=== PATIENT | male | born 1965 | race American Indian/Alaskan Native ===

== ENCOUNTER 2018-12-22 12:16 | Inpatient (IN) | payer MEDICARE ==
[2018-12-22] MEDS ORDERED: ACTIVASE ONE (12:29)
--- NOTE | 2018-12-22 12:41 | Emergency Department Report ---
ED Neuro Deficit HPI - General Chief Complaint: Neuro Symptoms/Deficit Stated Complaint: POSSIBLE STROKE Time Seen by Provider: 12/22/18 12:32 Source: patient, family, EMS (verbal report received from EMS.ems notes not available at time of chart dictation), RN notes reviewed Mode of arrival: Ambulatory Limitations: Physical Limitation, Other (the patient is a poor historian. The patient's is a poor historian.) - History of Present Illness Initial Comments: This is a 53-year-old gentleman. The patient is not known to this provider previously. He does not know who his primary care doctor is. His does not know who his primary care doctor is. He reportedly has a history of hypertension, 2 strokes, residual left-sided weakness, left-sided facial droop, and residual dysarthria. He may or may not have a formal diagnosis of seizures. He is not sure. His is not sure. History obtained from the patient and his . His indicates the patient was in his usual state of health up until approximately 10:30 AM. They were eating breakfast this morning. She reports that she went upstairs, called his name, and he did not answer back as usual. She reports that she then walked down the stairs, and found him slumped over at a table, not responsive, and sweating. She is not sure how long this episode lasted for. She does not think that there was any trauma. She contacted 911. Patient had normal fingerstick in the field. In the field, as per EMS, the patient was a phasic, and a code stroke is called overhead. A noncontrast CT scan of the brain was negative for acute disease. After returning from CT scan, the patient was noted to be moving his arms and legs without difficulty, with the exception of left-sided weakness, which his indicated was at his baseline. His a facial improved. The patient indicated no pain. The patient is not able to describe exacerbating or relieving factors, qualitative nature of his symptoms, or radiation of his symptoms. However, he indicated no headache, no neck pain, no chest pain, no abdominal pain, no urinary symptoms. His believes that he takes for blood pressure medications, that he may take systemic anticoagulation, but she is not sure. Neither the patient or his are able to procure a complete list of his medications at this time. -: Sudden Location: speech, left face, left arm Presenting Symptoms: Present: Weak/Paralyzed One Side, Unable to Speak Clearly, Altered Mental Status History of same: Yes Place: home Severity: severe Quality: other Improves With: other Worsens With: other - Related Data Home Medications: Home Medications Medication Instructions Recorded Confirmed Last Taken Aspirin [Adult Aspirin] 81 mg PO DAILY 12/22/18 12/22/18 12/22/18 AtorvaSTATin [Lipitor] 40 mg PO DAILY 12/22/18 12/22/18 12/22/18 Carvedilol [Coreg] 25 mg PO BID 12/22/18 12/22/18 12/22/18 Losartan [Cozaar] 50 mg PO QDAY 12/22/18 12/22/18 12/22/18 amLODIPine [Norvasc] 10 mg PO DAILY 12/22/18 12/22/18 12/22/18 hydrALAZINE [Apresoline TAB] 30 mg PO TID 12/22/18 12/22/18 12/22/18 Allergies/Adverse Reactions: Allergies Allergy/AdvReac Type Severity Reaction Status Date / Time No Known Allergies Allergy Unverified 12/22/18 12:19 ED Review of Systems ROS: Stated complaint: POSSIBLE STROKE Other details as noted in HPI Comment: Unobtainable due to pts medical conditions Constitutional: weakness Eyes: denies: eye discharge ENT: denies: epistaxis Respiratory: denies: cough Cardiovascular: denies: chest pain Gastrointestinal: denies: abdominal pain Genitourinary: denies: dysuria Neurological: weakness ED Past Medical Hx - Past Medical History Hx Hypertension: Yes Hx CVA: Yes (left weakness) Hx Seizures: Yes - Surgical History Past Surgical History?: No - Medications Home Medications: Home Medications Medication Instructions Recorded Confirmed Last Taken Type Aspirin [Adult Aspirin] 81 mg PO DAILY 12/22/18 12/22/18 12/22/18 History AtorvaSTATin [Lipitor] 40 mg PO DAILY 12/22/18 12/22/18 12/22/18 History Carvedilol [Coreg] 25 mg PO BID 12/22/18 12/22/18 12/22/18 History Losartan [Cozaar] 50 mg PO QDAY 12/22/18 12/22/18 12/22/18 History amLODIPine [Norvasc] 10 mg PO DAILY 12/22/18 12/22/18 12/22/18 History hydrALAZINE [Apresoline TAB] 30 mg PO TID 12/22/18 12/22/18 12/22/18 History ED Neuro Physical Exam - General Limitations: Physical Limitation, Other (patient is a poor historian.) General appearance: alert, in no apparent distress Suspected Stroke: No - Head Head exam: Present: atraumatic, normocephalic - Eye Eye exam: Present: normal appearance, EOMI. Absent: nystagmus - ENT ENT exam: Present: normal exam, normal orophraynx, mucous membranes moist, normal external ear exam - Neck Neck exam: Present: normal inspection, full ROM. Absent: tenderness, meningismus - Respiratory Respiratory exam: Present: normal lung sounds bilaterally. Absent: respiratory distress - Cardiovascular Cardiovascular Exam: Present: regular rate, normal rhythm, normal heart sounds. Absent: bradycardia, tachycardia, irregular rhythm, systolic murmur, diastolic murmur, rubs, gallop - GI/Abdominal GI/Abdominal exam: Present: soft. Absent: distended, tenderness, guarding, rebound, rigid, pulsatile mass - Rectal Rectal exam: Present: deferred - Extremities Exam Extremities exam: Present: normal inspection, other (2+ pulses noted in the bilateral upper, lower extremities. Compartments soft. No long bony tenderness. The pelvis is stable.). Absent: tenderness, joint swelling, calf tenderness - Back Exam Back exam: Present: normal inspection, full ROM. Absent: tenderness, CVA tenderness (R), CVA tenderness (L), paraspinal tenderness, vertebral tenderness - Neurological Exam Neurological exam: Present: alert, other (there is a left-sided facial droop. The extraocular movements are intact bilaterally. Hearing is grossly intact. Tongue is midline. Visual acuity is grossly intact to finger counting. Shoulder shrug is intact bilaterally. There is 4 out of 5 strength left arm, left leg. There is 5 out of 5 strength right arm, right leg. Patient endorses equal sensation to light touch bilateral upper, lower extremities.) - NIHSS Assessment Interval: Baseline 1a. Level of Consciousness: alert/keenly responsive 1b. LOC Questions: answers both correctly 1c. LOC Commands: performs tasks correctly 2. Best Gaze: normal 3. Visual: no visual loss 4. Facial Palsy: minor paralysis 5b. Motor Arm Right: no drift 5a. Motor Arm Left: drift 6a. Motor Leg Left: drift 6b. Motor Leg Right: no drift 7. Limb Ataxia: absent 8. Sensory: normal 9. Best Language: no aphasia 10. Dysarthria: mild/moderate dysarthria 11. Extinction/Inattention: no abnormality Total Score: 4 Stroke Severity: Minor Stroke - Psychiatric Psychiatric exam: Present: normal affect, normal mood, flat affect - Skin Skin exam: Present: warm, dry, intact, normal color. Absent: rash ED Course Vital Signs 12/22/18 12/22/18 12:37 12:48 Temperature 98.2 F Pulse Rate 71 Respiratory 15 15 Rate Blood Pressure 123/62 [Left] O2 Sat by Pulse 96 99 Oximetry - Lab Data Result diagrams: 12/22/18 12:50 12/22/18 12:50 Lab Results 12/22/18 12/22/18 12/22/18 Range/Units 12:50 12:50 12:50 WBC 9.2 (4.5-11.0) K/mm3 RBC 5.00 (3.65-5.03) M/mm3 Hgb 12.2 (11.8-15.2) gm/dl Hct 38.1 (35.5-45.6) % MCV 76 L (84-94) fl MCH 24 L (28-32) pg MCHC 32 (32-34) % RDW 14.9 (13.2-15.2) % Plt Count 269 (140-440) K/mm3 Lymph % (Auto) 17.0 (13.4-35.0) % [place] % (Auto) 5.7 (0.0-7.3) % Eos % (Auto) 0.6 (0.0-4.3) % Baso % (Auto) 0.6 (0.0-1.8) % Lymph # 1.6 (1.2-5.4) K/mm3 [place] # 0.5 (0.0-0.8) K/mm3 Eos # 0.1 (0.0-0.4) K/mm3 Baso # 0.1 (0.0-0.1) K/mm3 Seg Neutrophils % 76.1 H (40.0-70.0) % Seg Neutrophils # 7.0 (1.8-7.7) K/mm3 PT 14.6 (12.2-14.9) Sec. INR 1.17 H (0.87-1.13) APTT 29.7 (24.2-36.6) Sec. Thrombin Time (15.1-19.6) Sec. Sodium 138 (137-145) mmol/L Potassium 4.0 (3.6-5.0) mmol/L Chloride 100.8 (98-107) mmol/L Carbon Dioxide 24 (22-30) mmol/L Anion Gap 17 mmol/L BUN 23 H (9-20) mg/dL Creatinine 1.2 (0.8-1.5) mg/dL Estimated GFR > 60 ml/min BUN/Creatinine Ratio 19 % Glucose 103 H (75-100) mg/dL Calcium 9.5 (8.4-10.2) mg/dL Troponin T < 0.010 (0.00-0.029) ng/mL 12/22/18 Range/Units 12:50 WBC (4.5-11.0) K/mm3 RBC (3.65-5.03) M/mm3 Hgb (11.8-15.2) gm/dl Hct (35.5-45.6) % MCV (84-94) fl MCH (28-32) pg MCHC (32-34) % RDW (13.2-15.2) % Plt Count (140-440) K/mm3 Lymph % (Auto) (13.4-35.0) % [place] % (Auto) (0.0-7.3) % Eos % (Auto) (0.0-4.3) % Baso % (Auto) (0.0-1.8) % Lymph # (1.2-5.4) K/mm3 [place] # (0.0-0.8) K/mm3 Eos # (0.0-0.4) K/mm3 Baso # (0.0-0.1) K/mm3 Seg Neutrophils % (40.0-70.0) % Seg Neutrophils # (1.8-7.7) K/mm3 PT (12.2-14.9) Sec. INR (0.87-1.13) APTT (24.2-36.6) Sec. Thrombin Time 16.3 (15.1-19.6) Sec. Sodium (137-145) mmol/L Potassium (3.6-5.0) mmol/L Chloride (98-107) mmol/L Carbon Dioxide (22-30) mmol/L Anion Gap mmol/L BUN (9-20) mg/dL Creatinine (0.8-1.5) mg/dL Estimated GFR ml/min BUN/Creatinine Ratio % Glucose (75-100) mg/dL Calcium (8.4-10.2) mg/dL Troponin T (0.00-0.029) ng/mL Labs 12/22/18 12/22/18 12/22/18 12:50 12:50 12:50 WBC 9.2 RBC 5.00 Hgb 12.2 Hct 38.1 MCV 76 L MCH 24 L MCHC 32 RDW 14.9 Plt Count 269 Lymph % (Auto) 17.0 [place] % (Auto) 5.7 Eos % (Auto) 0.6 Baso % (Auto) 0.6 Lymph # 1.6 [place] # 0.5 Eos # 0.1 Baso # 0.1 Seg Neutrophils % 76.1 H Seg Neutrophils # 7.0 PT 14.6 INR 1.17 H APTT 29.7 Thrombin Time Sodium 138 Potassium 4.0 Chloride 100.8 Carbon Dioxide 24 Anion Gap 17 BUN 23 H Creatinine 1.2 Estimated GFR > 60 BUN/Creatinine Ratio 19 Glucose 103 H Calcium 9.5 Troponin T < 0.010 12/22/18 12:50 WBC RBC Hgb Hct MCV MCH MCHC RDW Plt Count Lymph % (Auto) [place] % (Auto) Eos % (Auto) Baso % (Auto) Lymph # [place] # Eos # Baso # Seg Neutrophils % Seg Neutrophils # PT INR APTT Thrombin Time 16.3 Sodium Potassium Chloride Carbon Dioxide Anion Gap BUN Creatinine Estimated GFR BUN/Creatinine Ratio Glucose Calcium Troponin T Vital Signs 12/22/18 12/22/18 12:37 12:48 Temperature 98.2 F Pulse Rate 71 Respiratory 15 15 Rate Blood Pressure 123/62 [Left] O2 Sat by Pulse 96 99 Oximetry - EKG Data -: EKG Interpreted by [facility] EKG shows normal: sinus rhythm Rate: normal When compared to previous EKG there are: previous EKG unavailable 12/22/18 13:31 There is no prior EKG for comparison. This is a sinus rhythm, 63 bpm, left axis deviation, left anterior fascicular block, prolonged LA interval, poor R progression, T-wave inversions in the lateral leads, abnormal EKG, no endorsement of chest pain, this EKG is not consistent with ST elevation myocardial infarction. - Radiology Data Radiology results: report reviewed, image reviewed interpreted by me: X-ray chest appears to be unremarkable Noncontrast CT scan of the brain is negative for acute disease. - Medical Decision Making Differential diagnosis, including but not limited to: Seizure, transient ischemic attack, pneumonia, urinary tract infection, Kevin's paralysis Assessment and plan: 53-year-old gentleman, with episode of unresponsiveness, now back to his mental status baseline, now back to his neurologic baseline, this is corroborated by the patient's . The patient is not a TPA candidate as the family endorses that the patient is back to his neurologic baseline, and there is a high suspicion for a seizure. His exam does not appear to be consistent or suggestive of a large vessel occlusion, and an emergent CT angiogram is not recommended by consulting stroke neurology, Dr. Choi. He is agreeable to initiation of aspirin therapy, keppra therapy, and hospitalization for further evaluation and workup. I discussed this with patient and who are agreeable. Nursing team and an cillary team are attempting to obtain patient's complete list of medications, his did suggest that he may be on systemic anticoagulation, but was not able to provide a definitive response, and therefore, given this ambiguity, this is another contraindication to thrombolysis. Dr Smith to admit - Core Measures Measure Exclusions: not indicated - Thrombolytic Inclusion/Exclusion Thrombolytic Exclusion Criteria: Onset of Symptoms Unknown Thrombolytic Contraindications: Rapidily Improving s/s Critical care attestation.: If time is entered above; I have spent that time in minutes in the direct care of this critically ill patient, excluding procedure time. ED Disposition Clinical Impression: TIA (transient ischemic attack) Disposition: 09 OP ADMIT IP TO THIS HOSP Is pt being admited?: Yes Does the pt Need Aspirin: Yes Condition: Stable Referrals: ERICK HESTER MD [Primary Care Provider] - 3-5 Days
--- NOTE | 2018-12-22 12:42 | Cat Scan Report ---
CT HEAD WITHOUT CONTRAST: HISTORY: Stroke. TECHNIQUE: Sequential 2.5mm CT images. COMPARISON: none. FINDINGS: Cerebral Parenchyma: Moderate nonspecific chronic white matter changes are identified. Chronic focal infarcts are identified in both basal ganglia. No large chronic infarct. The remaining brain parenchyma is unremarkable. Cerebellum: Within normal limits. Brainstem: Within normal limits. Ventricles: Normal. Sella: Normal. Extra-axial spaces: Normal. Basal Cisterns: Normal. Intracranial Hemorrhage: None. Midline Shift: None. Calvarium: Normal. Sinuses: Normal. Mastoid Air Cells: Normal. Visualized Orbits: Normal. IMPRESSION: No acute intracranial process. Nonspecific chronic white matter changes. Chronic focal infarcts in both basal ganglia. These findings were discussed with Dr. Mcnally in the emergency department at 1236 hrs.
[2018-12-22 12:57] LABS: Basophils # (Auto) 0.1 K/mm3 (0.0-0.1); Basophils % (Auto) 0.6 % (0.0-1.8); Eosinophils # (Auto) 0.1 K/mm3 (0.0-0.4); Eosinophils % (Auto) 0.6 % (0.0-4.3); Hematocrit 38.1 % (35.5-45.6); Hemoglobin 12.2 gm/dl (11.8-15.2); Lymphocytes # (Auto) 1.6 K/mm3 (1.2-5.4); Mean Corpuscular HGB Conc 32 % (32-34); Mean Corpuscular Volume 76 fl (84-94); Monocytes # (Auto) 0.5 K/mm3 (0.0-0.8); Monocytes % (Auto) 5.7 % (0.0-7.3); Platelet Count 269 K/mm3 (140-440); Red Cell Distribution Width 14.9 % (13.2-15.2)
[2018-12-22 13:08] LABS: INR 1.17 (0.87-1.13)
[2018-12-22 13:09] LABS: Partial Thromboplastin Time 29.7 Sec. (24.2-36.6)
--- NOTE | 2018-12-22 13:17 | Emergency Department Report ---
ED Neuro Deficit HPI - General Chief Complaint: Neuro Symptoms/Deficit Stated Complaint: POSSIBLE STROKE Time Seen by Provider: 12/22/18 12:32 Source: patient Mode of arrival: Ambulatory Limitations: No Limitations, Other - History of Present Illness Initial Comments: [facility] Impression: tia v seizure. Patient was found on the floor with worsened left sided weakness and not responding. Previous seizure. Symptom onset was not witnessed. Currently back at his baseline. Not a tpa candidate due to: back to baseline, unclear of meds- apparently takes an anticoagulant Does not meet LVO screening criteria (no aphasia, neglect, gaze deviation, dense hemiparesis, visual field deficits on exam); therefore, advanced imaging not recommended. Comments: [facility] contacted: [id number] [facility] at bedside: 1213 NIHSS assessment time: 1230 Recommendations: Activate Stroke protocol admission/order set Stroke/telemetry floor Neuro checks Bedside swallow eval Dvt prophylaxis IV fluids, normal saline Keppra iv 1g iv now, continue maintenance of 500mg bid ASA if no contraindications or continue home anticoagulant once they are verified Head of bed below 30 degrees Euglycemia and avoid hyperthermia (prn acetaminophen) inpatient neurology consultation Inpatient stroke evaluation as per Neurology/ Internal Medicine Discussed with ED MD CC worse left sided weakness History of Present Illness Patient is a 53 year old man who was last seen normal at around 1030 am. At around 1100, the called for him to come up stairs and he didnt answer. She found him on the floor with worsened left sided weakness and not speakin g/confused. This episode was unwitnessed. The patient does have left sided weakness and dysarthria from a previous stroke. Apparently had a seizure about 3 months ago, but was not placed on an AED. He is on an anticoagulant, but it is not known Diagnostic: Ct head without contrast: bilateral bg lacunes, right frontal hypodensity/encephalomalacia Medical Decision Making: - Extensive number of diagnosis or management options are considered above. - Extensive amount of complex data reviewed. - High risk of complication and/or morbidity or mortality are associated with differential diagnostic considerations above. - There may be Uncertain outcome and increased probability of prolonged functional impairment or high probability of severe prolonged functional impairment associated with some of these differential diagnosis. Medical Data Reviewed: 1.Data reviewed include clinical labs, radiology, Medical Tests; 2.Tests results discussed w/performing or interpreting physician; 3.Obtaining/reviewing old medical records; 4.Obtaining case history from another source; 5.Independent review of image, tracing or specimen. Patient was informed the Neurology Consult would happen via telehealth (remote video) and consented to receiving care in this manner. - Related Data Allergies/Adverse Reactions: Allergies Allergy/AdvReac Type Severity Reaction Status Date / Time No Known Allergies Allergy Unverified 12/22/18 12:19 ED Review of Systems ROS: Stated complaint: POSSIBLE STROKE Other details as noted in HPI ED Past Medical Hx - Past Medical History Hx Hypertension: Yes Hx CVA: Yes (left weakness) Hx Seizures: Yes - Surgical History Past Surgical History?: No - Social History Smoking Status: Never Smoker Substance Use Type: None ED Neuro Physical Exam - General Limitations: No Limitations, Other Suspected Stroke: No - NIHSS Assessment Interval: Baseline 1a. Level of Consciousness: alert/keenly responsive 1b. LOC Questions: answers both correctly 1c. LOC Commands: performs tasks correctly 2. Best Gaze: normal 3. Visual: no visual loss 4. Facial Palsy: minor paralysis 5b. Motor Arm Right: no drift 5a. Motor Arm Left: drift 6a. Motor Leg Left: drift 6b. Motor Leg Right: no drift 7. Limb Ataxia: absent 8. Sensory: normal 9. Best Language: no aphasia 10. Dysarthria: mild/moderate dysarthria 11. Extinction/Inattention: no abnormality Total Score: 4 Stroke Severity: Minor Stroke ED Course Vital Signs 12/22/18 12/22/18 12:37 12:48 Temperature 98.2 F Pulse Rate 71 Respiratory 15 15 Rate Blood Pressure 123/62 [Left] O2 Sat by Pulse 96 99 Oximetry - Lab Data Result diagrams: 12/22/18 12:50 Lab Results 12/22/18 12/22/18 12/22/18 Range/Units 12:50 12:50 12:50 WBC 9.2 (4.5-11.0) K/mm3 RBC 5.00 (3.65-5.03) M/mm3 Hgb 12.2 (11.8-15.2) gm/dl Hct 38.1 (35.5-45.6) % MCV 76 L (84-94) fl MCH 24 L (28-32) pg MCHC 32 (32-34) % RDW 14.9 (13.2-15.2) % Plt Count 269 (140-440) K/mm3 Lymph % (Auto) 17.0 (13.4-35.0) % [place] % (Auto) 5.7 (0.0-7.3) % Eos % (Auto) 0.6 (0.0-4.3) % Baso % (Auto) 0.6 (0.0-1.8) % Lymph # 1.6 (1.2-5.4) K/mm3 Iron # 0.5 (0.0-0.8) K/mm3 Eos # 0.1 (0.0-0.4) K/mm3 Baso # 0.1 (0.0-0.1) K/mm3 Seg Neutrophils % 76.1 H (40.0-70.0) % Seg Neutrophils # 7.0 (1.8-7.7) K/mm3 PT 14.6 (12.2-14.9) Sec. INR 1.17 H (0.87-1.13) APTT 29.7 (24.2-36.6) Sec. Thrombin Time 16.3 (15.1-19.6) Sec. Critical care attestation.: If time is entered above; I have spent that time in minutes in the direct care of this critically ill patient, excluding procedure time. ED Disposition Clinical Impression: Seizure Disposition: DC-09 OP ADMIT IP TO THIS HOSP Is pt being admited?: Yes Condition: Stable Referrals: ERICK HESTER MD [Primary Care Provider] - 3-5 Days
[2018-12-22] MEDS ORDERED: KEPPRA 1,000 MG/NS 0.75% 100ML 1,000 MG/100 ML BAG IV ONE (13:21)
[2018-12-22] MEDS ORDERED: ASPIRIN PO ONE (13:21)
[2018-12-22 13:23] LABS: BUN/Creatinine Ratio 19; Blood Urea Nitrogen 23 mg/dL (9-20); Calcium 9.5 mg/dL (8.4-10.2); Hemolysis Index 4
--- NOTE | 2018-12-22 13:52 | XRay Report ---
AP CHEST: HISTORY: CVA, TIA, seizure AP view of the chest demonstrates a normal mediastinal and cardiac contour with clear lungs and normal bony and soft tissue structures. IMPRESSION: Unremarkable AP chest.
[2018-12-22 18:41] LABS: Bilirubin,Urine NEG (Negative); Blood,Urine NEG (Negative); Color,Urine Yellow (Yellow); Mucus,Urine FEW /HPF; Protein,Urine <15 mg/dL mg/dL (Negative)
--- NOTE | 2018-12-22 20:50 | History and Physical Report ---
History of Present Illness Date of examination: 12/22/18 Date of admission: 12/22/18 13:44 Medications and Allergies Allergies Allergy/AdvReac Type Severity Reaction Status Date / Time No Known Allergies Allergy Unverified 12/22/18 12:19 Home Medications Medication Instructions Recorded Confirmed Last Taken Type Aspirin [Adult Aspirin] 81 mg PO DAILY 12/22/18 12/22/18 12/22/18 History AtorvaSTATin [Lipitor] 40 mg PO DAILY 12/22/18 12/22/18 12/22/18 History Carvedilol [Coreg] 25 mg PO BID 12/22/18 12/22/18 12/22/18 History Losartan [Cozaar] 50 mg PO QDAY 12/22/18 12/22/18 12/22/18 History amLODIPine [Norvasc] 10 mg PO DAILY 12/22/18 12/22/18 12/22/18 History hydrALAZINE [Apresoline TAB] 30 mg PO TID 12/22/18 12/22/18 12/22/18 History Exam - Constitutional Vitals: Temp Pulse Resp BP Pulse Ox 98.2 F 67 15 106/43 100 12/22/18 12:37 12/22/18 17:00 12/22/18 17:00 12/22/18 17:00 12/22/18 17:00 Results - Labs CBC & Chem 7: 12/22/18 12:50 12/22/18 12:50 Labs: Laboratory Last Values WBC 9.2 K/mm3 (4.5-11.0) 12/22/18 12:50 RBC 5.00 M/mm3 (3.65-5.03) 12/22/18 12:50 Hgb 12.2 gm/dl (11.8-15.2) 12/22/18 12:50 Hct 38.1 % (35.5-45.6) 12/22/18 12:50 MCV 76 fl (84-94) L 12/22/18 12:50 MCH 24 pg (28-32) L 12/22/18 12:50 MCHC 32 % (32-34) 12/22/18 12:50 RDW 14.9 % (13.2-15.2) 12/22/18 12:50 Plt Count 269 K/mm3 (140-440) 12/22/18 12:50 Lymph % (Auto) 17.0 % (13.4-35.0) 12/22/18 12:50 [place] % (Auto) 5.7 % (0.0-7.3) 12/22/18 12:50 Eos % (Auto) 0.6 % (0.0-4.3) 12/22/18 12:50 Baso % (Auto) 0.6 % (0.0-1.8) 12/22/18 12:50 Lymph # 1.6 K/mm3 (1.2-5.4) 12/22/18 12:50 [place] # 0.5 K/mm3 (0.0-0.8) 12/22/18 12:50 Eos # 0.1 K/mm3 (0.0-0.4) 12/22/18 12:50 Baso # 0.1 K/mm3 (0.0-0.1) 12/22/18 12:50 Seg Neutrophils % 76.1 % (40.0-70.0) H 12/22/18 12:50 Seg Neutrophils # 7.0 K/mm3 (1.8-7.7) 12/22/18 12:50 PT 14.6 Sec. (12.2-14.9) 12/22/18 12:50 INR 1.17 (0.87-1.13) H 12/22/18 12:50 APTT 29.7 Sec. (24.2-36.6) 12/22/18 12:50 16.3 Sec. (15.1-19.6) 12/22/18 12:50 Sodium 138 mmol/L (137-145) 12/22/18 12:50 Potassium 4.0 mmol/L (3.6-5.0) 12/22/18 12:50 Chloride 100.8 mmol/L (98-107) 12/22/18 12:50 Carbon Dioxide 24 mmol/L (22-30) 12/22/18 12:50 17 mmol/L 12/22/18 12:50 BUN 23 mg/dL (9-20) H 12/22/18 12:50 1.2 mg/dL (0.8-1.5) 12/22/18 12:50 Estimated GFR > 60 ml/min 12/22/18 12:50 19 % 12/22/18 12:50 Glucose 103 mg/dL (75-100) H 12/22/18 12:50 Calcium 9.5 mg/dL (8.4-10.2) 12/22/18 12:50 < 0.010 ng/mL (0.00-0.029) 12/22/18 12:50 Yellow (Yellow) 12/22/18 18:26 Clear (Clear) 12/22/18 18:26 6.0 (5.0-7.0) 12/22/18 18:26 Ur Specific Ada 1.015 (1.003-1.030) 12/22/18 18:26 <15 mg/dl mg/dL (Negative) 12/22/18 18:26 Neg mg/dL (Negative) 12/22/18 18:26 Neg mg/dL (Negative) 12/22/18 18:26 Neg (Negative) 12/22/18 18:26 Neg (Negative) 12/22/18 18:26 Neg (Negative) 12/22/18 18:26 2.0 mg/dL (<2.0) 12/22/18 18:26 Ur Leukocyte Esterase Neg (Negative) 12/22/18 18:26 2.0 /HPF (0.0-6.0) 12/22/18 18:26 1.0 /HPF (0.0-6.0) 12/22/18 18:26 U Epithel Cells (Auto) 2.0 /HPF (0-13.0) 12/22/18 18:26 Few /HPF 12/22/18 18:26
[2018-12-22] MEDS ORDERED: SODIUM CHLORIDE FLUSH SYRINGE 10 ML IV PRN (20:52)
[2018-12-22] MEDS ORDERED: ZOFRAN IV PRN (20:52)
[2018-12-22] MEDS ORDERED: TYLENOL PO PRN (20:52)
[2018-12-22] MEDS ORDERED: MORPHINE IV PRN (20:53)
[2018-12-22] MEDS ORDERED: SODIUM CHLORIDE FLUSH SYRINGE 10 ML INJ PRN (20:54)
[2018-12-22] MEDS ORDERED: NACL 0.9% 1000 ML 1,000 ML IV SCH (21:00)
[2018-12-22] MEDS: NORVASC PO SCH (22:00)
[2018-12-22] MEDS: COZAAR PO SCH (22:00)
[2018-12-22] MEDS: COREG PO SCH (22:50)
[2018-12-22] MEDS: SODIUM CHLORIDE FLUSH SYRINGE 10 ML IV SCH (22:50)
--- NOTE | 2018-12-23 07:38 | Event Note ---
Date: 12/22/18 TIA Seizures See H/p in reports
--- NOTE | 2018-12-23 07:41 | Progress Note ---
Assessment and Plan - Patient Problems (1) TIA (transient ischemic attack) Current Visit: Yes Status: Acute Plan to address problem: Resolved (2) Seizure disorder Current Visit: Yes Status: Acute Plan to address problem: On IV Keppra--Transition to PO Keppra "Per Neurology 1. 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 Left hemiparesis 3. Dysarthria Plan: 1. No medications identifiable that might have caused dysarthria though could be part of a Kevin's paresis. 2. EEG waking and drowsy was normal. Continue levetiracetam 1500 mg by mouth twice a day as outpatient. Should follow up with an outpatient neurologist. 3. Watch for improvement if Kevin's paresis, especially since MRI negative for any acute stroke and echo negative on bubble study. 4. Should have 30 day event monitoring for occult PAF as outpatient." (3) CVA (cerebrovascular accident) Current Visit: Yes Status: Chronic Qualifiers: CVA mechanism: unspecified Qualified Code(s): I63.9 - Cerebral infarction, unspecified Plan to address problem: Old with L side residual weakness (4) HTN (hypertension) Current Visit: Yes Status: Acute Qualifiers: Hypertension type: essential hypertension Qualified Code(s): I10 - Essential (primary) hypertension Plan to address problem: Cont antihypertensives (5) HLD (hyperlipidemia) Current Visit: Yes Status: Chronic Qualifiers: Hyperlipidemia type: mixed hyperlipidemia Qualified Code(s): E78.2 - Mixed hyperlipidemia Plan to address problem: Cont statins (6) DVT prophylaxis Current Visit: Yes Status: Acute Plan to address problem: on lovenox and GI prophylaxis Subjective Date of service: 12/23/18 Principal diagnosis: TIA /Seizure disorder/Kevin'as paralysis Interval history: 53-year-old gentleman with history of hypertension, 2 strokes, residual left- sided weakness, left-sided facial droop, and residual dysarthria comes in for seizures. His indicates the patient was in his usual state of health up until approximately 10:30 AM. They were eating breakfast this morning. She reports that she went upstairs, called his name, and he did not answer back as usual. She reports that she then walked down the stairs, and found him slumped over at a table, not responsive, and sweating. She is not sure how long this episode lasted for. She does not think that there was any trauma. She contacted 911. Patient had normal fingerstick in the field. In the field, as per EMS, the patient was aphasic, and a code stroke is called overhead. A noncontrast CT scan of the brain was negative for acute disease. After returning from CT scan, the patient was noted to be moving his arms and legs without difficulty, with the exception of left-sided weakness, which his indicated was at his baseline. His facial wekness improved. The patient indicated no pain. The patient is not able to describe exacerbating or relieving factors, qualitative nature of his symptoms, or radiation of his symptoms. However, he indicated no headache, no neck pain, no chest pain, no abdominal pain, no urinary symptoms.Possible seizure.Tonic clonic in nature. Objective - Constitutional Vitals: Vital Signs - 12hr 12/22/18 12/22/18 12/22/18 19:41 19:50 20:01 Temperature Pulse Rate Pulse Rate [ From Monitor] Respiratory 16 19 Rate Blood Pressure 158/59 166/64 110/37 O2 Sat by Pulse 89 100 100 Oximetry 12/22/18 12/22/18 12/22/18 20:11 20:53 22:50 Temperature Pulse Rate 86 76 Pulse Rate [ 77 From Monitor] Respiratory 18 Rate Blood Pressure 166/64 166/64 O2 Sat by Pulse 100 Oximetry 12/22/18 12/23/18 12/23/18 23:51 01:07 04:28 Temperature 97.7 F 98.3 F Pulse Rate 67 67 60 Pulse Rate [ From Monitor] Respiratory 22 22 Rate Blood Pressure 133/79 121/69 O2 Sat by Pulse 99 100 Oximetry General appearance: Present: no acute distress, well-nourished - EENT Eyes: PERRL, EOM intact ENT: hearing intact, clear oral mucosa Ears: bilateral: normal - Neck Neck: supple, normal ROM - Respiratory Respiratory effort: normal Respiratory: bilateral: CTA - Breasts Breasts: deferred, normal - Cardiovascular Heart rate: 78 Rhythm: regular Heart Sounds: Present: S1 & S2. Absent: gallop, rub Extremities: pulses intact, No edema, normal color, Full ROM - Gastrointestinal General gastrointestinal: Present: soft, non-tender, non-distended, normal bowel sounds - Genitourinary Male genitourinary: normal - Integumentary Integumentary: clear, warm, dry - Musculoskeletal Musculoskeletal: left sided weakness - Neurologic Neurologic: focal deficits (l side weakness 4/5 power in LUE and LLE), moves all extremities - Psychiatric Psychiatric: memory intact, appropriate mood/affect, intact judgment & insight - Allied health notes Allied health notes reviewed: nursing, case management - Labs CBC & Chem 7: 12/23/18 19:23 12/23/18 19:23 Labs: Abnormal lab results 12/22/18 12/22/18 12/22/18 Range/Units 12:50 12:50 12:50 MCV 76 L (84-94) fl MCH 24 L (28-32) pg Seg Neutrophils % 76.1 H (40.0-70.0) % INR 1.17 H (0.87-1.13) BUN 23 H (9-20) mg/dL Glucose 103 H (75-100) mg/dL Short CBC 12/22/18 Range/Units 12:50 WBC 9.2 (4.5-11.0) K/mm3 Hgb 12.2 (11.8-15.2) gm/dl Hct 38.1 (35.5-45.6) % Plt Count 269 (140-440) K/mm3 BMP 12/22/18 12:50 Sodium 138 Potassium 4.0 Chloride 100.8 Carbon Dioxide 24 BUN 23 H Creatinine 1.2 Glucose 103 H Calcium 9.5 Cardiac Enzymes 12/22/18 Range/Units 12:50 Troponin T < 0.010 (0.00-0.029) ng/mL Urine 12/22/18 Range/Units 18:26 Urine Color Yellow (Yellow) Urine pH 6.0 (5.0-7.0) Ur Specific [place] 1.015 (1.003-1.030) Urine Protein <15 mg/dl (Negative) mg/dL Urine Glucose (UA) Neg (Negative) mg/dL
[2018-12-23] MEDS: APRESOLINE PO SCH ×3 (09:00→21:20)
[2018-12-23] MEDS: SODIUM CHLORIDE FLUSH SYRINGE 10 ML IV SCH ×2 (09:00→21:21)
[2018-12-23] MEDS: NORVASC PO SCH (09:00)
[2018-12-23] MEDS: COREG PO SCH ×2 (09:00→21:20)
[2018-12-23] MEDS: COZAAR PO SCH (09:00)
[2018-12-23] MEDS: HALFPRIN EC PO SCH (09:00)
--- NOTE | 2018-12-23 10:07 | History and Physical Report ---
CHIEF COMPLAINT: Seizures and left-sided weakness. HISTORY OF PRESENT ILLNESS: A 53-year-old male while eating breakfast, the patient was found slumped over. Also, the patient became aphasic. The patient was also having a movement in his left upper and left lower extremities consistent with seizure. Over the next one hour, symptoms have improved. The patient continued to have left-sided weakness. PAST MEDICAL HISTORY: Significant for CVA with left-sided weakness, hypertension, and seizures. CURRENT MEDICATIONS: Amlodipine, hydralazine, hyperlipidemia. PAST SURGICAL HISTORY: None. FAMILY HISTORY: Hypertension. SOCIAL HISTORY: Does not smoke. No alcohol, no recreational drugs. REVIEW OF SYSTEMS: Significant for left-sided weakness and seizures and syncopal episode x 1. PHYSICAL EXAMINATION: GENERAL: Middle-aged male, cooperative during examination. VITAL SIGNS: Blood pressure is 133/79, temperature 97.7, pulse is 76, respirations 16. HEENT: Unremarkable. Pupils equal and reactive. NECK: Supple, no lymphadenopathy, no thyromegaly. LUNGS: Clear to auscultation and percussion. Good air entry. CARDIOVASCULAR: S1, S2 heard. No gallop, no murmur, no rub. Apical impulse in left fifth intercostal space in midclavicular line. ABDOMEN: Soft and benign. No hepatosplenomegaly. No guarding, no rigidity. Hernial orifices are normal. EXTREMITIES: Good pedal pulses. Left-sided weakness present. CENTRAL NERVOUS SYSTEM: Left-sided weakness present. A 3/5 power in both left upper and left lower extremity. Left facial palsy present. Sensory system is normal. Other cranial nerves are normal. SKIN: Normal. LABORATORY DATA: Significant for normal CBC. MCV and MCH are slightly low. Electrolytes are normal. BUN and creatinine is 23 and 1.2. Urine is normal. Head CT shows no acute intracranial process. Nonspecific chronic white matter changes, chronic focal infarcts in both basal ganglia. Chest x-ray, no acute changes. ASSESSMENT AND PLAN: 1. Transient ischemic attack workup. The patient to get MRI, MRA, carotid duplex scan, and echocardiogram. 2. Seizures. The patient initiated on IV Keppra. 3. Old cerebrovascular accident, stable. 4. Hypertension. Continue antihypertensives. 5. Hyperlipidemia. Continue atorvastatin 40 mg daily. 6. Deep venous thrombosis prophylaxis, Lovenox 40 mg subcutaneous daily. Transient ischemic attack workup in summary. Neurology consult requested. JOB# [id number] BRAD/PHILIPP JARAMILLO
--- NOTE | 2018-12-23 11:19 | Vascular Lab Report ---
PROCEDURE: VL CAROTID DUPLEX BILAT TECHNIQUE: Duplex Doppler ultrasound of the common, internal and external carotid arteries and the v ertebral arteries was performed bilaterally. Myers scale imaging, velocity spectral waveform analysis, and color flow Doppler were employed. HISTORY: stroke COMPARISONS: None . Note: Measurement of carotid stenosis is based on flow velocity values that correlate with the [place] Symptomatic Carotid Endarterectomy Trial (NASCET) based stenosis criteria using the internal carotid artery diameter as the denominator for stenosis calculation. FINDINGS: RIGHT carotid artery: Velocities: ICA PSV: 79 cm/sec ICA End diastolic: 37 cm/sec CCA PSV: 110 cm/sec IC/CC ratio: 0.7 2 Plaque/color flow: Mild heterogeneous plaque without significant spectral broadening or abnormal col or flow . RIGHT vertebral artery: Antegrade systolic and diastolic flow LEFT carotid artery: Velocities: ICA PSV: 85 cm/sec ICA End diastolic: 34 cm/sec CCA PSV: 155 cm/sec IC/CC ratio: 0.5 5 Plaque/color flow: Mild heterogeneous plaque without significant spectral broadening or abnormal col or flow . LEFT vertebral artery: Antegrade systolic and diastolic flow IMPRESSION: 1. RIGHT carotid: No hemodynamically significant (less than 50 percent) internal carotid artery augusto nosis. 2. LEFT carotid: No hemodynamically significant (less than 50 percent) internal carotid artery sten osis. 3. Vertebral arteries: Bilaterally antegrade. This document is electronically signed by Felicity Bustamante., December 23 2018 11:17:05 AM ET
--- NOTE | 2018-12-23 12:22 | Magnetic Resonance Report ---
MRI OF THE BRAIN WITHOUT CONTRAST: HISTORY: Stroke PROCEDURE: Multiplanar, multisequence MR imaging of the brain without IV contrast was performed. FINDINGS: Compared to the CT dated 12/22/18. There is no evidence for diffusion restriction, hemorrhage, mass or extra-axial fluid collection. Moderate nonspecific T2 signal abnormalities are identified in the white matter. This is probably related to chronic microvascular ischemic disease. Chronic bilateral basal ganglia infarcts are identified. Hemosiderin deposition is identified, particularly on the right side, indicating a chronic hemorrhagic stroke or hemorrhagic transformation. Tiny chronic cortical infarct in the medial left frontal lobe is also identified. The axial T2 gradient images demonstrate multiple tiny foci of decreased signal scattered throughout the cerebellum, brainstem and posterior cerebral hemispheres. This could be related to amyloid angiopathy. The midline structures are central. The basal cisterns are patent. Normal ventricular size. The orbital cavities and sella turcica demonstrate no abnormality. The visualized paranasal sinuses and mastoid air cells are well aerated. IMPRESSION: No acute intracranial process is identified. Advanced chronic white matter changes for this persons age. Chronic hemorrhagic infarcts in the bilateral basal ganglia and medial left frontal lobe as described. Gradient imaging suggesting numerous chronic microhemorrhages. Consider amyloid angiopathy.
--- NOTE | 2018-12-23 12:24 | Magnetic Resonance Report ---
MRA HEAD WITHOUT CONTRAST HISTORY: Stroke. [id number] imaging with MIP reformations of the [place] of [place] is submitted. The arteries appear widely patent and free of hemodynamically significant stenosis, aneurysm or dissection. IMPRESSION: Unremarkable MRA head.
[2018-12-23] MEDS: KEPPRA PO SCH ×2 (14:17→21:21)
[2018-12-23 20:06] LABS: Basophils # (Auto) 0.1 K/mm3 (0.0-0.1); Basophils % (Auto) 0.8 % (0.0-1.8); Eosinophils # (Auto) 0.1 K/mm3 (0.0-0.4); Hematocrit 34.2 % (35.5-45.6); Hemoglobin 11.4 gm/dl (11.8-15.2); Mean Corpuscular HGB Conc 33 % (32-34); Mean Corpuscular Volume 75 fl (84-94); Monocytes # (Auto) 0.8 K/mm3 (0.0-0.8); Monocytes % (Auto) 8.4 % (0.0-7.3); Platelet Count 241 K/mm3 (140-440); Red Blood Count 4.53 M/mm3 (3.65-5.03); Red Cell Distribution Width 14.7 % (13.2-15.2)
[2018-12-23 20:35] LABS: Alanine Aminotransferase 9 units/L (7-56); Albumin 3.9 g/dL (3.9-5); BUN/Creatinine Ratio 14; Blood Urea Nitrogen 20 mg/dL (9-20); Calcium 9.3 mg/dL (8.4-10.2); Chol/HDL Ratio 2.93 %; HDL Cholesterol 48 mg/dL (40-59); Hemolysis Index 6; LDL Cholesterol,Direct 87 mg/dL (50-130)
--- NOTE | 2018-12-23 21:16 | Consultation ---
History of Present Illness Consult date: 12/23/18 Requesting physician: HUAN SERRA Reason for Consult: weak left side, possible seizure Chief complaint: weak left side, possible seizure History of present illness: This 53-year-old right handed -[place] male had eaten breakfast and when his called him from upstairs he didn't respond and she found him slumped over, sweating and drooling but without facial droop. EMS came and checked his blood sugar but she doesn't know the result and checks his blood pressure but she doesn't know the result. She does not know if he was incontinent because he was wearing a depends but did not have any tongue biting. He had a episode 3 months ago sitting outside when he passed out and was throwing up and did wet himself along with having some drooling. He was taken to the [facility] where he was kept for 3 days, a seizure medication was given, EEG was done which she was told was normal and no diagnosis was given that she he was not sent home on an anticonvulsant. MRI was reportedly negative. He had no warning feeling with either of these episodes. He's had some residual dysarthria from a prior stroke and some residual weakness of the left side but was weaker on the left after this episode though now normal in terms of strength but still with some dysarthria his says. CT scan he showed basal ganglia lacune just bilaterally extending into the left external capsule and radial to the frontal horns and occipital horns. MRI shows evidence of amyloid angiopathy with a larger hemorrhagic right basal ganglia old stroke and smaller similar territory old stroke on the left as well as left medial frontal hemorrhagic smaller area of old change from an infarct and some FLAIR positive signal periventricularly and in the right ventral sarah. 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 Stroke in March 2018 at [facility] due to hypertension because he was not taking his medications. No prior history of seizures as a child. Surgeries: None Social history negative for tobacco or alcohol or illicit drugs. 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 Family history: Sister and 3 brothers with strokes and all of them his thinks have hypertension. No epilepsy or diabetes. Sister had a brain aneurysm. Review of systems: No headaches or dizziness, snoring can be loud but no pauses noted, never tested for sleep apnea. Naps for 45 minutes 3 times a day and dozes off 20-30 minutes several times as well (never needed this much sleep prior to strokes), not driving. Sleeps 8 hours a night and then is rested. Memory okay but may show bad judgment in telling his how to drive. Gen. appearance: Well-developed but overweight (per VMI) mid 50s - [place] male in no acute distress, seen with his at the bedside. HEENT: Atraumatic normocephalic no bruits, superficial temporal artery pulses 2+. Oropharynx pink and moist. Neck: Supple no bruits. Heart no murmur or extra sounds. Extremities: 2+ dorsalis pedis pulses, no clubbing cyanosis or edema. Neurologic exam: Mental status: Awake alert oriented to July though knows it is summer, gives year as 2012 but knows the day of the week, gets 03 objects at 3 minutes, gives president after first name prompt, gives Biden as room service bellhop but cannot give correct one after first name and first letter last name as prompts. Serial sevens with at least one error. Cannot spell WORLD or CATCH correctly and trails off when trying to spell his last name backwards after getting the first 4 letters. Cranial nerves: Mei are full, no papilledema, spontaneous venous pulsations are present, PERRLA, EOMs are full without nystagmus or diplopia, facial sensation is intact, enlarged left palpebral fissure and mild left lower facial weakness, [place] is midline, gags are positive and palate rises symmetrically in the midline to phonation, shoulder shrug is 5 right and 4+ left, tongue protrudes in the midline. Cerebellar exam: Finger to nose is intact bilaterally, [id number] is intact on the right but slightly jerky on the left. Sensory exam: Intact to primary modalities and to double simultaneous stim ulation. Motor exam upper extremities: Mild left levitation, pet handler is 3+ left, decreased amplitude of rapid alternating movements on the left. Motor exam of lower extremities: Mild to moderate left leg lag, slower left rapid alternating movements. Iliopsoas, quadriceps, anterior tibials and gastrocnemius are 5 bilaterally. Reflexes: Jaw jerk is slightly positive, palmomental is positive bilaterally and snout is slightly positive. Triceps are 1 on the right and 1+ on the left, biceps and brachioradialis are trace bilaterally. Bee's is negative bilaterally. Knee jerks are 2+ bilaterally and ankle jerks are 1+ on the right and 2+ on the left. Toes are bilaterally downgoing to Babinski testing. Medications and Allergies Allergies Allergy/AdvReac Type Severity Reaction Status Date / Time No Known Allergies Allergy Unverified 12/22/18 12:19 Home Medications Medication Instructions Recorded Confirmed Last Taken Type Aspirin [Adult Aspirin] 81 mg PO DAILY 12/22/18 12/22/18 12/22/18 History AtorvaSTATin [Lipitor] 40 mg PO DAILY 12/22/18 12/22/18 12/22/18 History Carvedilol [Coreg] 25 mg PO BID 12/22/18 12/22/18 12/22/18 History Losartan [Cozaar] 50 mg PO QDAY 12/22/18 12/22/18 12/22/18 History amLODIPine [Norvasc] 10 mg PO DAILY 12/22/18 12/22/18 12/22/18 History hydrALAZINE [Apresoline TAB] 30 mg PO TID 12/22/18 12/22/18 12/22/18 History Active Meds: Active Medications Acetaminophen (Tylenol) 650 mg PO Q4H PRN PRN Reason: Pain MILD(1-3)/Fever >100.5/SUE Amlodipine Besylate (Norvasc) 10 mg PO DAILY [facility] Last Admin: 12/23/18 09:00 Dose: 10 mg Documented by: Aspirin (Halfprin Ec) 81 mg PO DAILY [facility] Last Admin: 12/23/18 09:00 Dose: 81 mg Documented by: Atorvastatin Calcium (Lipitor) 40 mg PO DAILY [facility] Last Admin: 12/23/18 09:00 Dose: 40 mg Documented by: Carvedilol (Coreg) 25 mg PO BID [facility] Last Admin: 12/23/18 09:00 Dose: 25 mg Documented by: Enoxaparin Sodium (Lovenox) 40 mg SUB-Q QDAY@2200 [facility] Hydralazine HCl (Apresoline) 30 mg PO TID [facility] Last Admin: 12/23/18 14:17 Dose: 30 mg Documented by: Levetiracetam (Keppra) 1,500 mg PO BID [facility] Last Admin: 12/23/18 14:17 Dose: 1,500 mg Documented by: Losartan Potassium (Cozaar) 50 mg PO QDAY [facility] Last Admin: 12/23/18 09:00 Dose: 50 mg Documented by: Morphine Sulfate (Morphine) 2 mg IV Q4H PRN PRN Reason: Pain, Moderate (4-6) Ondansetron HCl (Zofran) 4 mg IV Q8H PRN PRN Reason: Nausea And Vomiting Pyridoxine HCl (Vitamin B-6) 200 mg PO QDAY [facility] Sodium Chloride (Sodium Chloride Flush Syringe 10 Ml) 10 ml IV BID [facility] Last Admin: 12/23/18 09:00 Dose: 10 ml Documented by: Sodium Chloride (Sodium Chloride Flush Syringe 10 Ml) 10 ml IV PRN PRN PRN Reason: LINE FLUSH Physical Examination - Vital Signs Vital Signs: Vital Signs Temp Pulse Resp BP Pulse Ox 98.2 F 71 15 123/62 96 12/22/18 12:37 12/22/18 12:37 12/22/18 12:37 12/22/18 12:37 12/22/18 12:37 Results - Laboratory Findings CBC and BMP: 12/23/18 19:23 12/23/18 19:23 Abnormal Lab Findings: Abnormal Labs 12/22/18 12/22/18 12/22/18 12:50 12:50 12:50 Hgb Hct MCV 76 L MCH 24 L [place] % (Auto) Seg Neutrophils % 76.1 H INR 1.17 H BUN 23 H Glucose 103 H 12/23/18 19:23 Hgb 11.4 L Hct 34.2 L MCV 75 L MCH 25 L [place] % (Auto) 8.4 H Seg Neutrophils % INR BUN Glucose Assessment and Plan Impression: 1. Possible seizure with Ekvin's paresis 2. Left hemiparesis 3. Dysarthria Plan: 1. No medications identifiable that might have caused dysarthria though could be part of a Kevin's paresis. 2. EEG waking and drowsy was normal. Continue levetiracetam 1500 mg by mouth twice a day as outpatient. Should follow up with an outpatient neurologist. 3. Watch for improvement if Kevin's paresis, especially since MRI negative for any acute stroke and echo negative on bubble study. 4. Should have 30 day event monitoring for occult PAF as outpatient. 50 minutes spent including review of 100s of MRI images. Thank you for an interesting consultation on this unfortunate mid 50s male. Eriberto evans sign off, call for any questions.
[2018-12-23] MEDS: VITAMIN B-6 PO SCH (21:19)
--- NOTE | 2018-12-23 21:42 | Electroencephalogram Report ---
Electroencephalogram EEG Date of exam: 12/23/18 History: History of seizure 3 months ago but not treated except briefly at [facility]. Possible seizure leading to this admission with left-sided weakness but negative brain MRI for anything acute. Given levetiracetam IV bolus and now po. Impression: This digital EEG was done with 10/20 international montage as a 17 channel recording one of which was EKG. There is 9-10 Hz alpha activity in the posterior leads which attenuates with eye opening, and some anterior beta activity. There is considerable motion at times in the recording producing artifact. No sleep architecture was captured. No epileptiform activity was seen. Description: The waking background shows an appropriate organization with well-defined anterior posterior voltage and frequency gradients. Posteriorly, there is a well-developed alpha rhythm of [ ] Hz which is symmetrical and bilaterally reactive. Anteriorly, there is a pattern of lower voltage and slightly irregular theta and beta range frequencies. During drowsiness, there is attenuation of the background rhythms. The sleep background shows normal organization with well-formed sleep spindles and vertex waves which are synchronous and symmetrical. Throughout, the recording there are no epileptiform abnormalities, focal or lateralizing features, or significant interhemispheric findings. Interpretation: Normal waking and drowsy electroencephalogram for age. This EEG does not exclude epilepsy of partial onset. Up to 4 EEGs over several months may be needed to capture interictal epileptiform activity.
[2018-12-23] MEDS ORDERED: LOVENOX SUB-Q SCH (22:00)
[2018-12-24] MEDS: APRESOLINE PO SCH ×3 (08:59→20:12)
[2018-12-24] MEDS: VITAMIN B-6 PO SCH (10:06)
[2018-12-24] MEDS: COZAAR PO SCH (10:06)
[2018-12-24] MEDS: NORVASC PO SCH (10:07)
[2018-12-24] MEDS: COREG PO SCH (10:07)
[2018-12-24] MEDS: HALFPRIN EC PO SCH (10:08)
[2018-12-24] MEDS: KEPPRA PO SCH (10:08)
[2018-12-24] MEDS: SODIUM CHLORIDE FLUSH SYRINGE 10 ML IV SCH (10:09)
--- NOTE | 2018-12-24 19:39 | Discharge Summary ---
Providers - Providers Date of Admission: 12/22/18 13:44 Date of discharge: 12/24/18 Attending physician: HUAN SERRA 12/22/18 13:16 Consult to Physician [CONS] Urgent Comment: Consulting Provider: BRANDY SHERMAN Physician Instructions: Reason For Exam: tia vs cva 12/22/18 20:53 Consult to Dietitian/Nutrition [CONS] Routine Physician Instructions: Reason For Exam: Reason for Consult: Diet education Consult to Physician [CONS] Routine Comment: Consulting Provider: KRISTY DEL CID Physician Instructions: Reason For Exam: TIA 12/22/18 20:55 Occupational Therapy Evaluate and Treat [CONS] Routine Comment: Reason For Exam: Neuro deficits Physical Therapy Evaluation and Treat [CONS] Routine Comment: Reason For Exam: Neuro deficits [facility] Condition: Stable Hospital course: (1) TIA (transient ischemic attack) Current Visit: Yes Status: Acute Plan to address problem: Resolved (2) Seizure disorder Current Visit: Yes Status: Acute Plan to address problem: On IV Keppra--Transition to PO Keppra "Per Neurology 1. 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 Left hemiparesis 3. Dysarthria Plan: 1. No medications identifiable that might have caused dysarthria though could be part of a Kevin's paresis. 2. EEG waking and drowsy was normal. Continue levetiracetam 1500 mg by mouth twice a day as outpatient. Should follow up with an outpatient neurologist. 3. Watch for improvement if Kevin's paresis, especially since MRI negative for any acute stroke and echo negative on bubble study. 4. Should have 30 day event monitoring for occult PAF as outpatient." (3) CVA (cerebrovascular accident) Current Visit: Yes Status: Chronic Qualifiers: CVA mechanism: unspecified Qualified Code(s): I63.9 - Cerebral infarction, unspecified Plan to address problem: Old with L side residual weakness (4) HTN (hypertension) Current Visit: Yes Status: Acute Qualifiers: Hypertension type: essential hypertension Qualified Code(s): I10 - Essential (primary) hypertension Plan to address problem: Cont antihypertensives (5) HLD (hyperlipidemia) Current Visit: Yes Status: Chronic Qualifiers: Hyperlipidemia type: mixed hyperlipidemia Qualified Code(s): E78.2 - Mixed hyperlipidemia Plan to address problem: Cont statins Disposition: DC-01 TO HOME OR SELFCARE - Discharge Diagnoses (1) TIA (transient ischemic attack) Status: Acute (2) Seizure disorder Status: Acute (3) CVA (cerebrovascular accident) Status: Chronic Qualifiers: CVA mechanism: unspecified Qualified Code(s): I63.9 - Cerebral infarction, unspecified (4) HTN (hypertension) Status: Acute Qualifiers: Hypertension type: essential hypertension Qualified Code(s): I10 - Essential (primary) hypertension (5) HLD (hyperlipidemia) Status: Chronic Qualifiers: Hyperlipidemia type: mixed hyperlipidemia Qualified Code(s): E78.2 - Mixed hyperlipidemia (6) DVT prophylaxis Status: Acute Core Measure Documentation - Palliative Care Palliative Care/ Comfort Measures: Not Applicable - Core Measures Any of the following diagnoses?: none Exam - Constitutional Vitals: Temp Pulse Resp BP Pulse Ox 97.0 F L 68 20 147/80 97 12/24/18 17:44 12/24/18 17:44 12/24/18 17:44 12/24/18 17:44 12/24/18 17:44 General appearance: Present: no acute distress, well-nourished - EENT Eyes: Present: PERRL ENT: hearing intact, clear oral mucosa - Neck Neck: Present: supple, normal ROM - Respiratory Respiratory effort: normal Respiratory: bilateral: CTA - Cardiovascular Heart rate: 78 Rhythm: regular Heart Sounds: Present: S1 & S2. Absent: rub, click - Extremities Extremities: no ischemia, pulses intact, pulses symmetrical, No edema Peripheral Pulses: within normal limits - Abdominal General gastrointestinal: Present: soft, non-tender, non-distended, normal bowel sounds Male genitourinary: Present: normal - Integumentary Integumentary: Present: clear, warm, dry - Musculoskeletal Musculoskeletal: left sided weakness - Psychiatric Psychiatric: appropriate mood/affect, intact judgment & insight - Neurologic Neurologic: CNII-XII intact, focal deficits, moves all extremities - Allied Health Allied health notes reviewed: nursing, case management Plan Activity: no restrictions Diet: low fat, low cholesterol, low salt Follow up with: JIM STEPHEN MD [Staff Physician] - 7 Days HUAN SERRA MD [Staff Physician] - 7 Days
[2018-12-24 20:12] VITALS: BP 138/78
== END 2018-12-24 21:05 | disposition home or self-care (01) | DRG 62 ==
LOC: ED 12:16 → 4A 13:44 → 3A 12-24 11:27
PROVIDERS: ADMIT Internal Medicine; ATTEND Internal Medicine
DX: G45.9 Transient cerebral ischemic attack, unspecified (principal); I69.354 Hemiplegia and hemiparesis following cerebral infarction affecting left non-dominant side; G40.909 Epilepsy, unspecified, not intractable, without status epilepticus; I10 Essential (primary) hypertension; E78.2 Mixed hyperlipidemia; G83.84 Todd's paralysis (postepileptic); R47.1 Dysarthria and anarthria; Z82.49 Family history of ischemic heart disease and other diseases of the circulatory system
CPT/HCPCS: 36415; 70450; 70544; 70551; 71045; 80048; 80053; 80061; 81001; 83036; 84484; 85025; 85610; 85670; 85730; 93005; 93010; 93306; 93880; 95819; G0378; A9270-GY; J1650; J1953; J2997; J7030

== ENCOUNTER 2020-08-05 12:04 | Emergency (ER) | payer MEDICARE ==
--- NOTE | 2020-08-05 13:05 | Event Note ---
ED Screening Note Date of service: 08/05/20 ED Screening Note: Patient is brought in by caregiver for concern of seizure activity. It was reported the patient was having shaking and was unresponsive. Patient was recently seen here in November 2018 for concern for CVA. This initial assessment/diagnostic orders/clinical plan/treatment(s) is/are subject to change based on patients health status, clinical progression and re- assessment by fellow clinical providers in the ED. Further treatment and workup at subsequent clinical providers discretion. Patient/guardian urged not to elope from the ED as their condition may be serious if not clinically assessed and managed. Initial orders include:
[2020-08-05] MEDS ORDERED: levETIRAcetam 1000 MG/NS 0.75% 1,000 MG/100 ML BAG IV ONE ×3 (14:11→14:21)
[2020-08-05] MEDS ORDERED: levETIRAcetam 500 MG in DEXTROSE 5% IN WATER 100 ML IV ONE (14:11)
[2020-08-05] MEDS ORDERED: SODIUM CHLORIDE 0.9% 1000 ML 2,000 ML IV ONE (14:12)
--- NOTE | 2020-08-05 14:12 | Emergency Department Report ---
ED General Adult HPI - General Chief complaint: Seizure Stated complaint: POSSIBLE SEIZURE PUI?: No Time Seen by Provider: 08/05/20 13:56 Source: patient, family, RN notes reviewed, old records reviewed Mode of arrival: Wheelchair Limitations: Physical Limitation, Other - History of Present Illness Initial comments: The patient was evaluated in the emergency department for symptoms described in the history of present illness. He/she was evaluated in the context of the global COVID-19 pandemic, which necessitated consideration that the patient might be at risk for infection with the virus that causes COVID-19. Institution al protocols and algorithms that pertain to the evaluation of patients at risk for COVID-19 are in a state of rapid change based on information released by regulatory bodies including the CDC and federal and state organizations. These policies and algorithms were followed during the patient's care in the emergency department. Please note that these policies, procedures and recommendations changed on a rapid basis. The patient is a 54-year-old gentleman. I have evaluated this patient in the p ast. He has a history of hypertension, seizure, stroke with dysarthria, and microvascular ischemic changes. Patient was admitted to this hospital for seizure versus Kevin's paralysis versus TIA l in 2019. He had an MRI which demonstrated no acute ischemic findings. He had an EEG which did not demonstrate any epileptiform activity.. He is brought to the hospital today with his son. As per his son, the patient has an intolerance to chocolate and Sprite. The patient's son reports that the patient was with his home nurse, and he his usual state of health, when he consumed Sprite for unclear reasons. The patient's son states that the patient "does whatever he wants." After consuming the afor ementioned soda, the patient began to foam at the mouth, and may have had a convulsion. The patient and son do not know how long this lasted for. The patient did not have any antecedent or resultant trauma as per son. The patient is now currently awake. The patient's son indicates that the patie nt complained of left-sided abdominal pain and vomited once or twice. To the best of the son's recollection, no fever, no loss of taste or smell. Patient takes a number of medications, but patient and son do not know what medications he takes. The patient's son reports that the patient lives with his (the patient's) . The patient is now awake, and does not appear to be in any acute distress. -: Sudden Location: abdomen Radiation: other (Patient does not describe radiation) Quality: other (Patient does not describe the qualitative nature of the symptoms.) Consistency: now resolved Improves with: other (No exacerbating or relieving factors that son and/or family are aware of) - Related Data Home Medications Medication Instructions Recorded Confirmed Last Taken Pravastatin [Pravachol] 40 mg PO QHS 08/05/20 08/05/20 Unknown amLODIPine 2.5 mg PO DAILY 08/05/20 08/05/20 Unknown Previous Rx's Medication Instructions Recorded Last Taken Type Acetaminophen [Non-Aspirin Extra 500 mg PO Q6HR PRN #30 tablet 08/05/20 Unknown Rx Strength] Famotidine [Pepcid] 20 mg PO BID PRN #60 tablet 08/05/20 Unknown Rx Ondansetron [Zofran Odt] 4 mg PO Q8HR PRN #20 tab.rapdis 08/05/20 Unknown Rx levETIRAcetam [Keppra TAB] 1,500 mg PO BID #120 tablet 08/05/20 Unknown Rx Allergies Allergy/AdvReac Type Severity Reaction Status Date / Time No Known Allergies Allergy Unverified 12/22/18 12:19 ED Review of Systems ROS: Stated complaint: POSSIBLE SEIZURE Other details as noted in HPI Constitutional: denies: fever Respiratory: cough Cardiovascular: denies: chest pain Gastrointestinal: abdominal pain, nausea Genitourinary: denies: dysuria Neurological: weakness (Chronic weakness) ED Past Medical Hx - Past Medical History Previous Medical History?: Yes Hx Hypertension: Yes Hx CVA: Yes (left weakness) Hx Congestive Heart Failure: No Hx Diabetes: No Hx Seizures: Yes Hx Asthma: No Hx COPD: No - Social History Smoking Status: Never Smoker - Medications Home Medications: Home Medications Medication Instructions Recorded Confirmed Last Taken Type Acetaminophen [Non-Aspirin Extra 500 mg PO Q6HR PRN #30 tablet 08/05/20 Unknown Rx Strength] Famotidine [Pepcid] 20 mg PO BID PRN #60 tablet 08/05/20 Unknown Rx Ondansetron [Zofran Odt] 4 mg PO Q8HR PRN #20 tab.rapdis 08/05/20 Unknown Rx Pravastatin [Pravachol] 40 mg PO QHS 08/05/20 08/05/20 Unknown History amLODIPine 2.5 mg PO DAILY 08/05/20 08/05/20 Unknown History levETIRAcetam [Keppra TAB] 1,500 mg PO BID #120 tablet 08/05/20 Unknown Rx ED Physical Exam - General Limitations: Physical Limitation General appearance: alert, in no apparent distress - Head Head exam: Present: atraumatic, normocephalic - Eye Eye exam: Present: normal appearance, EOMI - ENT ENT exam: Present: mucous membranes moist, normal external ear exam (Patient has poor dentition) - Neck Neck exam: Present: normal inspection, full ROM. Absent: tenderness, meningismus - Respiratory Respiratory exam: Present: decreased breath sounds. Absent: respiratory distr ess, wheezes, rales, rhonchi, stridor - Cardiovascular Cardiovascular Exam: Present: normal rhythm, bradycardia, normal heart sounds. Absent: tachycardia, irregular rhythm, systolic murmur, diastolic murmur, rubs, gallop - GI/Abdominal GI/Abdominal exam: Present: soft, tenderness, other (There is a supraumbilical tenderness to deep palpation). Absent: distended, guarding, rebound, rigid, pulsatile mass - Rectal Rectal exam: Present: deferred - Extremities Exam Extremities exam: Present: normal inspection, full ROM, other (2+ pulses noted in the bilateral upper and lower extremities. There is no palpable cord. negative Homans sign. Muscular compartments are soft. The pelvis is stable.) - Back Exam Back exam: Present: normal inspection, full ROM. Absent: tenderness, CVA tenderness (R), CVA tenderness (L), paraspinal tenderness, vertebral tenderness - Neurological Exam Neurological exam: Present: other (The patient is awake. The patient is moving 4 extremities. Sensation is intact to light touch. The patient has chronic dysarthria. Patient son states that patient is at his neurologic and mental status baseline) - Psychiatric Psychiatric exam: Present: normal affect, normal mood - Skin Skin exam: Present: warm, dry, intact, normal color. Absent: rash ED Course Vital Signs 08/05/20 08/05/20 08/05/20 12:24 14:41 16:39 Temperature 97.8 F 98.9 F Pulse Rate 55 L 90 89 Respiratory 18 18 18 Rate Blood Pressure 85/46 130/70 Blood Pressure 155/82 [Left] O2 Sat by Pulse 96 94 97 Oximetry 08/05/20 08/05/20 17:29 18:24 Temperature Pulse Rate 89 101 H Respiratory 18 16 Rate Blood Pressure Blood Pressure 152/89 171/88 [Left] O2 Sat by Pulse 99 99 Oximetry - Reevaluation(s) Reevaluation #1: 08/05/20 14:25 Differential diagnosis, including but not limited to: Seizure, pseudoseizure, pneumonia, urinary tract infection, food intolerance, dehydration, obstruction, colitis, diverticulitis Assessment and plan: 54-year-old gentleman with history of convulsive event, then complaining of abdominal discomfort and nausea, now awake, protecting his airway, does not appear to be in any acute distress. We will start IV fluids, load patient with 2 g of Keppra, I have requested that son reconcile medicines for patient to make better recommendations. CT scan of the brain, CT scan of the abdomen pelvis, x-ray the chest, urinalysis, and EKG will be obtained. Of note, the patient is awake, and follows commands in the ER, and was able to take a cellular phone from his son, unlock it electronically, and search her contact information for his nurse and . This suggests that he has fairly high cortical functioning. He does not appear to be acutely confused. Reassess after initial data points. Reevaluation #2: 08/05/20 14:57 Additional history obtained from family and . Patient does not take any seizure medication at this time. Only medications are Norvasc, and atorvas tatin. Apparently, AED medication was discontinued by his primary care doctor, Dr. Wu Blood pressure improved. Patient awake, following commands, also corroborates that he is at baseline. Awaiting laboratory studies and diagnostic imaging at this time. Reevaluation #3: 08/05/20 15:28 Patient remains awake, alert, no acute distress, blood pressure acceptable. Laboratory studies are reviewed and are appreciated. Repeat glucose unremarkable. Urinalysis pending. Chest x-ray negative for acute findings. CT scan of the brain, urinalysis, CT scan of the abdomen pelvis pending. Care will be transferred to the oncoming ER physician, Dr. Mikael Agrawal, to follow-up on urinalysis, and CT scan results. If no acute findings noted, and patient has no further hypoglycemia, and does not have another convulsion, we would consider it appropriate for the patient to follow-up with an outpatient primary care doctor or neurologist. Patient does not take any diabetic medications as per his family. Repeat Accu-Chek was 74, dextrose will be ordered, patient will be fed after CT scan of the abdomen pelvis, assuming no acute surgical pathology. 08/05/20 15:47 - EJ/Peripheral Line Neck L Time Out Performed: Yes Indications: nurses unable to establis Skin Cleansed in Sterile Fashion: Yes Size: 20 Dressing Placed: Tegaderm Patient Tolerated Procedure: well ED Medical Decision Making - Lab Data Result diagrams: 08/05/20 14:33 08/05/20 14:33 Vital Signs 08/05/20 08/05/20 12:24 14:41 Temperature 97.8 F 98.9 F Pulse Rate 55 L 90 Respiratory 18 18 Rate Blood Pressure 85/46 130/70 O2 Sat by Pulse 96 94 Oximetry Lab Results 08/05/20 08/05/20 08/05/20 Range/Units 12:27 14:33 14:33 Hgb (11.8-15.2) gm/dl Hct (35.5-45.6) % Plt Count (140-440) K/mm3 PT 14.2 (12.2-14.9) Sec. INR 1.11 (0.87-1.13) Sodium 140 (137-145) mmol/L Potassium 4.1 (3.6-5.0) mmol/L Chloride 105.9 (98-107) mmol/L Carbon Dioxide 26 (22-30) mmol/L Anion Gap 12 mmol/L BUN 13 (9-20) mg/dL Creatinine 1.1 (0.8-1.3) mg/dL Estimated GFR > 60 ml/min BUN/Creatinine Ratio 12 % Glucose 95 (75-100) mg/dL POC Glucose 54 L (70-105) mg/dL Calcium 8.9 (8.4-10.2) mg/dL Magnesium (1.7-2.3) mg/dL Total Bilirubin 0.80 (0.1-1.2) mg/dL AST 27 (5-40) units/L ALT 27 (7-56) units/L Alkaline Phosphatase 107 (35-129) units/L Total Creatine Kinase (55-170) units/L Total Protein 7.6 (6.3-8.2) g/dL Albumin 4.1 (3.9-5) g/dL Albumin/Globulin Ratio 1.2 % Salicylates (2.8-20.0) mg/dL Acetaminophen (10.0-30.0) ug/mL Plasma/Serum Alcohol (0-0.07) % 08/05/20 08/05/20 08/05/20 Range/Units 14:33 14:33 14:33 Hgb (11.8-15.2) gm/dl Hct (35.5-45.6) % Plt Count (140-440) K/mm3 PT (12.2-14.9) Sec. INR (0.87-1.13) Sodium (137-145) mmol/L Potassium (3.6-5.0) mmol/L Chloride (98-107) mmol/L Carbon Dioxide (22-30) mmol/L Anion Gap mmol/L BUN (9-20) mg/dL Creatinine (0.8-1.3) mg/dL Estimated GFR ml/min BUN/Creatinine Ratio % Glucose (75-100) mg/dL POC Glucose (70-105) mg/dL Calcium (8.4-10.2) mg/dL Magnesium 2.00 (1.7-2.3) mg/dL Total Bilirubin (0.1-1.2) mg/dL AST (5-40) units/L ALT (7-56) units/L Alkaline Phosphatase (35-129) units/L Total Creatine Kinase 39 L (55-170) units/L Total Protein (6.3-8.2) g/dL Albumin (3.9-5) g/dL Albumin/Globulin Ratio % Salicylates < 0.3 L (2.8-20.0) mg/dL Acetaminophen 5.0 L (10.0-30.0) ug/mL Plasma/Serum Alcohol (0-0.07) % 08/05/20 08/05/20 Range/Units 14:33 14:33 Hgb 11.7 L (11.8-15.2) gm/dl Hct 36.7 (35.5-45.6) % Plt Count 215 (140-440) K/mm3 PT (12.2-14.9) Sec. INR (0.87-1.13) Sodium (137-145) mmol/L Potassium (3.6-5.0) mmol/L Chloride (98-107) mmol/L Carbon Dioxide (22-30) mmol/L Anion Gap mmol/L BUN (9-20) mg/dL Creatinine (0.8-1.3) mg/dL Estimated GFR ml/min BUN/Creatinine Ratio % Glucose (75-100) mg/dL POC Glucose (70-105) mg/dL Calcium (8.4-10.2) mg/dL Magnesium (1.7-2.3) mg/dL Total Bilirubin (0.1-1.2) mg/dL AST (5-40) units/L ALT (7-56) units/L Alkaline Phosphatase (35-129) units/L Total Creatine Kinase (55-170) units/L Total Protein (6.3-8.2) g/dL Albumin (3.9-5) g/dL Albumin/Globulin Ratio % Salicylates (2.8-20.0) mg/dL Acetaminophen (10.0-30.0) ug/mL Plasma/Serum Alcohol < 0.01 (0-0.07) % - EKG Data -: EKG Interpreted by [facility] EKG shows normal: sinus rhythm Rate: normal - EKG Data Interpretation: unchanged when compared t (Unchanged from November 2018) 08/05/20 15:27 Sinus rhythm, 82 bpm. Left axis deviation, left anterior fascicular block. Borderline left ventricular hypertrophy, poor R wave progression, lateral T wave abnormality. Abnormal EKG. Not a STEMI. - Radiology Data Radiology results: pending, report reviewed, image reviewed CHEST 1 VIEW 08/05/2020 2:35 PM INDICATION / CLINICAL INFORMATION: seizure unresonsive. COMPARISON: None available. FINDINGS: SUPPORT DEVICES: None. HEART / MEDIASTINUM: No significant abnormality. LUNGS / PLEURA: No significant pulmonary or pleural abnormality. No pneumothorax. ADDITIONAL FINDINGS: No significant additional findings. IMPRESSION: No acute cardiopulmonary abnormality. Signer Name: Demetrio Robison MD Signed: 08/05/2020 1:44 PM Workstation Name: [id number] Noncontrast [address] scan of the brain, CT scan of the abdomen pelvis negative for acute findings, prominent stool burden noted on CT scan of the abdomen pelvis. Critical care attestation.: If time is entered above; I have spent that time in minutes in the direct care of this critically ill patient, excluding procedure time. ED Disposition Clinical Impression: History of convulsions, Abdominal pain, History of hypoglycemia Disposition: DC-01 TO HOME OR SELFCARE Is pt being admited?: No Does the pt Need Aspirin: No Condition: Good Instructions: Hypoglycemia, Abdominal Pain, Adult, [id number], Seizure, Adult Additional Instructions: Do not drive or operate motor vehicles for the next 6 months, until cleared to do so by a primary care doctor or neurologist. Recommend follow-up with a primary care doctor or neurologist within the next week. Do not consume chocolate or soda/Sprite. Take the pain medications as needed, nausea medications as needed. Minimize/avoid consumption of Motrin, ibuprofen, Naprosyn, Aleve, heavy and spicy foods. Please return to the emergency room right away with new pain, worsened pain, migration of pain, projectile vomiting, change in mental status, confusion, inab ility to tolerate liquid feeds, new, worsened or different symptoms not present on the initial emergency room evaluation. Prescriptions: levETIRAcetam [Keppra TAB] 1,500 mg PO BID #120 tablet Acetaminophen [Non-Aspirin Extra Strength] 500 mg PO Q6HR PRN #30 tablet PRN Reason: Pain , Severe (7-10) Famotidine [Pepcid] 20 mg PO BID PRN #60 tablet PRN Reason: Pain , Severe (7-10) Ondansetron [Zofran Odt] 4 mg PO Q8HR PRN #20 tab.rapdis PRN Reason: Nausea Referrals: NICOLAS KRISHNA MD [Referring] - 3-5 Days MELIDA MYERS MD [Staff Physician] - 3-5 Days BRIAN HULL MD [Staff Physician] - 3-5 Days SEBASTIEN HI MD [Referring] - 3-5 Days
--- NOTE | 2020-08-05 14:49 | XRay Report ---
CHEST 1 VIEW 08/05/2020 2:35 PM INDICATION / CLINICAL INFORMATION: seizure unresonsive. COMPARISON: None available. FINDINGS: SUPPORT DEVICES: None. HEART / MEDIASTINUM: No significant abnormality. LUNGS / PLEURA: No significant pulmonary or pleural abnormality. No pneumothorax. ADDITIONAL FINDINGS: No significant additional findings. IMPRESSION: No acute cardiopulmonary abnormality. Signer Name: Demetrio Robison MD Signed: 08/05/2020 2:44 PM Workstation Name: [id number]
[2020-08-05 14:55] LABS: Hematocrit 36.7 % (35.5-45.6); Hemoglobin 11.7 gm/dl (11.8-15.2)
[2020-08-05 15:07] LABS: INR 1.11 (0.87-1.13)
[2020-08-05 15:18] LABS: Alanine Aminotransferase 27 units/L (7-56); Albumin 4.1 g/dL (3.9-5); BUN/Creatinine Ratio 12; Blood Urea Nitrogen 13 mg/dL (9-20); Calcium 8.9 mg/dL (8.4-10.2); Hemolysis Index 7
[2020-08-05] MEDS ORDERED: ACETAMINOPHEN 325 MG/10.15 ML ORAL LIQD UNIT DOSE PO ONE (15:26)
[2020-08-05] MEDS ORDERED: DEXTROSE 50% IN WATER (25GM) 50 ML VIAL IV PRN (15:26)
[2020-08-05] MEDS ORDERED: FAMOTIDINE 20 MG/2 ML INJ IV ONE (15:26)
[2020-08-05] MEDS ORDERED: DEXTROSE 50% IN WATER (25GM) 50 ML SYRINGE IV PRN (16:26)
--- NOTE | 2020-08-05 16:33 | Cat Scan Report ---
CT head/brain wo con INDICATION: Questionable seizure with upper arm weakness. TECHNIQUE: Routine CT head without contrast. All CT scans at this location are performed using CT dos e reduction for ALARA by means of automated exposure control. COMPARISON: Brain MRI on 12/23/2018 and PET/CT on 12/22/2018 FINDINGS: BRAIN / INTRACRANIAL CONTENTS: No acute hemorrhage, mass effect, midline shift, or hydrocephalus. No appreciable acute large territorial or lacunar infarct. There is stable severe confluent chronic smal l vessel ischemic change in the cerebral white matter as well as multifocal chronic lacunar infarcts in the celestin radiata. ORBITS: No significant abnormality of visualized orbits. SINUSES / MASTOIDS: No significant abnormality of visualized sinuses and mastoid air cells. ADDITIONAL FINDINGS: None. IMPRESSION: 1. No acute findings. 2. Stable severe chronic small vessel ischemic change in the cerebral white matter. Signer Name: Neil Vasquez MD Signed: 08/05/2020 4:28 PM Workstation Name: [id number]
[2020-08-05 16:45] LABS: Bacteria,Urine 4+ /HPF (Negative); Bilirubin,Urine NEG (Negative); Blood,Urine NEG (Negative); Color,Urine Yellow (Yellow); Mucus,Urine FEW /HPF; Protein,Urine <15 mg/dL mg/dL (Negative)
--- NOTE | 2020-08-05 16:49 | Cat Scan Report ---
CT ABDOMEN AND PELVIS WITHOUT CONTRAST INDICATION / CLINICAL INFORMATION: acute abd pain n/v. TECHNIQUE: Axial CT images were obtained through the abdomen and pelvis without IV contrast. All CT scans at [facility] location are performed using CT dose reduction for ALARA by means of automated exposure control. COMPARISON: None available. FINDINGS: LOWER CHEST: No significant abnormality. LIVER: No significant abnormality. GALLBLADDER: No significant abnormality. PANCREAS: No significant abnormality. SPLEEN: No significant abnormality. ADRENALS: No significant abnormality. KIDNEYS / URETERS: No significant abnormality. URINARY BLADDER: No significant abnormality. REPRODUCTIVE ORGANS: No significant abnormality. STOMACH / SMALL BOWEL: No significant abnormality. COLON: Large rectal stool burden. APPENDIX: No significant abnormality. PERITONEUM: No free fluid. No free air. No fluid collection. LYMPH NODES: No significant adenopathy. AORTA / ARTERIES: Mild atherosclerotic calcification without acute abnormality. IVC / VEINS: No significant abnormality. SKELETAL SYSTEM: No significant abnormality. ADDITIONAL FINDINGS: None. IMPRESSION: 1. No acute abdominopelvic abnormality. 2. Large rectal stool burden. Signer Name: Demetrio Robison MD Signed: 08/05/2020 4:45 PM Workstation Name: [id number]
[2020-08-05 18:29] VITALS: BP 171/88
== END 2020-08-05 18:50 | disposition home or self-care (01) ==
LOC: ED 12:04
DX: E16.2 Hypoglycemia, unspecified (principal); R56.9 Unspecified convulsions; R10.9 Unspecified abdominal pain; I10 Essential (primary) hypertension; Z86.73 Personal history of transient ischemic attack (TIA), and cerebral infarction without residual deficits; Z79.899 Other long term (current) drug therapy
CPT/HCPCS: 36415; 36556; 70450; 71045; 74176; 80053; 81001; 82550; 82962; 83735; 85014; 85018; 85049; 85610; 93005; 96365; 96375; 99285; J1953; J7030; 80320; G0480

== ENCOUNTER 2021-02-25 16:24 | Inpatient (IN) | payer MEDICARE ==
--- NOTE | 2021-02-25 16:33 | Emergency Department Report ---
ED Neuro Deficit HPI - General Stated Complaint: POSS STROKE Time Seen by Provider: 02/25/21 16:25 Source: patient, family, EMS, old records reviewed Mode of arrival: Stretcher Limitations: Altered Mental Status - History of Present Illness Initial Comments: Chief complaint: "He was not responding." HPI: This is a 55-year-old male with history of CVA with residual left-sided h emiparesis, dysarthria, seizure disorder, hypertension, hyperlipidemia who presents with unresponsive episode. I spoke with per phone at phone #[phone]. noticed after waking up from a nap he was trembling. He had episode of vomiting. He felt warm to touch. He was unable to get out of bed on his own. For a moment, patient was not responsive. He was not as verbal. He has slurred speech at baseline. He was confused more so than at baseline. He stated that the year was 2019. He did not know the name of the president. At baseline patient is able to ambulate with a walking aid. Patient previously was on anticoagulation. said that the coagulation was discontinued. According to electronic medical review, patient was admitted to this hospital for TIA November 2018. I reviewed EKG obtained per EMS. Sinus tachycardia rate 100 bpm left axis deviation prolonged QTC nonspecific T wave pattern no ST elevation Upon reevaluation after 2 hours observation emergency department, patient states that "I feel good now. My stomach was hurting." -: Sudden (Patient awakened from nap at 1 PM) Location: altered Place: home Severity: mild Improves With: none Worsens With: none On Anticoagulants: No Context: sudden onset Associated Symptoms: other ( reported warm to touch, tremors, vomiting) - Related Data Home Medications: Home Medications Medication Instructions Recorded Confirmed Last Taken Pravastatin [Pravachol] 40 mg PO QHS 08/05/20 02/25/21 Unknown amLODIPine 2.5 mg PO DAILY 08/05/20 02/25/21 Unknown Previous Rx's Medication Instructions Recorded Last Taken Type Acetaminophen [Non-Aspirin Extra 500 mg PO Q6HR PRN #30 tablet 08/05/20 Unknown Rx Strength] Famotidine [Pepcid] 20 mg PO BID PRN #60 tablet 08/05/20 Unknown Rx Ondansetron [Zofran Odt] 4 mg PO Q8HR PRN #20 tab.rapdis 08/05/20 Unknown Rx levETIRAcetam [Keppra TAB] 1,500 mg PO BID #120 tablet 08/05/20 Unknown Rx Allergies/Adverse Reactions: Allergies Allergy/AdvReac Type Severity Reaction Status Date / Time No Known Allergies Allergy Unverified 12/22/18 12:19 ED Review of Systems ROS: Stated complaint: POSS STROKE Other details as noted in HPI Comment: Unobtainable due to pts medical conditions (Confusion unable to obtain) ED Past Medical Hx - Past Medical History Previous Medical History?: Yes Hx Hypertension: Yes Hx CVA: Yes (left weakness) Hx Congestive Heart Failure: No Hx Diabetes: No Hx Seizures: Yes Hx Asthma: No Hx COPD: No - Surgical History Past Surgical History?: No - Family History Family history: hypertension - Social History Smoking Status: Never Smoker Substance Use Type: None - Medications Home Medications: Home Medications Medication Instructions Recorded Confirmed Last Taken Type Acetaminophen [Non-Aspirin Extra 500 mg PO Q6HR PRN #30 tablet 08/05/20 02/25/21 Unknown Rx Strength] Famotidine [Pepcid] 20 mg PO BID PRN #60 tablet 08/05/20 02/25/21 Unknown Rx Ondansetron [Zofran Odt] 4 mg PO Q8HR PRN #20 tab.rapdis 08/05/20 02/25/21 Unknown Rx Pravastatin [Pravachol] 40 mg PO QHS 08/05/20 02/25/21 Unknown History amLODIPine 2.5 mg PO DAILY 08/05/20 02/25/21 Unknown History levETIRAcetam [Keppra TAB] 1,500 mg PO BID #120 tablet 08/05/20 02/25/21 Unknown Rx ED Neuro Physical Exam - General Limitations: Language Barrier, Altered Mental Status General appearance: alert, in no apparent distress Suspected Stroke: Yes - Head Head exam: Present: atraumatic, normocephalic - Eye Eye exam: Present: normal appearance - ENT ENT exam: Present: mucous membranes moist - Neck Neck exam: Present: normal inspection, full ROM - Respiratory Respiratory exam: Present: normal lung sounds bilaterally. Absent: respiratory distress, wheezes, rales, rhonchi - Cardiovascular Cardiovascular Exam: Present: regular rate, normal rhythm, normal heart sounds. Absent: systolic murmur, diastolic murmur, rubs, gallop - GI/Abdominal GI/Abdominal exam: Present: soft. Absent: distended, tenderness, guarding, rebound - Extremities Exam Extremities exam: Present: normal inspection - Back Exam Back exam: Present: normal inspection - Neurological Exam Neurological exam: Present: alert, altered, other (Oriented to name only) - NIHSS Assessment Interval: Baseline 1a. Level of Consciousness: alert/keenly responsive 1b. LOC Questions: answers 1 question correctly 1c. LOC Commands: performs tasks correctly 2. Best Gaze: normal 3. Visual: no visual loss 4. Facial Palsy: normal symmetrical movement 5b. Motor Arm Right: no drift 5a. Motor Arm Left: drift 6a. Motor Leg Left: drift 6b. Motor Leg Right: no drift 7. Limb Ataxia: present 1 limb 8. Sensory: normal 9. Best Language: mild/moderate aphasia 10. Dysarthria: mild/moderate dysarthria 11. Extinction/Inattention: no abnormality Total Score: 6 Stroke Severity: Moderate Stroke - Psychiatric Psychiatric exam: Present: depressed, flat affect - Skin Skin exam: Present: warm, dry, intact, normal color. Absent: rash ED Course Vital Signs 02/25/21 02/25/21 02/25/21 18:01 19:01 19:15 Pulse Rate 99 H 99 H Respiratory 18 20 19 Rate Blood Pressure 137/77 123/70 O2 Sat by Pulse 99 96 95 Oximetry 02/25/21 02/25/21 02/25/21 19:30 19:45 20:01 Pulse Rate 94 H 98 H 94 H Respiratory 20 17 18 Rate Blood Pressure 123/70 137/73 140/66 O2 Sat by Pulse 96 97 96 Oximetry 02/25/21 02/25/21 20:15 20:22 Pulse Rate 94 H Respiratory 18 Rate Blood Pressure 120/52 O2 Sat by Pulse 98 100 Oximetry - Consultations Consultation #1: 02/25/21 16:58 I spoke directly with radiologist. He gave verbal report of advance microvascular white matter changes as well as remote basal ganglia infarcts, no evidence of acute hemorrhage or recent infarct - Lab Data Result diagrams: 02/25/21 17:22 02/25/21 17:22 Lab Results 02/25/21 02/25/21 02/25/21 Range/Units 17:22 17:22 17:22 WBC 11.9 H (4.5-11.0) K/mm3 RBC 5.05 H (3.65-5.03) M/mm3 Hgb 12.3 (11.8-15.2) gm/dl Hct 38.7 (35.5-45.6) % MCV 77 L (84-94) fl MCH 24 L (28-32) pg MCHC 32 (32-34) % RDW 15.8 H (13.2-15.2) % Plt Count 206 (140-440) K/mm3 Add Manual Diff Complete Total Counted 100 Seg Neutrophils % Agronomy Technician Seg Neuts % (Manual) 87.0 H (40.0-70.0) % Lymphocytes % (Manual) 9.0 L (13.4-35.0) % Monocytes % (Manual) 4.0 (0.0-7.3) % Nucleated RBC % Not Reportable Seg Neutrophils # Man 10.4 H (1.8-7.7) K/mm3 Band Neutrophils # 0.0 K/mm3 Lymphocytes # (Manual) 1.1 L (1.2-5.4) K/mm3 Abs React Lymphs (Man) 0.0 K/mm3 Monocytes # (Manual) 0.5 (0.0-0.8) K/mm3 Eosinophils # (Manual) 0.0 (0.0-0.4) K/mm3 Basophils # (Manual) 0.0 (0.0-0.1) K/mm3 Metamyelocytes # 0.0 K/mm3 Myelocytes # 0.0 K/mm3 Promyelocytes # 0.0 K/mm3 Blast Cells # 0.0 K/mm3 WBC Morphology Not Reportable Hypersegmented Neuts Not Reportable Hyposegmented Neuts Not Reportable Hypogranular Neuts Not Reportable Smudge Cells Not Reportable Toxic Granulation Not Reportable Toxic Vacuolation Not Reportable Dohle Bodies Not Reportable Pelger-Huet Anomaly Not Reportable Mony Rods Not Reportable Platelet Estimate Not Reportable Clumped Platelets Not Reportable Plt Clumps, EDTA Not Reportable Large Platelets Not Reportable Giant Platelets Not Reportable Platelet Satelliting Not Reportable Plt Morphology Comment Not Reportable RBC Morphology Not Reportable Dimorphic RBCs Not Reportable Polychromasia Not Reportable Hypochromasia 1+ Poikilocytosis Not Reportable Anisocytosis Few Microcytosis Not Reportable Macrocytosis Not Reportable Spherocytes Not Reportable Pappenheimer Bodies Not Reportable Sickle Cells Not Reportable Target Cells Not Reportable Tear Drop Cells Not Reportable Ovalocytes Not Reportable Helmet Cells Not Reportable [place] Bodies Not Reportable Harman Rings Not Reportable Marii Cells Not Reportable Bite Cells Not Reportable Crenated Cell Not Reportable Elliptocytes Not Reportable Acanthocytes (Spur) Not Reportable Rouleaux Not Reportable Hemoglobin C Crystals Not Reportable Schistocytes Not Reportable Malaria parasites Not Reportable Chu Bodies Not Reportable Hem Pathologist Commnt No PT 15.5 H (12.2-14.9) Sec. INR 1.17 H (0.87-1.13) APTT 33.2 (24.2-36.6) Sec. Thrombin Time 17.3 (15.1-19.6) Sec. Sodium 136 L (137-145) mmol/L Potassium 3.7 (3.6-5.0) mmol/L Chloride 101.6 (98-107) mmol/L Carbon Dioxide 22 (22-30) mmol/L Anion Gap 16 mmol/L BUN 16 (9-20) mg/dL Creatinine 0.9 (0.8-1.3) mg/dL Estimated GFR > 60 ml/min BUN/Creatinine Ratio 18 % Glucose 70 L (75-100) mg/dL Calcium 9.1 (8.4-10.2) mg/dL Total Bilirubin 1.10 (0.1-1.2) mg/dL AST 24 (5-40) units/L ALT 24 (7-56) units/L Alkaline Phosphatase 107 (35-129) units/L Troponin T < 0.010 (0.00-0.029) ng/mL Total Protein 7.3 (6.3-8.2) g/dL Albumin 3.8 L (3.9-5) g/dL Albumin/Globulin Ratio 1.1 % Plasma/Serum Alcohol (0-0.07) % 02/25/21 Range/Units 17:22 WBC (4.5-11.0) K/mm3 RBC (3.65-5.03) M/mm3 Hgb (11.8-15.2) gm/dl Hct (35.5-45.6) % MCV (84-94) fl MCH (28-32) pg MCHC (32-34) % RDW (13.2-15.2) % Plt Count (140-440) K/mm3 Add Manual Diff Total Counted Seg Neutrophils % Seg Neuts % (Manual) (40.0-70.0) % Lymphocytes % (Manual) (13.4-35.0) % Monocytes % (Manual) (0.0-7.3) % Nucleated RBC % Seg Neutrophils # Man (1.8-7.7) K/mm3 Band Neutrophils # K/mm3 Lymphocytes # (Manual) (1.2-5.4) K/mm3 Abs React Lymphs (Man) K/mm3 Monocytes # (Manual) (0.0-0.8) K/mm3 Eosinophils # (Manual) (0.0-0.4) K/mm3 Basophils # (Manual) (0.0-0.1) K/mm3 Metamyelocytes # K/mm3 Myelocytes # K/mm3 Promyelocytes # K/mm3 Blast Cells # K/mm3 WBC Morphology Hypersegmented Neuts Hyposegmented Neuts Hypogranular Neuts Smudge Cells Toxic Granulation Toxic Vacuolation Dohle Bodies Pelger-Huet Anomaly Mony Rods Platelet Estimate Clumped Platelets Plt Clumps, EDTA Large Platelets Giant Platelets Platelet Satelliting Plt Morphology Comment RBC Morphology Dimorphic RBCs Polychromasia Hypochromasia Poikilocytosis Anisocytosis Microcytosis Macrocytosis Spherocytes Pappenheimer Bodies Sickle Cells Target Cells Tear Drop Cells Ovalocytes Helmet Cells [place] Bodies Harman Rings [place] Cells Bite Cells Crenated Cell Elliptocytes Acanthocytes (Spur) Rouleaux Hemoglobin C Crystals Schistocytes Malaria parasites Chu Bodies Hem Pathologist Commnt PT (12.2-14.9) Sec. INR (0.87-1.13) APTT (24.2-36.6) Sec. Thrombin Time (15.1-19.6) Sec. Sodium (137-145) mmol/L Potassium (3.6-5.0) mmol/L Chloride (98-107) mmol/L Carbon Dioxide (22-30) mmol/L Anion Gap mmol/L BUN (9-20) mg/dL Creatinine (0.8-1.3) mg/dL Estimated GFR ml/min BUN/Creatinine Ratio % Glucose (75-100) mg/dL Calcium (8.4-10.2) mg/dL Total Bilirubin (0.1-1.2) mg/dL AST (5-40) units/L ALT (7-56) units/L Alkaline Phosphatase (35-129) units/L Troponin T (0.00-0.029) ng/mL Total Protein (6.3-8.2) g/dL Albumin (3.9-5) g/dL Albumin/Globulin Ratio % Plasma/Serum Alcohol < 0.01 (0-0.07) % - EKG Data -: EKG Interpreted by Me EKG shows normal: sinus rhythm, axis, intervals Rate: normal 02/25/21 20:11 ekg obtained 2006 ekg interpreted by me rate 95 bpm nl axis nl qtc prolonged pr +LVH no ST elevation nonischemic t wave patternsx - Radiology Data Radiology results: report reviewed Patient Name: ADOLFO VINCENT Gender: Male Date of : 1965 Referring Provider: CYNTHIA NEFF Organization: [facility] Accession Number: [id number] Requested Date: February 25, 2021 18:32 Report Status: Final Requested Procedure: 1 Procedure Description: CT abdomen pelvis wo con Modality: CT Findings Reporting MD: Jason Handy Dictation Time: February 25, 2021 19:10 Social Work Msw: Not available Skein Bleacher Date: CT ABDOMEN AND PELVIS WITHOUT CONTRAST INDICATION: Pt complains of abdominal pain and vomiting.. TECHNIQUE: Axial CT images were obtained through the abdomen and pelvis without IV contr ast. All CT scans at this location are performed using CT dose reduction for ALARA by means of automated exposure control. COMPARISON: CT abdomen pelvis 08/05/2020 FINDINGS: LOWER CHEST: No significant abnormality. LIVER: No significant abnormality. GALLBLADDER: No significant abnormality. BILE DUCTS: No significant abnormality. PANCREAS: No significant abnormality. SPLEEN: No significant abnormality. ADRENALS: No significant abnormality. RIGHT KIDNEY and URETER: Contrast right renal collecting system from recent head and neck CTA LEFT KIDNEY and URETER: Contrast left renal collecting system. Small 1.7 cm simple left upper pole renal cyst again noted. STOMACH and SMALL BOWEL: No significant abnormality. COLON: Mild sigmoid diverticulosis. Moderate constipation. APPENDIX: Normal. PERITONEUM: No free fluid. No free air. No fluid collection. LYMPH NODES: No significant adenopathy. AORTA and ARTERIES: No significant abnormality. IVC and VEINS: No significant abnormality. URINARY BLADDER: Contrast noted within urinary bladder which is unremarkable. REPRODUCTIVE ORGANS: No significant abnormality. ADDITIONAL FINDINGS: None. SKELETAL SYSTEM: No significant abnormality. IMPRESSION: 1. No significant abnormality Patient Name: ADOLFO VINCENT Gender: Male Date of : 1965 Referring Provider: CYNTHIA NEFF Organization: [facility] Accession Number: [id number] Requested Date: February 25, 2021 16:26 Report Status: Final Requested Procedure: 1 Procedure Description: XR chest 1V ap Modality: XR Findings Reporting MD: Marvin Collins Dictation Time: February 25, 2021 16:33 Social Work Msw: Not available Skein Bleacher Date: CHEST 1 VIEW 02/25/2021 5:17 PM INDICATION / CLINICAL INFORMATION: stroke symptoms. Speech disturbance. Code stroke. COMPARISON: 08/05/20 FINDINGS: SUPPORT DEVICES: None. HEART / MEDIASTINUM: No significant abnormality. LUNGS / PLEURA: No significant pulmonary or pleural abnormality. No pneumothorax. ADDITIONAL FINDINGS: No significant additional findings. IMPRESSION: 1. No acute findings. No change. Patient Name: ADOLFO VINCENT Gender: Male Date of : 1965 Referring Provider: CYNTHIA NEFF Organization: [facility] Accession Number: [id number] Requested Date: February 25, 2021 17:02 Report Status: Final Requested Procedure: 1 Procedure Description: CT angio head Modality: CT Findings Reporting MD: Rigo Marshall Dictation Time: February 25, 2021 16:36 Social Work Msw: Not available Skein Bleacher Date: CTA head with intravenous contrast CLINICAL HISTORY: Post-CODE STROKE PROTOCOL, Hx of prior stroke(s) TECHNIQUE: 0.625 mm thick contiguous axial scans were obtained from the skull base to the skull vertex during rapid bolus administration of intravenous contrast material. Multiplanar reconstructions were produced in the coronal and sagittal planes. In addition 3 plane MIP instructions were produced and reviewed for this report. The axial source images and reconstructed images were reviewed for this report. CONTRAST DOSE REPORT: Omnipaque 350: 100 ml administered intravenously. All CT scans at this location are performed using CT dose reduction for ALARA by means of automated exposure control. FINDINGS: Internal carotid arteries: Calcified atherosclerotic plaque is seen along the course the cavernous segments of both internal carotid arteries without associated hemodynamically significant stenosis. Middle cerebral arteries:Normal and symmetrical M1 segments of the middle cerebral arteries are demonstrated. No abnormalities are seen on evaluation of the insular or opercular branches. Anterior cerebral arteries:Bilaterally symmetrical A1 segments are demonstrated. No abnormalities are seen along the course of the A2 segments or their visualized pericallosal branches. An intact anterior communicating artery is visualized. Vertebral arteries:Bilaterally symmetrical vertebral arteries are demonstrated. Both vertebral arteries contribute to the basilar artery origin. Basilar artery:Basilar artery has an unremarkable appearance. Posterior cerebral arteries:Bilaterally symmetrical posterior cerebral arteries are identified. Bilateral posterior communicating arteries are identified. Dural sinuses: Dural venous sinuses are well demonstrated on this exam. There is no evidence of dural sinus thrombosis. IMPRESSION: 1. No indication of large vessel occlusion or significant intercranial stenosis Patient Name: ADOLFO VINCENT Gender: Male Date of : 1965 Referring Provider: CYNTHIA NEFF Organization: [facility] Accession Number: [id number] Requested Date: February 25, 2021 17:02 Report Status: Final Requested Procedure: 1 Procedure Description: CT angio neck Modality: CT Findings Reporting MD: Rigo Marshall Dictation Time: February 25, 2021 16:32 Social Work Msw: Not available Skein Bleacher Date: CTA neck without and with intravenous contrast material CLINICAL HISTORY: Cerebrovascular accident. Difficulty speaking. TECHNIQUE: Following acquisition of a timing bolus 0.625 mm thick contiguous axial scans w ere obtained from aortic arch to the skull base during rapid bolus intravenous contrast infusion. In addition to evaluation of axial source images multiplanar reconstructions were produced and reviewed for this report. 3 plane MIP reconstructions were produced and reviewed. Contrast dose report: Omnipaque 350: 100 ml, administered intravenously All CT examinations performed at this facility utilize modulated dose reduction, iterative reconstruction or weight-based dosing, as appropriate, to obtain a radiation dose which is as low as can reasonably be achieved. FINDINGS: Thoracic aorta:No abnormalities are identified along the course of the thoracic aorta..The origins of the great vessels have an unremarkable appearance. Brachiocephalic artery, left common carotid artery origin and left subclavian artery all have an unremarkable appearance. Right carotid artery: Calcified atherosclerotic plaque is observed at the right carotid bulb extending up into the proximal R ICA. There is no associated stenosis. Left carotid artery: No abnormalities are noted along the course of the left common carotid artery, at the left carotid bifurcation or along the course of the cervical segments of the LICA. Posterior circulation:The vertebral arteries have an unremarkable appearance. Both vertebral arteries contribute to the basilar artery origin. The basilar artery has an unremarkable appearance. The degree of stenosis, if any, is determined utilizing NASCET like criteria. In this case there is no indication of hemodynamically significant stenosis at the carotid bifurcations or elsewhere. Evaluation of the nonvascular soft tissue structures reveal no abnormality. There is no indication of cervical lymphadenopathy. No abnormalities are seen along the course of the airway. Visualized portions of the parotid glands and the submandibular salivary glands have a normal appearance. Thyroid gland has a normal appearance. Evaluation of the lung apices reveals no evidence of lung nodule or infiltrate. Evaluation of the cervical spine is remarkable for mild cervical spondylosis without evidence of central canal stenosis. Severe bilateral foraminal stenosis is present at the C5-6 level. [facility] [address] [place] [address] P [phone] F [phone] [facility] - Report exported on SatFeb 25, 2021 19:27:54 -[id number] - Page 2 of 2 IMPRESSION: 1. No indication of hemodynamically significant stenosis at the carotid bifurcations or elsewhere. Patient Name: ADOLFO VINCENT Gender: Male Date of : 1965 Referring Provider: CYNTHIA NEFF Organization: [facility] Accession Number: [id number] Requested Date: February 25, 2021 16:39 Report Status: Final Requested Procedure: 1 Procedure Description: CT head/brain wo con Modality: CT Findings Reporting MD: Rigo Marshall Dictation Time: February 25, 2021 15:58 Social Work Msw: Not available Skein Bleacher Date: CT HEAD WITHOUT CONTRAST INDICATION / CLINICAL INFORMATION: Cerebrovascular accident. Speech disturbance. Code stroke. TECHNIQUE: All CT scans at this location are performed using CT dose reduction for ALARA by means of automated exposure control. COMPARISON: Head CT dated 08/05/2020 and MRI brain 620 11/17/2018 FINDINGS: HEMORRHAGE: No evidence of recent intracranial hemorrhage or extra-axial fluid collection. EXTRA-AXIAL SPACES: Cortical sulci and sylvian fissures are enlarged reflecting a degree of parenchymal volume loss which is greater than expected for the patient's age of 55 years. Basilar cisterns have an unremarkable appearance. VENTRICULAR SYSTEM: The third and lateral ventricles are enlarged reflecting presence of age related parenchymal volume loss. CEREBRAL PARENCHYMA: Extensive periventricular, subcortical and deep white matter lucency is observed. This is probably secondary to advanced microvascular ischemic change. There is no indication of recent infarction. There is evidence of remote small deep infarctions capsular distribution. MIDLINE SHIFT OR HERNIATION: There is no mass effect. CEREBELLUM / BRAINSTEM: Brainstem has an unremarkable appearance. Age related cerebellar atrophy is noted. MIDLINE STRUCTURES:Pituitary gland has an unremarkable appearance. No abnormalities are seen in the pineal region. INTRACRANIAL VESSELS:Calcified atherosclerotic plaque is present along the course of the cavernous segments of both internal carotid arteries. Similar findings are seen at the distal vertebral arteries. ORBITS: visualized portions of the orbits have an unremarkable appearance. SOFT TISSUES of HEAD: No significant abnormality. CALVARIUM: Evaluation of bone windows reveals no abnormalities. PARANASAL SINUSES / MASTOID AIR CELLS: Paranasal sinuses are free from inflammatory mucosal disease. Mastoid air cells are normally pneumatized. ADDITIONAL FINDINGS: None. IMPRESSION: 1. Advanced microvascular ischemic change. 2. Evidence of remote bilateral gangliocapsular infarctions. 3. No acute abnormalities are identified. No significant interval change. - Medical Decision Making 1. TIA: Patient had mild confusion and speech hesitation on my initial exam. After 2 hours observation patient is at his baseline. He states that "I feel good now. My stomach was hurting." 2. Abdominal pain: 2. Abdominal Pain: patient is poor historian. reported vomiting. CT A/P obtained. No acute inflammatort/obstructive process. Patient admitted to hospitalist service - Thrombolytic Inclusion/Exclusion Thrombolytic Contraindications: Rapidily Improving s/s Critical Care Time: Yes Critical care time in (mins) excluding proc time.: 40 Critical care attestation.: If time is entered above; I have spent that time in minutes in the direct care of this critically ill patient, excluding procedure time. 40 minutes of critical care time excluding procedures were used in the care of the patient. I came immediately to the bedside upon patient's arrival. I obtained history from EMS at the bedside. I discussed treatment plan with the nursing team members. I reviewed electronic record. I kept the family member informed. Patient required multiple interventions and reassessments. Upon patient's arrival I spoke immediately with EMS at the entrance to the emergency department. I spoke with charge nurse. I requested code stroke activation. I spoke with to obtain history. I spoke with neurologist and radiologist to coordinate care. ED Disposition Clinical Impression: TIA (transient ischemic attack) Disposition: ADMITTED INPATIENT Is pt being admited?: Yes Does the pt Need Aspirin: No Condition: Stable
--- NOTE | 2021-02-25 17:03 | Cat Scan Report ---
CT HEAD WITHOUT CONTRAST INDICATION / CLINICAL INFORMATION: Cerebrovascular accident. Speech disturbance. Code stroke. TECHNIQUE: All CT scans at this location are performed using CT dose reduction for ALARA by means of automated e xposure control. COMPARISON: Head CT dated 08/05/2020 and MRI brain 620 11/17/2018 FINDINGS: HEMORRHAGE: No evidence of recent intracranial hemorrhage or extra-axial fluid collection. EXTRA-AXIAL SPACES: Cortical sulci and sylvian fissures are enlarged reflecting a degree of parenchym al volume loss which is greater than expected for the patient's age of 55 years. Basilar cisterns hav e an unremarkable appearance. VENTRICULAR SYSTEM: The third and lateral ventricles are enlarged reflecting presence of age related parenchymal volume loss. CEREBRAL PARENCHYMA: Extensive periventricular, subcortical and deep white matter lucency is observed . This is probably secondary to advanced microvascular ischemic change. There is no indication of rec ent infarction. There is evidence of remote small deep infarctions capsular distribution. MIDLINE SAMANTHA FT OR HERNIATION: There is no mass effect. CEREBELLUM / BRAINSTEM: Brainstem has an unremarkable appearance. Age related cerebellar atrophy is n oted. MIDLINE STRUCTURES:Pituitary gland has an unremarkable appearance. No abnormalities are seen in the p ineal region. INTRACRANIAL VESSELS:Calcified atherosclerotic plaque is present along the course of the cavernous se gments of both internal carotid arteries. Similar findings are seen at the distal vertebral arteries. ORBITS: visualized portions of the orbits have an unremarkable appearance. SOFT TISSUES of HEAD: No significant abnormality. CALVARIUM: Evaluation of bone windows reveals no abnormalities. PARANASAL SINUSES / MASTOID AIR CELLS: Paranasal sinuses are free from inflammatory mucosal disease. Mastoid air cells are normally pneumatized. ADDITIONAL FINDINGS: None. IMPRESSION: 1. Advanced microvascular ischemic change. 2. Evidence of remote bilateral gangliocapsular infarctions. 3. No acute abnormalities are identified. No significant interval change. CODE STROKE: Time of Communication (PACK OUT OPERATOR/CDT): 1555 Central standard time Licensed Practitioner Receiving Report: Dr. Morton of the [facility] emergency department. Signer Name: Rigo Marshall MD Signed: 02/25/2021 4:58 PM Workstation Name: [id number]
--- NOTE | 2021-02-25 17:37 | Cat Scan Report ---
CTA neck without and with intravenous contrast material CLINICAL HISTORY: Cerebrovascular accident. Difficulty speaking. TECHNIQUE: Following acquisition of a timing bolus 0.625 mm thick contiguous axial scans were obtained from aort ic arch to the skull base during rapid bolus intravenous contrast infusion. In addition to evaluation of axial source images multiplanar reconstructions were produced and reviewed for this report. 3 irina ne MIP reconstructions were produced and reviewed. Contrast dose report: Omnipaque 350: 100 ml, administered intravenously All CT examinations performed at this facility utilize modulated dose reduction, iterative reconstruc tion or weight-based dosing, as appropriate, to obtain a radiation dose which is as low as can reason ably be achieved. FINDINGS: Thoracic aorta:No abnormalities are identified along the course of the thoracic aorta..The origins of the great vessels have an unremarkable appearance. Brachiocephalic artery, left common carotid arter y origin and left subclavian artery all have an unremarkable appearance. Right carotid artery: Calcified atherosclerotic plaque is observed at the right carotid bulb extendin g up into the proximal R ICA. There is no associated stenosis. Left carotid artery: No abnormalities are noted along the course of the left common carotid artery, a t the left carotid bifurcation or along the course of the cervical segments of the LICA. Posterior circulation:The vertebral arteries have an unremarkable appearance. Both vertebral arteries contribute to the basilar artery origin. The basilar artery has an unremarkable appearance. The degree of stenosis, if any, is determined utilizing NASCET like criteria. In this case there is no indication of hemodynamically significant stenosis at the carotid bifurcations or elsewhere. Evaluation of the nonvascular soft tissue structures reveal no abnormality. There is no indication of cervical lymphadenopathy. No abnormalities are seen along the course of the airway. Visualized porti ons of the parotid glands and the submandibular salivary glands have a normal appearance. Thyroid gla nd has a normal appearance. Evaluation of the lung apices reveals no evidence of lung nodule or infil trate. Evaluation of the cervical spine is remarkable for mild cervical spondylosis without evidence of cent ral canal stenosis. Severe bilateral foraminal stenosis is present at the C5-6 level. IMPRESSION: 1. No indication of hemodynamically significant stenosis at the carotid bifurcations or elsewhere. Signer Name: Rigo Marshall MD Signed: 02/25/2021 5:32 PM Workstation Name: [id number]
--- NOTE | 2021-02-25 17:37 | XRay Report ---
CHEST 1 VIEW 02/25/2021 5:17 PM INDICATION / CLINICAL INFORMATION: stroke symptoms. Speech disturbance. Code stroke. COMPARISON: 08/05/20 FINDINGS: SUPPORT DEVICES: None. HEART / MEDIASTINUM: No significant abnormality. LUNGS / PLEURA: No significant pulmonary or pleural abnormality. No pneumothorax. ADDITIONAL FINDINGS: No significant additional findings. IMPRESSION: 1. No acute findings. No change. Signer Name: Marvin Collins MD Signed: 02/25/2021 5:33 PM Workstation Name: [id number]
--- NOTE | 2021-02-25 17:40 | Cat Scan Report ---
CTA head with intravenous contrast CLINICAL HISTORY: Post-CODE STROKE PROTOCOL, Hx of prior stroke(s) TECHNIQUE: 0.625 mm thick contiguous axial scans were obtained from the skull base to the skull vertex during r apid bolus administration of intravenous contrast material. Multiplanar reconstructions were produced in the coronal and sagittal planes. In addition 3 plane MIP instructions were produced and reviewed for this report. The axial source images and reconstructed images were reviewed for this report. CONTRAST DOSE REPORT: Omnipaque 350: 100 ml administered intravenously. All CT scans at this location are performed using CT dose reduction for ALARA by means of automated e xposure control. FINDINGS: Internal carotid arteries: Calcified atherosclerotic plaque is seen along the course the cavernous se gments of both internal carotid arteries without associated hemodynamically significant stenosis. Middle cerebral arteries:Normal and symmetrical M1 segments of the middle cerebral arteries are demon strated. No abnormalities are seen on evaluation of the insular or opercular branches. Anterior cerebral arteries:Bilaterally symmetrical A1 segments are demonstrated. No abnormalities are seen along the course of the A2 segments or their visualized pericallosal branches. An intact anteri or communicating artery is visualized. Vertebral arteries:Bilaterally symmetrical vertebral arteries are demonstrated. Both vertebral arteri es contribute to the basilar artery origin. Basilar artery:Basilar artery has an unremarkable appearance. Posterior cerebral arteries:Bilaterally symmetrical posterior cerebral arteries are identified. Bila teral posterior communicating arteries are identified. Dural sinuses: Dural venous sinuses are well demonstrated on this exam. There is no evidence of dural sinus thrombosis. IMPRESSION: 1. No indication of large vessel occlusion or significant intercranial stenosis. Signer Name: Rigo Marshall MD Signed: 02/25/2021 5:36 PM Workstation Name: [id number]
[2021-02-25 18:07] LABS: Hematocrit 38.7 % (35.5-45.6); Hemoglobin 12.3 gm/dl (11.8-15.2); Mean Corpuscular HGB Conc 32 % (32-34); Mean Corpuscular Volume 77 fl (84-94); Platelet Count 206 K/mm3 (140-440); Red Blood Count 5.05 M/mm3 (3.65-5.03); Red Cell Distribution Width 15.8 % (13.2-15.2)
[2021-02-25 18:21] LABS: INR 1.17 (0.87-1.13)
[2021-02-25 18:22] LABS: Partial Thromboplastin Time 33.2 Sec. (24.2-36.6); Thrombin Time 17.3 Sec. (15.1-19.6)
[2021-02-25 18:26] LABS: Alanine Aminotransferase 24 units/L (7-56); Albumin 3.8 g/dL (3.9-5); BUN/Creatinine Ratio 18; Blood Urea Nitrogen 16 mg/dL (9-20); Calcium 9.1 mg/dL (8.4-10.2); Hemolysis Index 31
--- NOTE | 2021-02-25 18:31 | Consultation ---
History of Present Illness Consult date: 02/25/21 Medications and Allergies Allergies Allergy/AdvReac Type Severity Reaction Status Date / Time No Known Allergies Allergy Unverified 12/22/18 12:19 Home Medications Medication Instructions Recorded Confirmed Last Taken Type Acetaminophen [Non-Aspirin Extra 500 mg PO Q6HR PRN #30 tablet 08/05/20 02/25/21 Unknown Rx Strength] Famotidine [Pepcid] 20 mg PO BID PRN #60 tablet 08/05/20 02/25/21 Unknown Rx Ondansetron [Zofran Odt] 4 mg PO Q8HR PRN #20 tab.rapdis 08/05/20 02/25/21 Unknown Rx Pravastatin [Pravachol] 40 mg PO QHS 08/05/20 02/25/21 Unknown History amLODIPine 2.5 mg PO DAILY 08/05/20 02/25/21 Unknown History levETIRAcetam [Keppra TAB] 1,500 mg PO BID #120 tablet 08/05/20 02/25/21 Unknown Rx Physical Examination - Vital Signs Vital Signs: Vital Signs Resp Pulse Ox 18 99 02/25/21 18:01 02/25/21 18:01 Results - Laboratory Findings CBC and BMP: 02/25/21 17:22 02/25/21 17:22 Abnormal Lab Findings: Abnormal Labs 02/25/21 02/25/21 17:22 17:22 WBC 11.9 H RBC 5.05 H MCV 77 L MCH 24 L RDW 15.8 H PT 15.5 H INR 1.17 H Assessment and Plan [facility] Consult Note # Demographics Consult Type: Acute Stroke Level 1 (0-4.5 hrs) Patient Location: Emergency Room First Name: Gigi Last Name: Bebe Date of : 1965 Age: 55 Gender: Male Facility: [facility] Time of Initial Page (Eastern Time): 02/25/2021, 16:26 Time of Return Call (Eastern Time): 02/25/2021, 16:35 # HPI History: 55 yo man with history of two previous strokes in the past, treated with TPA. Today with slurred speech and left sided weakness starting at 12:00. According to the patient he is back to his basline. Last Known Normal: I have collected independent history specific to time last normal or last known well. We have collaborated with the provider and at this time, we have the most current timeline with the information that is available. 1200 # Scores Time of exam and NIHSS (Eastern Time): 02/25/2021, 17:04 Level of Consciousness 1a: [0] = Alert; keenly responsive LOC Questions 1b: [0] = Answers both questions correctly LOC Commands 1c: [0] = Performs both tasks correctly Best Gaze 2: [0] = Normal Visual 3: [0] = No visual loss Facial Palsy 4: [1] = Minor paralysis Motor Arm Left 5a: [1] = Drift Motor Arm Right 5b: [0] = No drift Motor Leg Left 6a: [1] = Drift Motor Leg Right 6b: [0] = No drift Limb Ataxia 7: [0] = Absent Sensory 8: [0] = Normal Best Language 9: [0] = No aphasia Dysarthria 10: [2] = Severe dysarthria Extinction and Inattention 11: [0] = No abnormality NIHSS Total: 5 # Exam Vitals: vital signs reviewed # [id number] Past Medical History: stroke Medications: aspirin Lipitor, Amlodipine # Data Head CT: no bleed preliminarily reviewed by me, please refer to radiology read for official reading CTA Head: no large vessel occlusion per radiologist read # Assessment Impression: Slurred speech and left-sided weakness. Differential includes stroke/TIA vs recrudescence of previous stroke symptoms. # Plan Thrombolytic/Intervention: NOT IV Thrombolysis or IA Intervention candidate Thrombolytic Exclusion: > 4.5 hours Intraarterial Exclusion: no large vessel occlusion (LVO) Imaging: (urgency: STAT): MRI Brain without contrast Imaging: (urgency: routine): MRI Brain without contrast Therapy/Evaluation: NPO until swallow evaluation PT/OT evaluation speech/swallow consultation DVT Prophylaxis: SCD chemical DVT prophylaxis Other: permissive hypertension Additional Recommendations: Metabolic and infectious workup MRI brain to further rule out stroke Disposition: admit # [employer] Telemedicine: Interactive 2 way audio and visual telecommunication technology was utilized during this visit
[2021-02-25 18:53] LABS: Total Cells Counted 100
[2021-02-25 18:54] LABS: Anisocytosis Few; Hypochromasia 1+
[2021-02-25] MEDS ORDERED: oxyCODONE /ACETAMINOPHEN 5-325MG TAB PO PRN (19:58)
[2021-02-25] MEDS ORDERED: ALUM-MAG HYDROXIDE-SIMETHICONE 200-200-20MG/5ML ORAL LIQD 30 ML PO PRN (19:58)
[2021-02-25] MEDS ORDERED: METOCLOPRAMIDE 10 MG/2 ML INJ IV PRN (19:58)
[2021-02-25] MEDS ORDERED: ACETAMINOPHEN 325 MG TAB PO PRN (19:58)
[2021-02-25] MEDS ORDERED: ONDANSETRON 4 MG/2 ML INJ IV PRN (19:58)
[2021-02-25] MEDS ORDERED: SENNOSIDES 8.6 MG TAB PO PRN (19:58)
[2021-02-25] MEDS ORDERED: MAGNESIUM HYDROXIDE (MOM) ORAL LIQD UDC PO PRN (19:58)
[2021-02-25] MEDS ORDERED: IBUPROFEN 600 MG TAB PO PRN (19:58)
--- NOTE | 2021-02-25 20:15 | Cat Scan Report ---
CT ABDOMEN AND PELVIS WITHOUT CONTRAST INDICATION: Pt complains of abdominal pain and vomiting.. TECHNIQUE: Axial CT images were obtained through the abdomen and pelvis without IV contrast. All CT scans at [facility] location are performed using CT dose reduction for ALARA by means of automated exposure control. COMPARISON: CT abdomen pelvis 08/05/2020 FINDINGS: LOWER CHEST: No significant abnormality. LIVER: No significant abnormality. GALLBLADDER: No significant abnormality. BILE DUCTS: No significant abnormality. PANCREAS: No significant abnormality. SPLEEN: No significant abnormality. ADRENALS: No significant abnormality. RIGHT KIDNEY and URETER: Contrast right renal collecting system from recent head and neck CTA LEFT KIDNEY and URETER: Contrast left renal collecting system. Small 1.7 cm simple left upper pole re nal cyst again noted. STOMACH and SMALL BOWEL: No significant abnormality. COLON: Mild sigmoid diverticulosis. Moderate constipation. APPENDIX: Normal. PERITONEUM: No free fluid. No free air. No fluid collection. LYMPH NODES: No significant adenopathy. AORTA and ARTERIES: No significant abnormality. IVC and VEINS: No significant abnormality. URINARY BLADDER: Contrast noted within urinary bladder which is unremarkable. REPRODUCTIVE ORGANS: No significant abnormality. ADDITIONAL FINDINGS: None. SKELETAL SYSTEM: No significant abnormality. IMPRESSION: 1. No significant abnormality. Signer Name: Jason Handy MD Signed: 02/25/2021 8:10 PM Workstation Name: [id number]
--- NOTE | 2021-02-25 20:31 | History and Physical Report ---
History of Present Illness Date of examination: 02/25/21 Date of admission: 02/25/21 Chief complaint: TIA Abdominal Pain History of present illness: This is a 55-year-old male seen at bedside. Patient reported abdominal pain and a history of CVA with left-sided weakness. Patient also have history of high blood pressure seizure disorder, history of CVA with residual left-sided hemiparesis, dysarthria, seizure disorder, hypertension, hyperlipidemia. Patient ED record patient presents to the ED with unresponsive episode. Per ED record-Patient's noticed patient waking up from a nap and was trembling with episode of vomiting. Patient felt warm to touch and was unable to get out of bed on his own. For a moment, patient was not responsive. He was not as verbal. He has slurred speech at baseline. I reviewed patient medical record, vital signs and medication administration. Radiology report showed CT of the head showed old infarct but no acute process. CTA of the head and neck no acute finding. Checks x-ray donenegative for acute finding. CT abdomen/pelvisresults pending. Past History Past Medical History: hypertension, hyperlipidemia, stroke Past Surgical History: No surgical history Social history: lives with family Family history: no significant family history Medications and Allergies Allergies Allergy/AdvReac Type Severity Reaction Status Date / Time No Known Allergies Allergy Unverified 12/22/18 12:19 Home Medications Medication Instructions Recorded Confirmed Last Taken Type Acetaminophen [Non-Aspirin Extra 500 mg PO Q6HR PRN #30 tablet 08/05/20 02/25/21 Unknown Rx Strength] Famotidine [Pepcid] 20 mg PO BID PRN #60 tablet 08/05/20 02/25/21 Unknown Rx Ondansetron [Zofran Odt] 4 mg PO Q8HR PRN #20 tab.rapdis 08/05/20 02/25/21 Unknown Rx Pravastatin [Pravachol] 40 mg PO QHS 08/05/20 02/25/21 Unknown History amLODIPine 2.5 mg PO DAILY 08/05/20 02/25/21 Unknown History levETIRAcetam [Keppra TAB] 1,500 mg PO BID #120 tablet 08/05/20 02/25/21 Unknown Rx Active Meds: Active Medications Acetaminophen (Acetaminophen 325 Mg Tab) 650 mg PO Q4H PRN PRN Reason: Pain MILD(1-3)/Fever >100.5/SUE Al Hydrox/Mg Hydrox/Simethicone (Alum-Mag Hydroxide-Simethicone [id number]/5ml Oral Liqd 30 Ml) 30 ml PO Q4H PRN PRN Reason: Indigestion Amlodipine Besylate (Amlodipine 5 Mg Tab) 2.5 mg PO DAILY [facility] Enoxaparin Sodium (Enoxaparin 40 Mg/0.4 Ml Inj) 40 mg SUB-Q QDAY [facility] Famotidine (Famotidine 20 Mg/2 Ml Inj) 20 mg IV BID [facility] Ibuprofen (Ibuprofen 600 Mg Tab) 600 mg PO Q6H PRN PRN Reason: Pain, Mild (1-3) Magnesium Hydroxide (Magnesium Hydroxide (Mom) Oral Liqd Udc) 30 ml PO Q4H PRN PRN Reason: Constipation Metoclopramide HCl (Metoclopramide 10 Mg/2 Ml Inj) 10 mg IV Q6H PRN PRN Reason: Nausea And Vomiting Miscellaneous Medication (Levetiracetam [Keppra Tab]) 1,500 mg PO BID [facility] Ondansetron HCl (Ondansetron 4 Mg/2 Ml Inj) 4 mg IV Q8H PRN PRN Reason: Nausea And Vomiting Oxycodone/Acetaminophen (Oxycodone /Acetaminophen 5-325mg Tab) 1 tab PO Q6H PRN PRN Reason: Pain, Moderate (4-6) Pravastatin Sodium (Pravastatin 40 Mg Tab) 40 mg PO QHS [facility] Senna (Sennosides 8.6 Mg Tab) 8.6 mg PO Q12HR PRN PRN Reason: Constipation Sodium Chloride (Sodium Chloride 0.9% 10 Ml Flush Syringe) 10 ml IV PRN PRN PRN Reason: LINE FLUSH Review of Systems Constitutional: weakness Ears, nose, mouth and throat: no epistaxis, no bleeding gums Cardiovascular: high blood pressure Gastrointestinal: abdominal pain Rectal: no hemorrhoids Musculoskeletal: muscle weakness Integumentary: no rash, no pruritis Neurological: no head injury Psychiatric: no disorientation, no hallucinations Endocrine: high blood sugars Hematologic/Lymphatic: no easy bruising, no easy bleeding Allergic/Immunologic: no urticaria, no allergic rhinitis Exam - Constitutional Vitals: Temp Pulse Resp BP Pulse Ox 18 99 02/25/21 18:01 02/25/21 18:01 General appearance: Present: mild distress, well-nourished - EENT Eyes: Present: PERRL ENT: hearing intact, clear oral mucosa - Neck Neck: Present: supple, normal ROM - Respiratory Respiratory effort: normal Respiratory: bilateral: CTA - Cardiovascular Heart rate: 94 Heart Sounds: Present: S1 & S2. Absent: rub, click - Extremities Extremities: pulses symmetrical, No edema Peripheral Pulses: within normal limits - Abdominal General gastrointestinal: Present: soft, non-tender, non-distended, normal bowel sounds Male genitourinary: Present: normal - Integumentary Integumentary: Present: clear, warm, dry - Musculoskeletal Musculoskeletal: gait normal, strength equal bilaterally - Psychiatric Psychiatric: appropriate mood/affect, intact judgment & insight - Neurologic Neurologic: CNII-XII intact, moves all extremities - Allied Health Allied health notes reviewed: nursing HEART Score - HEART Score Troponin: Troponin T < 0.010 ng/mL (0.00-0.029) 02/25/21 17:22 Results - Labs CBC & Chem 7: 02/25/21 17:22 02/25/21 17:22 Labs: Abnormal lab results 02/25/21 02/25/21 02/25/21 Range/Units 17:22 17:22 17:22 WBC 11.9 H (4.5-11.0) K/mm3 RBC 5.05 H (3.65-5.03) M/mm3 MCV 77 L (84-94) fl MCH 24 L (28-32) pg RDW 15.8 H (13.2-15.2) % Seg Neuts % (Manual) 87.0 H (40.0-70.0) % Lymphocytes % (Manual) 9.0 L (13.4-35.0) % Seg Neutrophils # Man 10.4 H (1.8-7.7) K/mm3 Lymphocytes # (Manual) 1.1 L (1.2-5.4) K/mm3 PT 15.5 H (12.2-14.9) Sec. INR 1.17 H (0.87-1.13) Sodium 136 L (137-145) mmol/L Glucose 70 L (75-100) mg/dL Albumin 3.8 L (3.9-5) g/dL Assessment and Plan - Patient Problems (1) TIA (transient ischemic attack) Current Visit: Yes Status: Acute Plan to address problem: Patient has a history of CVA with left-sided hemiparesis CT of the neck and CT of the head-no acute finding CT of the head showed an old infarct but no acute abnormality seen Chest x-rayno acute finding PT/OT and speech pathologist to evaluate and treat. MRI of the brain to rule out acute stroke. (2) HTN (hypertension) Current Visit: No Status: Acute Qualifiers: Hypertension type: essential hypertension Plan to address problem: Monitor blood pressure Continue with home antihypertensive As needed hydralazine (3) Seizure disorder Current Visit: No Status: Acute Plan to address problem: Continue home Keppra Seizure precaution per protocol (4) HLD (hyperlipidemia) Current Visit: No Status: Chronic Qualifiers: Hyperlipidemia type: mixed hyperlipidemia Qualified Code(s): E78.2 - Mixed hyperlipidemia Plan to address problem: Resume statin (5) DVT prophylaxis Current Visit: No Status: Acute Plan to address problem: Subcutaneous Lovenox (6) Full code status Current Visit: Yes Status: Acute Plan to address problem: Patient is full CODE STATUS
[2021-02-25] MEDS: ASPIRIN EC 81 MG TAB PO SCH (20:54)
[2021-02-25] MEDS: PRAVASTATIN 40 MG TAB PO SCH (21:35)
[2021-02-25] MEDS: levETIRAcetam 500 MG TAB PO SCH (21:36)
[2021-02-25] MEDS: FAMOTIDINE 20 MG/2 ML INJ IV SCH (21:37)
[2021-02-26] MEDS ORDERED: hydrALAZINE 20 MG/1 ML INJ IV PRN (05:21)
[2021-02-26 06:09] LABS: Basophils % (Auto) 0.3 % (0.0-1.8); Eosinophils % (Auto) 0.2 % (0.0-4.3); Hematocrit 36.3 % (35.5-45.6); Hemoglobin 11.6 gm/dl (11.8-15.2); Lymphocytes # (Auto) 1.6 K/mm3 (1.2-5.4); Mean Corpuscular HGB Conc 32 % (32-34); Mean Corpuscular Volume 76 fl (84-94); Monocytes # (Auto) 1.1 K/mm3 (0.0-0.8); Monocytes % (Auto) 8.2 % (0.0-7.3); Platelet Count 200 K/mm3 (140-440); Red Blood Count 4.78 M/mm3 (3.65-5.03); Red Cell Distribution Width 15.8 % (13.2-15.2)
[2021-02-26 06:15] LABS: Alanine Aminotransferase 22 units/L (7-56); Albumin 3.7 g/dL (3.9-5); BUN/Creatinine Ratio 16; Blood Urea Nitrogen 18 mg/dL (9-20); Hemolysis Index 0
--- NOTE | 2021-02-26 09:45 | Progress Note ---
Assessment and Plan Assessment and plan: - Patient Problems (1) TIA (transient ischemic attack), possibly Current Visit: Yes Status: Acute Plan to address problem: Patient has a history of CVA with left-sided hemiparesis CT of the neck and CT of the head-no acute finding CT of the head showed an old infarct but no acute abnormality seen Chest x-rayno acute finding PT/OT and speech pathologist to evaluate and treat. MRI of the brain to rule out acute stroke. (2) HTN (hypertension) Current Visit: No Status: Acute Qualifiers: Hypertension type: essential hypertension Plan to address problem: Monitor blood pressure Continue with home antihypertensive As needed hydralazine (3) Seizure disorder Current Visit: No Status: Acute Plan to address problem: Continue home Keppra Seizure precaution per protocol (4) HLD (hyperlipidemia) Current Visit: No Status: Chronic Qualifiers: Hyperlipidemia type: mixed hyperlipidemia Qualified Code(s): E78.2 - Mixed hyperlipidemia Plan to address problem: Resume statin (5) DVT prophylaxis Current Visit: No Status: Acute Plan to address problem: Subcutaneous Lovenox (6) Full code status Current Visit: Yes Status: Acute Plan to address problem: Patient is full CODE STATUS 02/26/21 Patient with previous stroke had episode of unresponsiveness, abd pain , therefore brought to ED. CT Head no acute changes CT Abd no acute abnormality For MRI Brain. History Interval history: Unresponsiveness episode, resolved abd pain Hospitalist Physical - Physical exam Narrative exam: Gen:Not in acute distress, lying in bed, HEENT:Normocephalic, atraumatic Neck:supple, no JVD Lungs: Clear to auscultation bilaterally, no wheeze Heart:S1 and S2 reg, no murmurs, rubs or gallop Abd:Soft, non tender, non distended, normal bowel sounds Ext:No edema. no clubbing, no cyanosis Neuro:Awake, alert, dysarthria, left sided weakness from previous stroke - Constitutional Vitals: Temp Pulse Resp BP Pulse Ox 97.9 F 78 20 127/65 95 02/26/21 08:24 02/26/21 08:24 02/26/21 08:24 02/26/21 08:24 02/26/21 08:24 HEART Score - HEART Score Troponin: Troponin T < 0.010 ng/mL (0.00-0.029) 02/25/21 17:22 Results - Labs CBC & Chem 7: 02/26/21 05:19 02/26/21 05:19 Labs: Laboratory Last Values WBC 13.5 K/mm3 (4.5-11.0) H 02/26/21 05:19 RBC 4.78 M/mm3 (3.65-5.03) 02/26/21 05:19 Hgb 11.6 gm/dl (11.8-15.2) L 02/26/21 05:19 Hct 36.3 % (35.5-45.6) 02/26/21 05:19 MCV 76 fl (84-94) L 02/26/21 05:19 MCH 24 pg (28-32) L 02/26/21 05:19 MCHC 32 % (32-34) 02/26/21 05:19 RDW 15.8 % (13.2-15.2) H 02/26/21 05:19 Plt Count 200 K/mm3 (140-440) 02/26/21 05:19 Lymph % (Auto) 12.0 % (13.4-35.0) L 02/26/21 05:19 [place] % (Auto) 8.2 % (0.0-7.3) H 02/26/21 05:19 Eos % (Auto) 0.2 % (0.0-4.3) 02/26/21 05:19 Baso % (Auto) 0.3 % (0.0-1.8) 02/26/21 05:19 Lymph # (Auto) 1.6 K/mm3 (1.2-5.4) 02/26/21 05:19 [place] # (Auto) 1.1 K/mm3 (0.0-0.8) H 02/26/21 05:19 Eos # (Auto) 0.0 K/mm3 (0.0-0.4) 02/26/21 05:19 Baso # (Auto) 0.0 K/mm3 (0.0-0.1) 02/26/21 05:19 Add Manual Diff Complete 02/25/21 17:22 Total Counted 100 02/25/21 17:22 Seg Neutrophils % 79.3 % (40.0-70.0) H 02/26/21 05:19 Seg Neuts % (Manual) 87.0 % (40.0-70.0) H 02/25/21 17:22 Lymphocytes % (Manual) 9.0 % (13.4-35.0) L 02/25/21 17:22 Monocytes % (Manual) 4.0 % (0.0-7.3) 02/25/21 17:22 Nucleated RBC % Not Reportable 02/25/21 17:22 Seg Neutrophils # 10.7 K/mm3 (1.8-7.7) H 02/26/21 05:19 Seg Neutrophils # Man 10.4 K/mm3 (1.8-7.7) H 02/25/21 17:22 Band Neutrophils # 0.0 K/mm3 02/25/21 17:22 Lymphocytes # (Manual) 1.1 K/mm3 (1.2-5.4) L 02/25/21 17:22 Abs React Lymphs (Man) 0.0 K/mm3 02/25/21 17:22 Monocytes # (Manual) 0.5 K/mm3 (0.0-0.8) 02/25/21 17:22 Eosinophils # (Manual) 0.0 K/mm3 (0.0-0.4) 02/25/21 17:22 Basophils # (Manual) 0.0 K/mm3 (0.0-0.1) 02/25/21 17:22 Metamyelocytes # 0.0 K/mm3 02/25/21 17:22 Myelocytes # 0.0 K/mm3 02/25/21 17:22 Promyelocytes # 0.0 K/mm3 02/25/21 17:22 Blast Cells # 0.0 K/mm3 02/25/21 17:22 WBC Morphology Not Reportable 02/25/21 17:22 Hypersegmented Neuts Not Reportable 02/25/21 17:22 Hyposegmented Neuts Not Reportable 02/25/21 17:22 Hypogranular Neuts Not Reportable 02/25/21 17:22 Smudge Cells Not Reportable 02/25/21 17:22 Toxic Granulation Not Reportable 02/25/21 17:22 Toxic Vacuolation Not Reportable 02/25/21 17:22 Dohle Bodies Not Reportable 02/25/21 17:22 Pelger-Huet Anomaly Not Reportable 02/25/21 17:22 Mony Rods Not Reportable 02/25/21 17:22 Platelet Estimate Not Reportable 02/25/21 17:22 Clumped Platelets Not Reportable 02/25/21 17:22 Plt Clumps, EDTA Not Reportable 02/25/21 17:22 Large Platelets Not Reportable 02/25/21 17:22 Giant Platelets Not Reportable 02/25/21 17:22 Platelet Satelliting Not Reportable 02/25/21 17:22 Plt Morphology Comment Not Reportable 02/25/21 17:22 RBC Morphology Not Reportable 02/25/21 17:22 Dimorphic RBCs Not Reportable 02/25/21 17:22 Polychromasia Not Reportable 02/25/21 17:22 Hypochromasia 1+ 02/25/21 17:22 Poikilocytosis Not Reportable 02/25/21 17:22 Anisocytosis Few 02/25/21 17:22 Microcytosis Not Reportable 02/25/21 17:22 Macrocytosis Not Reportable 02/25/21 17:22 Spherocytes Not Reportable 02/25/21 17:22 Pappenheimer Bodies Not Reportable 02/25/21 17:22 Sickle Cells Not Reportable 02/25/21 17:22 Target Cells Not Reportable 02/25/21 17:22 Tear Drop Cells Not Reportable 02/25/21 17:22 Ovalocytes Not Reportable 02/25/21 17:22 Helmet Cells Not Reportable 02/25/21 17:22 Cobos-Avard Bodies Not Reportable 02/25/21 17:22 Regan Rings Not Reportable 02/25/21 17:22 [place] Cells Not Reportable 02/25/21 17:22 Bite Cells Not Reportable 02/25/21 17:22 Crenated Cell Not Reportable 02/25/21 17:22 Elliptocytes Not Reportable 02/25/21 17:22 Acanthocytes (Spur) Not Reportable 02/25/21 17:22 Rouleaux Not Reportable 02/25/21 17:22 Hemoglobin C Crystals Not Reportable 02/25/21 17:22 Schistocytes Not Reportable 02/25/21 17:22 Malaria parasites Not Reportable 02/25/21 17:22 Chu Bodies Not Reportable 02/25/21 17:22 Hem Pathologist Commnt No 02/25/21 17:22 PT 15.5 Sec. (12.2-14.9) H 02/25/21 17:22 INR 1.17 (0.87-1.13) H 02/25/21 17:22 APTT 33.2 Sec. (24.2-36.6) 02/25/21 17:22 Thrombin Time 17.3 Sec. (15.1-19.6) 02/25/21 17:22 Sodium 139 mmol/L (137-145) 02/26/21 05:19 Potassium 4.0 mmol/L (3.6-5.0) 02/26/21 05:19 Chloride 103.8 mmol/L (98-107) 02/26/21 05:19 Carbon Dioxide 26 mmol/L (22-30) 02/26/21 05:19 Anion Gap 13 mmol/L 02/26/21 05:19 BUN 18 mg/dL (9-20) 02/26/21 05:19 Creatinine 1.1 mg/dL (0.8-1.3) 02/26/21 05:19 Estimated GFR > 60 ml/min 02/26/21 05:19 BUN/Creatinine Ratio 16 % 02/26/21 05:19 Glucose 91 mg/dL (75-100) 02/26/21 05:19 Hemoglobin A1c 5.6 % (4-6) 02/25/21 17:22 Calcium 9.0 mg/dL (8.4-10.2) 02/26/21 05:19 Total Bilirubin 0.90 mg/dL (0.1-1.2) 02/26/21 05:19 AST 23 units/L (5-40) 02/26/21 05:19 ALT 22 units/L (7-56) 02/26/21 05:19 Alkaline Phosphatase 105 units/L (35-129) 02/26/21 05:19 Troponin T < 0.010 ng/mL (0.00-0.029) 02/25/21 17:22 Total Protein 7.3 g/dL (6.3-8.2) 02/26/21 05:19 Albumin 3.7 g/dL (3.9-5) L 02/26/21 05:19 Albumin/Globulin Ratio 1.0 % 02/26/21 05:19 Plasma/Serum Alcohol < 0.01 % (0-0.07) 02/25/21 17:22 Active Medications - Current Medications Current Medications: Generic Name Dose Route Start Last Admin Trade Name Freq PRN Reason Stop Dose Admin Acetaminophen 650 mg 02/25/21 19:58 Acetaminophen 325 Mg Tab PO Q4H PRN Pain MILD(1-3)/Fever >100.5/SUE Al Hydrox/Mg Hydrox/Simethicone 30 ml 02/25/21 19:58 Alum-Mag Hydroxide-Simethicone [id number]/5ml Oral Liqd 30 Ml PO Q4H PRN Indigestion Amlodipine Besylate 2.5 mg 02/26/21 10:00 Amlodipine 5 Mg Tab PO DAILY RASHMI Aspirin 81 mg 02/25/21 21:00 02/25/21 20:54 Aspirin Ec 81 Mg Tab PO 81 mg QDAY RASHMI Administration Enoxaparin Sodium 40 mg 02/26/21 10:00 Enoxaparin 40 Mg/0.4 Ml Inj SUB-Q QDAY RASHMI Famotidine 20 mg 02/25/21 22:00 02/25/21 21:37 Famotidine 20 Mg/2 Ml Inj IV 20 mg BID RASHMI Administration Hydralazine HCl 5 mg 02/26/21 05:21 Hydralazine 20 Mg/1 Ml Inj IV Q4HR PRN Hypertension Ibuprofen 600 mg 02/25/21 19:58 Ibuprofen 600 Mg Tab PO Q6H PRN Pain, Mild (1-3) Levetiracetam 1,500 mg 02/25/21 22:00 02/25/21 21:36 Levetiracetam 500 Mg Tab PO 1,500 mg BID RASHMI Administration Magnesium Hydroxide 30 ml 02/25/21 19:58 Magnesium Hydroxide (Mom) Oral Liqd Udc PO Q4H PRN Constipation Metoclopramide HCl 10 mg 02/25/21 19:58 Metoclopramide 10 Mg/2 Ml Inj IV Q6H PRN Nausea And Vomiting Ondansetron HCl 4 mg 02/25/21 19:58 Ondansetron 4 Mg/2 Ml Inj IV Q8H PRN Nausea And Vomiting Oxycodone/Acetaminophen 1 tab 02/25/21 19:58 Oxycodone /Acetaminophen 5-325mg Tab PO Q6H PRN Pain, Moderate (4-6) Pravastatin Sodium 40 mg 02/25/21 22:00 02/25/21 21:35 Pravastatin 40 Mg Tab PO 40 mg QHS RASHMI Administration Senna 8.6 mg 02/25/21 19:58 Sennosides 8.6 Mg Tab PO Q12HR PRN Constipation Sodium Chloride 10 ml 02/25/21 19:58 Sodium Chloride 0.9% 10 Ml Flush Syringe IV PRN PRN LINE FLUSH
[2021-02-26] MEDS: ENOXAPARIN 40 MG/0.4 ML INJ SUB-Q SCH (10:37)
[2021-02-26] MEDS: FAMOTIDINE 20 MG/2 ML INJ IV SCH ×2 (10:37→21:46)
[2021-02-26] MEDS: ASPIRIN EC 81 MG TAB PO SCH (10:37)
[2021-02-26] MEDS: amLODIPine 5 MG TAB PO SCH (10:37)
[2021-02-26] MEDS: levETIRAcetam 500 MG TAB PO SCH ×2 (10:37→21:46)
[2021-02-26] MEDS: PRAVASTATIN 40 MG TAB PO SCH (21:46)
[2021-02-27 07:43] LABS: Hematocrit 41.1 % (35.5-45.6); Hemoglobin 13.1 gm/dl (11.8-15.2); Mean Corpuscular HGB Conc 32 % (32-34); Mean Corpuscular Volume 78 fl (84-94); Platelet Count 199 K/mm3 (140-440); Red Blood Count 5.28 M/mm3 (3.65-5.03); Red Cell Distribution Width 16.1 % (13.2-15.2)
[2021-02-27] MEDS: levETIRAcetam 500 MG TAB PO SCH ×2 (09:01→22:00)
[2021-02-27] MEDS: FAMOTIDINE 20 MG/2 ML INJ IV SCH ×2 (09:01→22:00)
[2021-02-27] MEDS: ENOXAPARIN 40 MG/0.4 ML INJ SUB-Q SCH (09:01)
[2021-02-27] MEDS: amLODIPine 5 MG TAB PO SCH (09:01)
[2021-02-27] MEDS: ASPIRIN EC 81 MG TAB PO SCH (09:01)
--- NOTE | 2021-02-27 10:39 | Consultation ---
History of Present Illness Consult date: 02/27/21 Reason for Consult: Change in mentation ,Hx of CVA with left side weakness History of present illness: This is a 55-year-old male seen at bedside. Patient reported abdominal pain and a history of CVA with left-sided weaknessX 3 years ago . Patient also have history of high blood pressure and seizure disorder, history of CVA with residual left-sided hemiparesis, slurred speech, hypertension, hyperlipidemia. Patient ED record patient presents to the ED with unresponsive episode. Per ED record-Patient's noticed patient waking up from a nap and was trembling with episode of vomiting. Patient felt warm to touch and was unable to get out of bed on his own. For a moment, patient was not responsive. He was not as verbal. He has slurred speech at baseline. I reviewed patient medical record, vital signs and medication administration. Radiology report showed CT of the head showed old infarct but no acute process. CTA of the head and neck no acute finding. Checks x-ray donenegative for acute finding. CT abdomen/pelvisis unrevealing pt. was evaluated by teleneurology -had NIH#4 pt. is not candidate for thrombectomy MRI today is remarkable for right lateral temporal subacute infarct with remote BG infarct and hemorrhagic transformation -echo is pending -EEG is pending -he is supposedly on Keppra 1500 mg bid ? compliance Past History Past Medical History: hypertension, hyperlipidemia, stroke, seizure Past Surgical History: No surgical history Social history: lives with family Family history: no significant family history Medications and Allergies Allergies Allergy/AdvReac Type Severity Reaction Status Date / Time No Known Allergies Allergy Unverified 12/22/18 12:19 Home Medications Medication Instructions Recorded Confirmed Last Taken Type Acetaminophen [Non-Aspirin Extra 500 mg PO Q6HR PRN #30 tablet 08/05/20 02/25/21 Unknown Rx Strength] Famotidine [Pepcid] 20 mg PO BID PRN #60 tablet 08/05/20 02/25/21 Unknown Rx Ondansetron [Zofran Odt] 4 mg PO Q8HR PRN #20 tab.rapdis 08/05/20 02/25/21 Unknown Rx Pravastatin [Pravachol] 40 mg PO QHS 08/05/20 02/25/21 Unknown History amLODIPine 2.5 mg PO DAILY 08/05/20 02/25/21 Unknown History levETIRAcetam [Keppra TAB] 1,500 mg PO BID #120 tablet 08/05/20 02/25/21 Unknown Rx Active Meds: Active Medications Acetaminophen (Acetaminophen 325 Mg Tab) 650 mg PO Q4H PRN PRN Reason: Pain MILD(1-3)/Fever >100.5/SUE Al Hydrox/Mg Hydrox/Simethicone (Alum-Mag Hydroxide-Simethicone [id number]/5ml Oral Liqd 30 Ml) 30 ml PO Q4H PRN PRN Reason: Indigestion Amlodipine Besylate (Amlodipine 5 Mg Tab) 2.5 mg PO DAILY RASHMI Enoxaparin Sodium (Enoxaparin 40 Mg/0.4 Ml Inj) 40 mg SUB-Q QDAY RASHMI Famotidine (Famotidine 20 Mg/2 Ml Inj) 20 mg IV BID RASHMI Ibuprofen (Ibuprofen 600 Mg Tab) 600 mg PO Q6H PRN PRN Reason: Pain, Mild (1-3) Magnesium Hydroxide (Magnesium Hydroxide (Mom) Oral Liqd Udc) 30 ml PO Q4H PRN PRN Reason: Constipation Metoclopramide HCl (Metoclopramide 10 Mg/2 Ml Inj) 10 mg IV Q6H PRN PRN Reason: Nausea And Vomiting Miscellaneous Medication (Levetiracetam [Keppra Tab]) 1,500 mg PO BID [facility] Ondansetron HCl (Ondansetron 4 Mg/2 Ml Inj) 4 mg IV Q8H PRN PRN Reason: Nausea And Vomiting Oxycodone/Acetaminophen (Oxycodone /Acetaminophen 5-325mg Tab) 1 tab PO Q6H PRN PRN Reason: Pain, Moderate (4-6) Pravastatin Sodium (Pravastatin 40 Mg Tab) 40 mg PO QHS RASHMI Senna (Sennosides 8.6 Mg Tab) 8.6 mg PO Q12HR PRN PRN Reason: Constipation Sodium Chloride (Sodium Chloride 0.9% 10 Ml Flush Syringe) 10 ml IV PRN PRN PRN Reason: LINE FLUSH Review of Systems Constitutional: weakness Ears, nose, mouth and throat: no epistaxis, no bleeding gums Cardiovascular: high blood pressure Gastrointestinal: abdominal pain Rectal: no hemorrhoids Musculoskeletal: muscle weakness Integumentary: no rash, no pruritis Neurological: no head injury Psychiatric: no disorientation, no hallucinations Endocrine: high blood sugars Hematologic/Lymphatic: no easy bruising, no easy bleeding Allergic/Immunologic: no urticaria, no allergic rhinitis Past History Past Medical History: hypertension, hyperlipidemia, stroke Past Surgical History: No surgical history Social history: lives with family Family history: no significant family history Medications and Allergies Allergies Allergy/AdvReac Type Severity Reaction Status Date / Time No Known Allergies Allergy Unverified 12/22/18 12:19 Home Medications Medication Instructions Recorded Confirmed Last Taken Type Acetaminophen [Non-Aspirin Extra 500 mg PO Q6HR PRN #30 tablet 08/05/20 02/25/21 Unknown Rx Strength] Famotidine [Pepcid] 20 mg PO BID PRN #60 tablet 08/05/20 02/25/21 Unknown Rx Ondansetron [Zofran Odt] 4 mg PO Q8HR PRN #20 tab.rapdis 08/05/20 02/25/21 Unknown Rx Pravastatin [Pravachol] 40 mg PO QHS 08/05/20 02/25/21 Unknown History amLODIPine 2.5 mg PO DAILY 08/05/20 02/25/21 Unknown History levETIRAcetam [Keppra TAB] 1,500 mg PO BID #120 tablet 08/05/20 02/25/21 Unknown Rx Active Meds: Active Medications Acetaminophen (Acetaminophen 325 Mg Tab) 650 mg PO Q4H PRN PRN Reason: Pain MILD(1-3)/Fever >100.5/SUE Al Hydrox/Mg Hydrox/Simethicone (Alum-Mag Hydroxide-Simethicone [phone]/5ml Oral Liqd 30 Ml) 30 ml PO Q4H PRN PRN Reason: Indigestion Amlodipine Besylate (Amlodipine 5 Mg Tab) 2.5 mg PO DAILY [facility] Last Admin: 02/27/21 09:01 Dose: 2.5 mg Documented by: Aspirin (Aspirin Ec 81 Mg Tab) 81 mg PO QDAY [facility] Last Admin: 02/27/21 09:01 Dose: 81 mg Documented by: Enoxaparin Sodium (Enoxaparin 40 Mg/0.4 Ml Inj) 40 mg SUB-Q QDAY [facility] Last Admin: 02/27/21 09:01 Dose: 40 mg Documented by: Famotidine (Famotidine 20 Mg/2 Ml Inj) 20 mg IV BID [facility] Last Admin: 02/27/21 09:01 Dose: 20 mg Documented by: Hydralazine HCl (Hydralazine 20 Mg/1 Ml Inj) 5 mg IV Q4HR PRN PRN Reason: Hypertension Ibuprofen (Ibuprofen 600 Mg Tab) 600 mg PO Q6H PRN PRN Reason: Pain, Mild (1-3) Levetiracetam (Levetiracetam 500 Mg Tab) 1,500 mg PO BID [facility] Last Admin: 02/27/21 09:01 Dose: 1,500 mg Documented by: Magnesium Hydroxide (Magnesium Hydroxide (Mom) Oral Liqd Udc) 30 ml PO Q4H PRN PRN Reason: Constipation Metoclopramide HCl (Metoclopramide 10 Mg/2 Ml Inj) 10 mg IV Q6H PRN PRN Reason: Nausea And Vomiting Ondansetron HCl (Ondansetron 4 Mg/2 Ml Inj) 4 mg IV Q8H PRN PRN Reason: Nausea And Vomiting Oxycodone/Acetaminophen (Oxycodone /Acetaminophen 5-325mg Tab) 1 tab PO Q6H PRN PRN Reason: Pain, Moderate (4-6) Pravastatin Sodium (Pravastatin 40 Mg Tab) 40 mg PO QHS [facility] Last Admin: 02/26/21 21:46 Dose: 40 mg Documented by: Senna (Sennosides 8.6 Mg Tab) 8.6 mg PO Q12HR PRN PRN Reason: Constipation Sodium Chloride (Sodium Chloride 0.9% 10 Ml Flush Syringe) 10 ml IV PRN PRN PRN Reason: LINE FLUSH Last Admin: 02/27/21 09:02 Dose: 10 ml Documented by: Physical Examination - Vital Signs Vital Signs: Vital Signs Resp Pulse Ox 18 99 02/25/21 18:01 02/25/21 18:01 - Constitutional General appearance: comfortable - EENT EENT: Present: PERRL, mucous membranes moist - Respiratory Respiratory: Present: chest non-tender, lungs clear, rhonchi - Cardiovascular Cardiovascular: Present: regular rate, normal S1, normal S2 Extremities: Present: no peripheral edema bilatateraly, no clubbing, cyanosis - Gastrointestinal Gastrointestinal: Present: normoactive bowel sounds - Integumentary Integumentary: Present: normal - Neurologic Cranial nerve examination: PERRL, EOMI, other (left facial droop , no visual field deficit) Speech examination: other (slurred speech) Detailed motor examination: other (left upper 3+/5 and lower is 4-/5 with increased tone left side, gait not done) Results - Laboratory Findings CBC and BMP: 02/27/21 06:35 02/26/21 05:19 Abnormal Lab Findings: Abnormal Labs 02/25/21 02/25/21 02/25/21 17:22 17:22 17:22 WBC 11.9 H RBC 5.05 H Hgb MCV 77 L MCH 24 L RDW 15.8 H Lymph % (Auto) [place] % (Auto) [place] # (Auto) Seg Neutrophils % Seg Neuts % (Manual) 87.0 H Lymphocytes % (Manual) 9.0 L Seg Neutrophils # Seg Neutrophils # Man 10.4 H Lymphocytes # (Manual) 1.1 L PT 15.5 H INR 1.17 H Sodium 136 L Glucose 70 L Albumin 3.8 L 02/26/21 02/26/21 02/27/21 05:19 05:19 06:35 WBC 13.5 H 13.9 H RBC 5.28 H Hgb 11.6 L MCV 76 L 78 L MCH 24 L 25 L RDW 15.8 H 16.1 H Lymph % (Auto) 12.0 L [place] % (Auto) 8.2 H [place] # (Auto) 1.1 H Seg Neutrophils % 79.3 H Seg Neuts % (Manual) Lymphocytes % (Manual) Seg Neutrophils # 10.7 H Seg Neutrophils # Man Lymphocytes # (Manual) PT INR Sodium Glucose Albumin 3.7 L Assessment and Plan Assessment and Plan - Patient Problems (1) CVA (transient ischemic attack) -Patient has a history of CVA with left-sided hemiparesis -CTA of the neck and CTA of the head-no acute finding -CT of the head showed an old infarct but no acute abnormality seen -Chest x-rayno acute finding -PT/OT and speech pathologist to evaluate and treat. -MRI of the brain showed right lateral temporal subacute infarct ,with bilateral BG hemorhaggic transformation -he is on ASA 81 mg and Lipitor 40 mg -Echo is pending -LDL is pending -PT/ST eavaluate (2) HTN (hypertension) -Monitor blood pressure -Continue with home antihypertensive - need better control of BP or comply with medication (3) Seizure disorder -Continue home Keppra -Seizure precaution per protocol -Seizure can not be excluded -? compliance with medication -EEG ordered (4) HLD (hyperlipidemia) -Resume statin -LDL (5) DVT prophylaxis -Subcutaneous Lovenox (6) Full code status -Patient is full CODE STATUS
--- NOTE | 2021-02-27 11:36 | Magnetic Resonance Report ---
MR brain wo con INDICATION / CLINICAL INFORMATION: r/o cva, lt sided weakness. TECHNIQUE: Multiplanar, multisequence MR images of the brain were obtained. COMPARISON: CT head from 02/25/2021 FINDINGS: INTRACRANIAL: Punctate focus of restricted effusion in the right lateral temporal lobe along the late ral wall of the ventricle. Encephalomalacia and hemosiderin staining from remote hemorrhages in the b ilateral basal ganglia and left superior frontal gyrus. Numerous scattered tiny foci of hemosiderin s een throughout the supratentorial and infratentorial brain parenchyma Confluent periventricular and c entrum semiovale T2 white matter hyperintensities most consistent with sequela of chronic microvascul ar disease. Ventricular caliber is normal. No extra-axial collection. No mass. No herniation. Major intracranial vascular flow voids are preserved. ORBITS: No significant abnormality of visualized orbits. SINUSES / MASTOIDS: No significant abnormality of visualized sinuses and mastoid air cells. ADDITIONAL FINDINGS: None. IMPRESSION: 1. Punctate acute lacunar infarction in the right lateral temporal lobe along the ventricular wall. 2. Confluent white matter disease most consistent with advanced premature for age sequela of chronic microvessel disease. Scattered foci of hemosiderin are seen consistent with hypertensive microangiopa thy. 3. Remote bilateral basal ganglia hemorrhages, likely hypertensive in etiology. Signer Name: Pete Waldrop MD Signed: 02/27/2021 11:32 AM Workstation Name: [id number]
--- NOTE | 2021-02-27 12:15 | Progress Note ---
Assessment and Plan Assessment and plan: - Patient Problems (1) TIA (transient ischemic attack), possibly Current Visit: Yes Status: Acute Plan to address problem: Patient has a history of CVA with left-sided hemiparesis CT of the neck and CT of the head-no acute finding CT of the head showed an old infarct but no acute abnormality seen Chest x-rayno acute finding PT/OT and speech pathologist to evaluate and treat. MRI of the brain to rule out acute stroke. (2) HTN (hypertension) Current Visit: No Status: Acute Qualifiers: Hypertension type: essential hypertension Plan to address problem: Monitor blood pressure Continue with home antihypertensive As needed hydralazine (3) Seizure disorder Current Visit: No Status: Acute Plan to address problem: Continue home Keppra Seizure precaution per protocol (4) HLD (hyperlipidemia) Current Visit: No Status: Chronic Qualifiers: Hyperlipidemia type: mixed hyperlipidemia Qualified Code(s): E78.2 - Mixed hyperlipidemia Plan to address problem: Resume statin (5) DVT prophylaxis Current Visit: No Status: Acute Plan to address problem: Subcutaneous Lovenox (6) Full code status Current Visit: Yes Status: Acute Plan to address problem: Patient is full CODE STATUS 02/26/21 Patient with previous stroke had episode of unresponsiveness, abd pain , therefore brought to ED. CT Head no acute changes CT Abd no acute abnormality For MRI Brain. 02/27/21 Patient with previous stroke had episode of unresponsiveness, abd pain , therefore brought to ED. CT Head no acute changes CT Abd no acute abnormality MRI Brain shows acute lacunar infarct right temporal lobe. On Aspirin Neurology following For Echocardiogram, EEG Cont Keppra for seizure disorder History Interval history: Unresponsiveness episode, resolved abd pain Hospitalist Physical - Physical exam Narrative exam: Gen:Not in acute distress, lying in bed, HEENT:Normocephalic, atraumatic Neck:supple, no JVD Lungs: Clear to auscultation bilaterally, no wheeze Heart:S1 and S2 reg, no murmurs, rubs or gallop Abd:Soft, non tender, non distended, normal bowel sounds Ext:No edema. no clubbing, no cyanosis Neuro:Awake, alert, dysarthria, left sided weakness from previous stroke - Constitutional Vitals: Temp Pulse Resp BP Pulse Ox 99.0 F 76 18 168/54 100 02/27/21 08:20 02/27/21 08:20 02/27/21 08:20 02/27/21 08:20 02/27/21 08:20 HEART Score - HEART Score Troponin: Troponin T < 0.010 ng/mL (0.00-0.029) 02/25/21 17:22 Results - Labs CBC & Chem 7: 02/27/21 06:35 02/26/21 05:19 Labs: Laboratory Last Values WBC 13.9 K/mm3 (4.5-11.0) H 02/27/21 06:35 RBC 5.28 M/mm3 (3.65-5.03) H 02/27/21 06:35 Hgb 13.1 gm/dl (11.8-15.2) 02/27/21 06:35 Hct 41.1 % (35.5-45.6) 02/27/21 06:35 MCV 78 fl (84-94) L 02/27/21 06:35 MCH 25 pg (28-32) L 02/27/21 06:35 MCHC 32 % (32-34) 02/27/21 06:35 RDW 16.1 % (13.2-15.2) H 02/27/21 06:35 Plt Count 199 K/mm3 (140-440) 02/27/21 06:35 Lymph % (Auto) 12.0 % (13.4-35.0) L 02/26/21 05:19 [place] % (Auto) 8.2 % (0.0-7.3) H 02/26/21 05:19 Eos % (Auto) 0.2 % (0.0-4.3) 02/26/21 05:19 Baso % (Auto) 0.3 % (0.0-1.8) 02/26/21 05:19 Lymph # (Auto) 1.6 K/mm3 (1.2-5.4) 02/26/21 05:19 [place] # (Auto) 1.1 K/mm3 (0.0-0.8) H 02/26/21 05:19 Eos # (Auto) 0.0 K/mm3 (0.0-0.4) 02/26/21 05:19 Baso # (Auto) 0.0 K/mm3 (0.0-0.1) 02/26/21 05:19 Add Manual Diff Complete 02/25/21 17:22 Total Counted 100 02/25/21 17:22 Seg Neutrophils % 79.3 % (40.0-70.0) H 02/26/21 05:19 Seg Neuts % (Manual) 87.0 % (40.0-70.0) H 02/25/21 17:22 Lymphocytes % (Manual) 9.0 % (13.4-35.0) L 02/25/21 17:22 Monocytes % (Manual) 4.0 % (0.0-7.3) 02/25/21 17:22 Nucleated RBC % Not Reportable 02/25/21 17:22 Seg Neutrophils # 10.7 K/mm3 (1.8-7.7) H 02/26/21 05:19 Seg Neutrophils # Man 10.4 K/mm3 (1.8-7.7) H 02/25/21 17:22 Band Neutrophils # 0.0 K/mm3 02/25/21 17:22 Lymphocytes # (Manual) 1.1 K/mm3 (1.2-5.4) L 02/25/21 17:22 Abs React Lymphs (Man) 0.0 K/mm3 02/25/21 17:22 Monocytes # (Manual) 0.5 K/mm3 (0.0-0.8) 02/25/21 17:22 Eosinophils # (Manual) 0.0 K/mm3 (0.0-0.4) 02/25/21 17:22 Basophils # (Manual) 0.0 K/mm3 (0.0-0.1) 02/25/21 17:22 Metamyelocytes # 0.0 K/mm3 02/25/21 17:22 Myelocytes # 0.0 K/mm3 02/25/21 17:22 Promyelocytes # 0.0 K/mm3 02/25/21 17:22 Blast Cells # 0.0 K/mm3 02/25/21 17:22 WBC Morphology Not Reportable 02/25/21 17:22 Hypersegmented Neuts Not Reportable 02/25/21 17:22 Hyposegmented Neuts Not Reportable 02/25/21 17:22 Hypogranular Neuts Not Reportable 02/25/21 17:22 Smudge Cells Not Reportable 02/25/21 17:22 Toxic Granulation Not Reportable 02/25/21 17:22 Toxic Vacuolation Not Reportable 02/25/21 17:22 Dohle Bodies Not Reportable 02/25/21 17:22 Pelger-Huet Anomaly Not Reportable 02/25/21 17:22 Mony Rods Not Reportable 02/25/21 17:22 Platelet Estimate Not Reportable 02/25/21 17:22 Clumped Platelets Not Reportable 02/25/21 17:22 Plt Clumps, EDTA Not Reportable 02/25/21 17:22 Large Platelets Not Reportable 02/25/21 17:22 Giant Platelets Not Reportable 02/25/21 17:22 Platelet Satelliting Not Reportable 02/25/21 17:22 Plt Morphology Comment Not Reportable 02/25/21 17:22 RBC Morphology Not Reportable 02/25/21 17:22 Dimorphic RBCs Not Reportable 02/25/21 17:22 Polychromasia Not Reportable 02/25/21 17:22 Hypochromasia 1+ 02/25/21 17:22 Poikilocytosis Not Reportable 02/25/21 17:22 Anisocytosis Few 02/25/21 17:22 Microcytosis Not Reportable 02/25/21 17:22 Macrocytosis Not Reportable 02/25/21 17:22 Spherocytes Not Reportable 02/25/21 17:22 Pappenheimer Bodies Not Reportable 02/25/21 17:22 Sickle Cells Not Reportable 02/25/21 17:22 Target Cells Not Reportable 02/25/21 17:22 Tear Drop Cells Not Reportable 02/25/21 17:22 Ovalocytes Not Reportable 02/25/21 17:22 Helmet Cells Not Reportable 02/25/21 17:22 Cobos-[place] Bodies Not Reportable 02/25/21 17:22 [place] Rings Not Reportable 02/25/21 17:22 Marii Cells Not Reportable 02/25/21 17:22 Bite Cells Not Reportable 02/25/21 17:22 Crenated Cell Not Reportable 02/25/21 17:22 Elliptocytes Not Reportable 02/25/21 17:22 Acanthocytes (Spur) Not Reportable 02/25/21 17:22 Rouleaux Not Reportable 02/25/21 17:22 Hemoglobin C Crystals Not Reportable 02/25/21 17:22 Schistocytes Not Reportable 02/25/21 17:22 Malaria parasites Not Reportable 02/25/21 17:22 Chu Bodies Not Reportable 02/25/21 17:22 Hem Pathologist Commnt No 02/25/21 17:22 PT 15.5 Sec. (12.2-14.9) H 02/25/21 17:22 INR 1.17 (0.87-1.13) H 02/25/21 17:22 APTT 33.2 Sec. (24.2-36.6) 02/25/21 17:22 Thrombin Time 17.3 Sec. (15.1-19.6) 02/25/21 17:22 Sodium 139 mmol/L (137-145) 02/26/21 05:19 Potassium 4.0 mmol/L (3.6-5.0) 02/26/21 05:19 Chloride 103.8 mmol/L (98-107) 02/26/21 05:19 Carbon Dioxide 26 mmol/L (22-30) 02/26/21 05:19 Anion Gap 13 mmol/L 02/26/21 05:19 BUN 18 mg/dL (9-20) 02/26/21 05:19 Creatinine 1.1 mg/dL (0.8-1.3) 02/26/21 05:19 Estimated GFR > 60 ml/min 02/26/21 05:19 BUN/Creatinine Ratio 16 % 02/26/21 05:19 Glucose 91 mg/dL (75-100) 02/26/21 05:19 Hemoglobin A1c 5.6 % (4-6) 02/25/21 17:22 Calcium 9.0 mg/dL (8.4-10.2) 02/26/21 05:19 Total Bilirubin 0.90 mg/dL (0.1-1.2) 02/26/21 05:19 AST 23 units/L (5-40) 02/26/21 05:19 ALT 22 units/L (7-56) 02/26/21 05:19 Alkaline Phosphatase 105 units/L (35-129) 02/26/21 05:19 Troponin T < 0.010 ng/mL (0.00-0.029) 02/25/21 17:22 Total Protein 7.3 g/dL (6.3-8.2) 02/26/21 05:19 Albumin 3.7 g/dL (3.9-5) L 02/26/21 05:19 Albumin/Globulin Ratio 1.0 % 02/26/21 05:19 Plasma/Serum Alcohol < 0.01 % (0-0.07) 02/25/21 17:22 Guzmán/IV: Voiding Method Urinal Active Medications - Current Medications Current Medications: Generic Name Dose Route Start Last Admin Trade Name Freq PRN Reason Stop Dose Admin Acetaminophen 650 mg 02/25/21 19:58 Acetaminophen 325 Mg Tab PO Q4H PRN Pain MILD(1-3)/Fever >100.5/SUE Al Hydrox/Mg Hydrox/Simethicone 30 ml 02/25/21 19:58 Alum-Mag Hydroxide-Simethicone 908-386-05zr/5ml Oral Liqd 30 Ml PO Q4H PRN Indigestion Amlodipine Besylate 2.5 mg 02/26/21 10:00 02/27/21 09:01 Amlodipine 5 Mg Tab PO 2.5 mg DAILY RASHMI Administration Aspirin 81 mg 02/25/21 21:00 02/27/21 09:01 Aspirin Ec 81 Mg Tab PO 81 mg QDAY RASHMI Administration Enoxaparin Sodium 40 mg 02/26/21 10:00 02/27/21 09:01 Enoxaparin 40 Mg/0.4 Ml Inj SUB-Q 40 mg QDAY RASHMI Administration Famotidine 20 mg 02/25/21 22:00 02/27/21 09:01 Famotidine 20 Mg/2 Ml Inj IV 20 mg BID RASHMI Administration Hydralazine HCl 5 mg 02/26/21 05:21 Hydralazine 20 Mg/1 Ml Inj IV Q4HR PRN Hypertension Ibuprofen 600 mg 02/25/21 19:58 Ibuprofen 600 Mg Tab PO Q6H PRN Pain, Mild (1-3) Levetiracetam 1,500 mg 02/25/21 22:00 02/27/21 09:01 Levetiracetam 500 Mg Tab PO 1,500 mg BID RASHMI Administration Magnesium Hydroxide 30 ml 02/25/21 19:58 Magnesium Hydroxide (Mom) Oral Liqd Udc PO Q4H PRN Constipation Metoclopramide HCl 10 mg 02/25/21 19:58 Metoclopramide 10 Mg/2 Ml Inj IV Q6H PRN Nausea And Vomiting Ondansetron HCl 4 mg 02/25/21 19:58 Ondansetron 4 Mg/2 Ml Inj IV Q8H PRN Nausea And Vomiting Oxycodone/Acetaminophen 1 tab 02/25/21 19:58 Oxycodone /Acetaminophen 5-325mg Tab PO Q6H PRN Pain, Moderate (4-6) Pravastatin Sodium 40 mg 02/25/21 22:00 02/26/21 21:46 Pravastatin 40 Mg Tab PO 40 mg QHS RASHMI Administration Senna 8.6 mg 02/25/21 19:58 Sennosides 8.6 Mg Tab PO Q12HR PRN Constipation Sodium Chloride 10 ml 02/25/21 19:58 02/27/21 09:02 Sodium Chloride 0.9% 10 Ml Flush Syringe IV 10 ml PRN PRN Administration LINE FLUSH
[2021-02-27 16:47] LABS: Chol/HDL Ratio 1.7 %
[2021-02-27] MEDS: PRAVASTATIN 40 MG TAB PO SCH (22:00)
--- NOTE | 2021-02-28 08:51 | Electrocardiograph Report ---
[facility] Test Date: 2021-02-25 Test Time: 20:07:10 Pat Name: ADOLFO VINCENT Department: Room: A489 1 Gender: M Manufacturing Assembler: TERRY : 1965 Requested By: CYNTHIA NEFF Order Number: [id number] Reading MD: Nick Sevilla Measurements Intervals [place] Rate: 94 P: 85 MI: 253 QRS: -20 QRSD: 106 T: 127 QT: 358 QTc: 449 Interpretive Statements Sinus rhythm Prolonged MI interval LVH with secondary repolarization abnormality nonspecific st-t No previous ECG available for comparison Electronically Signed On 02-28-2021 8:51:10 EDT by Nick Sevilla
[2021-02-28] MEDS: FAMOTIDINE 20 MG/2 ML INJ IV SCH ×2 (09:49→21:42)
[2021-02-28] MEDS: amLODIPine 5 MG TAB PO SCH (09:49)
[2021-02-28] MEDS: levETIRAcetam 500 MG TAB PO SCH ×2 (09:49→21:42)
[2021-02-28] MEDS: ASPIRIN EC 81 MG TAB PO SCH (09:49)
[2021-02-28] MEDS: ENOXAPARIN 40 MG/0.4 ML INJ SUB-Q SCH (09:49)
--- NOTE | 2021-02-28 10:35 | Progress Note ---
Assessment and Plan Assessment and plan: CVA. Hypertension Seizure disorder Hyperlipidemia 02/28/2021. Patient has a history of CVA with previous left-sided hemiparesis. CTA of the neck and head showed no acute findings but did reveal an old infarct. MRI of the brain show right lateral temporal subacute infarct with bilateral basal ganglia hemorrhagic transformation. Continue aspirin and Lipitor per neurology recommendations. Follow-up echocardiogram. Continue Keppra for seizures and seizure precaution protocol. Follow-up EEG continue PT/OT/ST. Physical therapy recommends outpatient PT History Interval history: No new issues overnight Hospitalist Physical - Constitutional Vitals: Temp Pulse Resp BP Pulse Ox 98.5 F 72 20 135/60 98 02/28/21 09:36 02/28/21 09:36 02/28/21 09:36 02/28/21 09:49 02/28/21 09:36 General appearance: Present: mild distress, well-nourished - EENT Eyes: Present: PERRL, EOM intact ENT: hearing intact, clear oral mucosa, dentition normal - Neck Neck: Present: supple, normal ROM - Respiratory Respiratory effort: normal Respiratory: bilateral: CTA - Cardiovascular Rhythm: regular Heart Sounds: Present: S1 & S2. Absent: gallop, rub - Extremities Extremities: no ischemia, No edema, Full ROM - Abdominal General gastrointestinal: soft, non-tender, non-distended, normal bowel sounds - Integumentary Integumentary: Present: clear, warm, dry - Neurologic Neurologic: CNII-XII intact, moves all extremities HEART Score - HEART Score Troponin: Troponin T < 0.010 ng/mL (0.00-0.029) 02/25/21 17:22 Results - Labs CBC & Chem 7: 02/27/21 06:35 02/26/21 05:19 Labs: Laboratory Last Values WBC 13.9 K/mm3 (4.5-11.0) H 02/27/21 06:35 RBC 5.28 M/mm3 (3.65-5.03) H 02/27/21 06:35 Hgb 13.1 gm/dl (11.8-15.2) 02/27/21 06:35 Hct 41.1 % (35.5-45.6) 02/27/21 06:35 MCV 78 fl (84-94) L 02/27/21 06:35 MCH 25 pg (28-32) L 02/27/21 06:35 MCHC 32 % (32-34) 02/27/21 06:35 RDW 16.1 % (13.2-15.2) H 02/27/21 06:35 Plt Count 199 K/mm3 (140-440) 02/27/21 06:35 Lymph % (Auto) 12.0 % (13.4-35.0) L 02/26/21 05:19 [place] % (Auto) 8.2 % (0.0-7.3) H 02/26/21 05:19 Eos % (Auto) 0.2 % (0.0-4.3) 02/26/21 05:19 Baso % (Auto) 0.3 % (0.0-1.8) 02/26/21 05:19 Lymph # (Auto) 1.6 K/mm3 (1.2-5.4) 02/26/21 05:19 [place] # (Auto) 1.1 K/mm3 (0.0-0.8) H 02/26/21 05:19 Eos # (Auto) 0.0 K/mm3 (0.0-0.4) 02/26/21 05:19 Baso # (Auto) 0.0 K/mm3 (0.0-0.1) 02/26/21 05:19 Add Manual Diff Complete 02/25/21 17:22 Total Counted 100 02/25/21 17:22 Seg Neutrophils % 79.3 % (40.0-70.0) H 02/26/21 05:19 Seg Neuts % (Manual) 87.0 % (40.0-70.0) H 02/25/21 17:22 Lymphocytes % (Manual) 9.0 % (13.4-35.0) L 02/25/21 17:22 Monocytes % (Manual) 4.0 % (0.0-7.3) 02/25/21 17:22 Nucleated RBC % Not Reportable 02/25/21 17:22 Seg Neutrophils # 10.7 K/mm3 (1.8-7.7) H 02/26/21 05:19 Seg Neutrophils # Man 10.4 K/mm3 (1.8-7.7) H 02/25/21 17:22 Band Neutrophils # 0.0 K/mm3 02/25/21 17:22 Lymphocytes # (Manual) 1.1 K/mm3 (1.2-5.4) L 02/25/21 17:22 Abs React Lymphs (Man) 0.0 K/mm3 02/25/21 17:22 Monocytes # (Manual) 0.5 K/mm3 (0.0-0.8) 02/25/21 17:22 Eosinophils # (Manual) 0.0 K/mm3 (0.0-0.4) 02/25/21 17:22 Basophils # (Manual) 0.0 K/mm3 (0.0-0.1) 02/25/21 17:22 Metamyelocytes # 0.0 K/mm3 02/25/21 17:22 Myelocytes # 0.0 K/mm3 02/25/21 17:22 Promyelocytes # 0.0 K/mm3 02/25/21 17:22 Blast Cells # 0.0 K/mm3 02/25/21 17:22 WBC Morphology Not Reportable 02/25/21 17:22 Hypersegmented Neuts Not Reportable 02/25/21 17:22 Hyposegmented Neuts Not Reportable 02/25/21 17:22 Hypogranular Neuts Not Reportable 02/25/21 17:22 Smudge Cells Not Reportable 02/25/21 17:22 Toxic Granulation Not Reportable 02/25/21 17:22 Toxic Vacuolation Not Reportable 02/25/21 17:22 Dohle Bodies Not Reportable 02/25/21 17:22 Pelger-Huet Anomaly Not Reportable 02/25/21 17:22 Mony Rods Not Reportable 02/25/21 17:22 Platelet Estimate Not Reportable 02/25/21 17:22 Clumped Platelets Not Reportable 02/25/21 17:22 Plt Clumps, EDTA Not Reportable 02/25/21 17:22 Large Platelets Not Reportable 02/25/21 17:22 Giant Platelets Not Reportable 02/25/21 17:22 Platelet Satelliting Not Reportable 02/25/21 17:22 Plt Morphology Comment Not Reportable 02/25/21 17:22 RBC Morphology Not Reportable 02/25/21 17:22 Dimorphic RBCs Not Reportable 02/25/21 17:22 Polychromasia Not Reportable 02/25/21 17:22 Hypochromasia 1+ 02/25/21 17:22 Poikilocytosis Not Reportable 02/25/21 17:22 Anisocytosis Few 02/25/21 17:22 Microcytosis Not Reportable 02/25/21 17:22 Macrocytosis Not Reportable 02/25/21 17:22 Spherocytes Not Reportable 02/25/21 17:22 Pappenheimer Bodies Not Reportable 02/25/21 17:22 Sickle Cells Not Reportable 02/25/21 17:22 Target Cells Not Reportable 02/25/21 17:22 Tear Drop Cells Not Reportable 02/25/21 17:22 Ovalocytes Not Reportable 02/25/21 17:22 Helmet Cells Not Reportable 02/25/21 17:22 Cob[place] Bodies Not Reportable 02/25/21 17:22 [place] Rings Not Reportable 02/25/21 17:22 [place] Cells Not Reportable 02/25/21 17:22 Bite Cells Not Reportable 02/25/21 17:22 Crenated Cell Not Reportable 02/25/21 17:22 Elliptocytes Not Reportable 02/25/21 17:22 Acanthocytes (Spur) Not Reportable 02/25/21 17:22 Rouleaux Not Reportable 02/25/21 17:22 Hemoglobin C Crystals Not Reportable 02/25/21 17:22 Schistocytes Not Reportable 02/25/21 17:22 Malaria parasites Not Reportable 02/25/21 17:22 Chu Bodies Not Reportable 02/25/21 17:22 Hem Pathologist Commnt No 02/25/21 17:22 PT 15.5 Sec. (12.2-14.9) H 02/25/21 17:22 INR 1.17 (0.87-1.13) H 02/25/21 17:22 APTT 33.2 Sec. (24.2-36.6) 02/25/21 17:22 Thrombin Time 17.3 Sec. (15.1-19.6) 02/25/21 17:22 Sodium 139 mmol/L (137-145) 02/26/21 05:19 Potassium 4.0 mmol/L (3.6-5.0) 02/26/21 05:19 Chloride 103.8 mmol/L (98-107) 02/26/21 05:19 Carbon Dioxide 26 mmol/L (22-30) 02/26/21 05:19 Anion Gap 13 mmol/L 02/26/21 05:19 BUN 18 mg/dL (9-20) 02/26/21 05:19 Creatinine 1.1 mg/dL (0.8-1.3) 02/26/21 05:19 Estimated GFR > 60 ml/min 02/26/21 05:19 BUN/Creatinine Ratio 16 % 02/26/21 05:19 Glucose 91 mg/dL (75-100) 02/26/21 05:19 Hemoglobin A1c 5.6 % (4-6) 02/25/21 17:22 Calcium 9.0 mg/dL (8.4-10.2) 02/26/21 05:19 Total Bilirubin 0.90 mg/dL (0.1-1.2) 02/26/21 05:19 AST 23 units/L (5-40) 02/26/21 05:19 ALT 22 units/L (7-56) 02/26/21 05:19 Alkaline Phosphatase 105 units/L (35-129) 02/26/21 05:19 Troponin T < 0.010 ng/mL (0.00-0.029) 02/25/21 17:22 Total Protein 7.3 g/dL (6.3-8.2) 02/26/21 05:19 Albumin 3.7 g/dL (3.9-5) L 02/26/21 05:19 Albumin/Globulin Ratio 1.0 % 02/26/21 05:19 Triglycerides 88 mg/dL (2-149) 02/27/21 13:58 Cholesterol 94 mg/dL (50-199) 02/27/21 13:58 LDL Cholesterol Direct 26 mg/dL (50-130) L 02/27/21 13:58 HDL Cholesterol 55 mg/dL (40-59) 02/27/21 13:58 Cholesterol/HDL Ratio 1.70 % 02/27/21 13:58 Plasma/Serum Alcohol < 0.01 % (0-0.07) 02/25/21 17:22 Guzmán/IV: Voiding Method Urinal Active Medications - Current Medications Current Medications: Generic Name Dose Route Start Last Admin Trade Name Freq PRN Reason Stop Dose Admin Acetaminophen 650 mg 02/25/21 19:58 Acetaminophen 325 Mg Tab PO Q4H PRN Pain MILD(1-3)/Fever >100.5/SUE Al Hydrox/Mg Hydrox/Simethicone 30 ml 02/25/21 19:58 Alum-Mag Hydroxide-Simethicone [id number]/5ml Oral Liqd 30 Ml PO Q4H PRN Indigestion Amlodipine Besylate 2.5 mg 02/26/21 10:00 02/28/21 09:49 Amlodipine 5 Mg Tab PO 2.5 mg DAILY RASHMI Administration Aspirin 81 mg 02/25/21 21:00 02/28/21 09:49 Aspirin Ec 81 Mg Tab PO 81 mg QDAY RASHMI Administration Enoxaparin Sodium 40 mg 02/26/21 10:00 02/28/21 09:49 Enoxaparin 40 Mg/0.4 Ml Inj SUB-Q 40 mg QDAY RASHMI Administration Famotidine 20 mg 02/25/21 22:00 02/28/21 09:49 Famotidine 20 Mg/2 Ml Inj IV 20 mg BID RASHMI Administration Hydralazine HCl 5 mg 02/26/21 05:21 02/27/21 13:30 Hydralazine 20 Mg/1 Ml Inj IV 5 mg Q4HR PRN Administration Hypertension Ibuprofen 600 mg 02/25/21 19:58 Ibuprofen 600 Mg Tab PO Q6H PRN Pain, Mild (1-3) Levetiracetam 1,500 mg 02/25/21 22:00 02/28/21 09:49 Levetiracetam 500 Mg Tab PO 1,500 mg BID RASHMI Administration Magnesium Hydroxide 30 ml 02/25/21 19:58 Magnesium Hydroxide (Mom) Oral Liqd Udc PO Q4H PRN Constipation Metoclopramide HCl 10 mg 02/25/21 19:58 Metoclopramide 10 Mg/2 Ml Inj IV Q6H PRN Nausea And Vomiting Ondansetron HCl 4 mg 02/25/21 19:58 Ondansetron 4 Mg/2 Ml Inj IV Q8H PRN Nausea And Vomiting Oxycodone/Acetaminophen 1 tab 02/25/21 19:58 Oxycodone /Acetaminophen 5-325mg Tab PO Q6H PRN Pain, Moderate (4-6) Pravastatin Sodium 40 mg 02/25/21 22:00 02/27/21 22:00 Pravastatin 40 Mg Tab PO 40 mg QHS RASHMI Administration Senna 8.6 mg 02/25/21 19:58 Sennosides 8.6 Mg Tab PO Q12HR PRN Constipation Sodium Chloride 10 ml 02/25/21 19:58 02/28/21 09:50 Sodium Chloride 0.9% 10 Ml Flush Syringe IV 10 ml PRN PRN Administration LINE FLUSH
--- NOTE | 2021-02-28 12:59 | Progress Note ---
Assessment and Plan Assessment and Plan - Patient Problems (1) CVA (transient ischemic attack) -Patient has a history of CVA with left-sided hemiparesis/ mild contracture -CTA of the neck and CTA of the head-no acute finding -CT of the head showed an old infarct but no acute abnormality seen -Chest x-rayno acute finding -PT/OT and speech pathologist to evaluate and treat. -MRI of the brain showed right lateral temporal subacute infarct ,with bilateral BG hemorhaggic transformation -he is on ASA 81 mg and Lipitor 40 mg -Echo is remarkable for EF>70% with left atrial hypertrophy -LDL #26 -PT/ST eavaluate (2) HTN (hypertension) -Monitor blood pressure -Continue with home antihypertensive - need better control of BP or comply with medication (3) Seizure disorder -Continue home Keppra -Seizure precaution per protocol -Seizure can not be excluded -? compliance with medication -EEG ordered (4) HLD (hyperlipidemia) -Resume statin -LDL #26 (5) DVT prophylaxis -Subcutaneous Lovenox (6) Full code status -Patient is full CODE STATUS will sign off need follow up with PCP and neurology will review EEG seizure precaution No driving due to left hemiplegia + ? seizure not sure about compliance with medications Maintain ASA 81 mg and Lipitor 40 mg Subjective Date of service: 02/28/21 Principal diagnosis: CVA with hx of left hemeplegia,HTN Interval history: doing well today with PT using semi walker BP is better controlled LDL is noted EEG is pending denied seizure Objective - Vital Sign Vital Signs - 12hr 02/28/21 02/28/21 02/28/21 05:16 09:36 09:49 Temperature 98.2 F 98.5 F Pulse Rate 82 72 Respiratory 18 20 Rate Blood Pressure 135/60 135/60 Blood Pressure 160/70 [Left] O2 Sat by Pulse 98 98 Oximetry - General Apperance Constitutional: comfortable - EENT EENT: PERRL, mucous membranes moist - Respiratory Respiratory: chest non-tender, lungs clear, rhonchi - Cardiovascular Cardiovascular: regular rate, normal S1, normal S2 Extremities: no peripheral edema bilat, no clubbing, cyanosis - Gastrointestinal Gastrointestinal: normoactive bowel sounds - Integumentary Integumentary: normal - Neurologic Cranial nerve examination: PERRL, EOMI, other (slight left facial droop) Speech examination: intact Detailed motor examination: other (left hemiplegia 3+/5 with increase tone ,gait slightly unsteady ) - Laboratory Findings CBC and BMP: 02/27/21 06:35 02/26/21 05:19 Abnormal Lab Findings: Abnormal Labs 02/25/21 02/25/21 02/25/21 17:22 17:22 17:22 WBC 11.9 H RBC 5.05 H Hgb MCV 77 L MCH 24 L RDW 15.8 H Lymph % (Auto) [place] % (Auto) [place] # (Auto) Seg Neutrophils % Seg Neuts % (Manual) 87.0 H Lymphocytes % (Manual) 9.0 L Seg Neutrophils # Seg Neutrophils # Man 10.4 H Lymphocytes # (Manual) 1.1 L PT 15.5 H INR 1.17 H Sodium 136 L Glucose 70 L Albumin 3.8 L LDL Cholesterol Direct 02/26/21 02/26/21 02/27/21 05:19 05:19 06:35 WBC 13.5 H 13.9 H RBC 5.28 H Hgb 11.6 L MCV 76 L 78 L MCH 24 L 25 L RDW 15.8 H 16.1 H Lymph % (Auto) 12.0 L [place] % (Auto) 8.2 H [place] # (Auto) 1.1 H Seg Neutrophils % 79.3 H Seg Neuts % (Manual) Lymphocytes % (Manual) Seg Neutrophils # 10.7 H Seg Neutrophils # Man Lymphocytes # (Manual) PT INR Sodium Glucose Albumin 3.7 L LDL Cholesterol Direct 02/27/21 13:58 WBC RBC Hgb MCV MCH RDW Lymph % (Auto) [place] % (Auto) [place] # (Auto) Seg Neutrophils % Seg Neuts % (Manual) Lymphocytes % (Manual) Seg Neutrophils # Seg Neutrophils # Man Lymphocytes # (Manual) PT INR Sodium Glucose Albumin LDL Cholesterol Direct 26 L
[2021-02-28] MEDS: PRAVASTATIN 40 MG TAB PO SCH (21:42)
[2021-03-01] MEDS: amLODIPine 5 MG TAB PO SCH (09:38)
[2021-03-01] MEDS: FAMOTIDINE 20 MG/2 ML INJ IV SCH (09:39)
[2021-03-01] MEDS: ENOXAPARIN 40 MG/0.4 ML INJ SUB-Q SCH (09:39)
[2021-03-01] MEDS: levETIRAcetam 500 MG TAB PO SCH (09:39)
[2021-03-01] MEDS: ASPIRIN EC 81 MG TAB PO SCH (09:39)
--- NOTE | 2021-03-01 09:53 | Discharge Summary ---
Providers - Providers Date of Admission: 02/26/21 00:41 Date of discharge: 03/01/21 Attending physician: DESIREE SHIN 02/25/21 21:22 Occupational Therapy Evaluate and Treat [CONS] Routine Comment: Reason For Exam: left sided weakness Physical Therapy Evaluation and Treat [CONS] Routine Comment: Reason For Exam: left sided weakness Speech Therapy Evaluation and Treat [CONS] Routine Reason For Exam: r/o dysphagia 02/27/21 09:46 Consult to Physician [CONS] Routine Comment: Consulting Provider: IMANI JUNE Physician Instructions: Reason For Exam: Unresponsiveness, altered mental status 02/27/21 12:14 Speech Therapy Evaluation and Treat [CONS] Routine Reason For Exam: stroke Primary care physician: DIRECTOR OF MUSIC THERAPY Hospitalization Reason for admission: AMS Condition: Stable Hospital course: This is a 55-year-old male seen at bedside. Patient reported abdominal pain and a history of CVA with left-sided weaknessX 3 years ago . Patient also have history of hypertension and seizure disorder, history of CVA with residual left- sided hemiparesis, slurred speech, hyperlipidemia. Patient ED record patient presented to the ED with unresponsive episode. Per ED record-Patient's noticed patient waking up from a nap and was trembling with episode of vomiting. Patient felt warm to touch and was unable to get out of bed on his own. For a moment, patient was not responsive. He was not as verbal. He has slurred speech at baseline. Radiology report showed CT of the head showed old infarct but no acute process. CTA of the head and neck no acute finding. Checks x-ray donenegative for acute finding. CT abdomen/pelvisis unrevealing pt. was evaluated by teleneurology -had NIH#4 pt. was not considered a candidate for thrombectomy MRI was also performed which revealed right lateral temporal subacute infarct with remote BG infarct and hemorrhagic transformation Echocardiogram was completed and revealed moderate concentric left ventricular hypertrophy with RVSP 20 mmHg. EF greater than 70%. Neurology also order EEG which will be reviewed and followed up as an o utpatient. Neurology reports patient can discharge home but No driving due to left hemiplegia + ? seizure not sure about compliance with medications. Continue aspirin and Lipitor 40 mg daily Dedicated discharge time 35 min. Disposition: HOME / SELF CARE / HOMELESS Final Discharge Diagnosis (Prints w/discharge instructions): Right lateral tempo ral subacute infarct with bilateral basal ganglia hemorrhagic transformation, hypertension, seizure disorder, medical noncompliance, hyperlipidemia Core Measure Documentation - Palliative Care Palliative Care/ Comfort Measures: Not Applicable - Core Measures Any of the following diagnoses?: stroke - Stroke Discharge Requirements Statin for LDL = or >70 mg/dl on DC: Yes Anticoag for atrial fib/atrial flutter: Not Applicable Antithrombotic for ischemic stroke: Yes Exam - Constitutional Vitals: Temp Pulse Resp BP Pulse Ox 98.1 F 68 20 184/101 98 03/01/21 08:33 03/01/21 09:38 03/01/21 08:33 03/01/21 09:38 03/01/21 08:33 General appearance: Present: no acute distress, well-nourished - EENT Eyes: Present: PERRL ENT: hearing intact, clear oral mucosa - Neck Neck: Present: supple, normal ROM - Respiratory Respiratory effort: normal Respiratory: bilateral: CTA - Cardiovascular Heart Sounds: Present: S1 & S2. Absent: rub, click - Extremities Extremities: pulses symmetrical, No edema Peripheral Pulses: within normal limits - Abdominal General gastrointestinal: Present: soft, non-tender, non-distended, normal bowel sounds Male genitourinary: Present: normal - Integumentary Integumentary: Present: clear, warm, dry - Musculoskeletal Musculoskeletal: gait normal, strength equal bilaterally - Psychiatric Psychiatric: appropriate mood/affect, intact judgment & insight - Neurologic Neurologic: CNII-XII intact, moves all extremities Plan Activity: advance as tolerated, no driving until cleared by PCP Weight Bearing Status: Weight Bear as Tolerated Diet: low fat, low cholesterol, low salt Special Instructions: physical therapy Durable Medical Equipment Needed Upon Discharge: other (Hemiwalker) Additional Instructions: No driving due to left hemiplegia + ? seizure not sure about compliance with medications Follow up with: PRIMARY CARE, [Primary Care Provider] - 7 Days Prescriptions: amLODIPine 2.5 mg PO DAILY #30 Aspirin EC [Halfprin EC] 81 mg PO QDAY #30 tablet levETIRAcetam [Keppra TAB] 1,500 mg PO BID #120 tablet Pravastatin [Pravachol] 40 mg PO QHS #30
[2021-03-01 15:33] VITALS: BP 172/74
[2021-03-01] MEDS ORDERED: amLODIPine 5 MG TAB PO ONE (16:00)
== END 2021-03-01 16:15 | disposition home or self-care (01) | DRG 65 ==
LOC: ED 16:24 → 4A 02-26 00:41
PROVIDERS: ADMIT Internal Medicine; ATTEND Hospitalist
DX: I63.9 Cerebral infarction, unspecified (principal); G81.94 Hemiplegia, unspecified affecting left nondominant side; I62.9 Nontraumatic intracranial hemorrhage, unspecified; I10 Essential (primary) hypertension; G40.909 Epilepsy, unspecified, not intractable, without status epilepticus; Z82.49 Family history of ischemic heart disease and other diseases of the circulatory system; R29.706 NIHSS score 6; R47.1 Dysarthria and anarthria; R47.81 Slurred speech; Z79.82 Long term (current) use of aspirin; Z79.899 Other long term (current) drug therapy; E78.2 Mixed hyperlipidemia; Z91.14 Patient's other noncompliance with medication regimen
CPT/HCPCS: 36415; 70450; 70496; 70498; 70551; 71045; 74176; 80053; 80061; 80320; 82962; 83036; 84484; 85007; 85025; 85027; 85610; 85670; 85730; 93005; 93306; 95819; 97129; 97130; G0378; A9270-GY; G0480; J0360; J1650; Q9967

== ENCOUNTER 2021-12-31 12:43 | Emergency (ER) | payer MEDICARE ==
--- NOTE | 2021-12-31 13:23 | Cat Scan Report ---
CT HEAD WITHOUT CONTRAST INDICATION / CLINICAL INFORMATION: Expressive aphasia, possible seizure. TECHNIQUE: All CT scans at this location are performed using CT dose reduction for ALARA by means of automated e xposure control. COMPARISON: Head CT 02/25/2021 and MRI brain 02/27/2021 FINDINGS: HEMORRHAGE: No evidence of recent intracranial hemorrhage or extra-axial fluid collection. Patient bentley s sustained remote bilateral gangliocapsular hemorrhagic infarctions. In addition innumerable remote microhemorrhages are present in both cerebral hemispheres and within the sarah and these are likely he morrhagic in etiology. EXTRA-AXIAL SPACES: Cortical sulci and sylvian fissures are enlarged reflecting a degree of parenchym al volume loss which is greater than expected for the patient's age of 56 years. Basilar cisterns hav e an unremarkable appearance. VENTRICULAR SYSTEM: The third and lateral ventricles are mildly enlarged reflecting presence of moder ate parenchymal volume loss. CEREBRAL PARENCHYMA: Extensive periventricular, deep white matter and subcortical matter lucency is o bserved. This is probably secondary to advanced microvascular ischemic change. There is no indication of recent infarction. Is evidence of bilateral remote gangliocapsular infarctions. These were noted to be a hemorrhagic on MRI dated 02/27/2021. Subtle increased attenuation in the right gangliocapsular region likely represents a manifestation of mineralization in this location are unchanged from prior study. MIDLINE SHIFT OR HERNIATION: There is no mass effect. CEREBELLUM / BRAINSTEM: Brainstem has an unremarkable appearance. Age related cerebellar atrophy is n oted. MIDLINE STRUCTURES:Pituitary gland has an unremarkable appearance. No abnormalities are seen in the p ineal region. INTRACRANIAL VESSELS:Calcified atherosclerotic plaque is present along the course of the cavernous se gments of both internal carotid arteries. Similar findings are seen at the distal vertebral arteries. CRANIOCERVICAL JUNCTION:No significant abnormality. ORBITS: visualized portions of the orbits have an unremarkable appearance. SOFT TISSUES of HEAD: No significant abnormality. CALVARIUM: Evaluation of bone windows reveals no abnormalities. PARANASAL SINUSES / MASTOID AIR CELLS: Paranasal sinuses are free from inflammatory mucosal disease. Mastoid air cells are normally pneumatized. ADDITIONAL FINDINGS: None. IMPRESSION: 1. No acute intracranial abnormality. 2. Parenchymal atrophy and microvascular ischemic changes are present greater than expected for age 5 8 years. 3. Remote bilateral gangliocapsular infarctions are again identified. These were noted to be due to r emote hemorrhagic infarction based on MRI findings dated 02/27/2021. CODE STROKE: Time of Communication (MEDICAL DOCTOR/CDT): 1214 Central standard time Licensed Practitioner Receiving Report: Dr. Lloyd [facility] emergency departme nt. Signer Name: Rigo Marshall MD Signed: 12/31/2021 1:19 PM Workstation Name: [id number]
--- NOTE | 2021-12-31 13:48 | Emergency Department Report ---
Blank Doc - Documentation Documentation: [facility] Consult Note # Demographics Consult Type: Acute Stroke Level 1 (0-4.5 hrs) Patient Location: Emergency Room First Name: Gigi Last Name: Bebe Gender: Male Facility: [facility] Time of Initial Page (Eastern Time): 12/31/2021, 12:31 Time of Return Call (Eastern Time): 12/31/2021, 12:32 # HPI History: 56 year old male with hx of stroke with residual left sided weakness on Eliquis. Witnessed seizure by son. Unclear if patient takes anything for seizures, though he states hes had a seizure before. # Scores Level of Consciousness 1a: [0] = Alert; keenly responsive LOC Questions 1b: [0] = Answers both questions correctly LOC Commands 1c: [0] = Performs both tasks correctly Best Gaze 2: [0] = Normal Visual 3: [0] = No visual loss Facial Palsy 4: [0] = Normal symmetrical movements Motor Arm Left 5a: [1] = Drift Motor Arm Right 5b: [0] = No drift Motor Leg Left 6a: [1] = Drift Motor Leg Right 6b: [0] = No drift Limb Ataxia 7: [0] = Absent Sensory 8: [0] = Normal Best Language 9: [0] = No aphasia Dysarthria 10: [1] = Umat-jw-wvranwoh dysarthria Extinction and Inattention 11: [0] = No abnormality NIHSS Total: 3 # PMH-FH-SH Past Medical History: hypertension stroke Social History: lives with family # Data Head CT: no bleed per radiologist read # Assessment Impression: 56 year old male with hx of stroke on eliquis and seizures in the past presents with witnessed seizure at home. PT on keppra 1500 mg BID but seems pt may have missed a dose. Pt back to baseline. No need for repeat imaging as patient back to baseline. Recommendations: 1) Get keppra level now. If subtherapeutic, pt likely had seizure due to poor compliance. Can continue same dose of keppra at that time (load with 2000 mg x1) and continue maintenance dose 2) If Keppra is in therapeutic range then add Vimpat 100 mg BID 3) Patient needs to follow up with Neurologist on discharge. # Plan Labs: CBC comprehensive metabolic panel ESR hemoglobin A1c liver function tests thiamine troponin TSH urine drug screen ua Imaging: (urgency: STAT): CT Head without contrast CT Angiogram Head and CT Angiogram Neck Therapy/Evaluation: PT/OT evaluation speech/swallow consultation Medication: continue home meds Other: If patient has any neurological deterioration please call me back immediately telemetry monitoring seizure precautions I have discussed my recommendations with the referring provider Disposition: admit
[2021-12-31 14:16] LABS: Basophils % (Auto) 0.2 % (0.0-1.8); Eosinophils % (Auto) 0.1 % (0.0-4.3); Hematocrit 42.7 % (35.5-45.6); Hemoglobin 13.4 gm/dl (11.8-15.2); Lymphocytes # (Auto) 0.7 K/mm3 (1.2-5.4); Lymphocytes % (Auto) 5.5 % (13.4-35.0); Mean Corpuscular HGB Conc 31 % (32-34); Mean Corpuscular Volume 77 fl (84-94); Monocytes # (Auto) 1.1 K/mm3 (0.0-0.8); Platelet Count 196 K/mm3 (140-440); Red Blood Count 5.53 M/mm3 (3.65-5.03); Red Cell Distribution Width 15.7 % (13.2-15.2)
[2021-12-31 14:31] LABS: BUN/Creatinine Ratio 19; Blood Urea Nitrogen 15 mg/dL (9-20); Calcium 9.7 mg/dL (8.4-10.2); Hemolysis Index 13
[2021-12-31 15:26] LABS: INR 1.04 (0.87-1.13)
[2021-12-31 15:27] LABS: Partial Thromboplastin Time 28.4 Sec. (24.2-36.6)
--- NOTE | 2021-12-31 16:40 | Cat Scan Report ---
CTA neck without and with intravenous contrast material CLINICAL HISTORY: Expressive aphasia, seizure TECHNIQUE: Following acquisition of a timing bolus 0.625 mm thick contiguous axial scans were obtained from aort ic arch to the skull base during rapid bolus intravenous contrast infusion. In addition to evaluation of axial source images multiplanar reconstructions were produced and reviewed for this report. 3 irina ne MIP reconstructions were produced and reviewed. Contrast dose report: Omnipaque 350: 100 ml, administered intravenously All CT examinations performed at this facility utilize modulated dose reduction, iterative reconstruc tion or weight-based dosing, as appropriate, to obtain a radiation dose which is as low as can reason ably be achieved. FINDINGS: Thoracic aorta:No abnormalities are identified along the course of the thoracic aorta..The origins of the great vessels have an unremarkable appearance. Brachiocephalic artery, left common carotid arter y origin and left subclavian artery all have an unremarkable appearance. Right carotid artery: Calcified atherosclerotic plaque is seen at the right carotid bifurcation exten ding into the proximal R ICA. There is no associated stenosis. Left carotid artery: No abnormalities are noted along the course of the left common carotid artery, a t the left carotid bifurcation or along the course of the cervical segments of the LICA. Posterior circulation:The vertebral arteries have an unremarkable appearance. Both vertebral arteries contribute to the basilar artery origin. The basilar artery has an unremarkable appearance. The degree of stenosis, if any, is determined utilizing NASCET like criteria. In this case there is no indication of hemodynamically significant stenosis at the carotid bifurcations or elsewhere. Evaluation of the thyroid gland is remarkable for a 8mm low-attenuation thyroid nodule or cyst in the anterior aspect of the midpole of the right lobe of the thyroid gland. This requires no further eval uation. Evaluation of the nonvascular soft tissue structures reveal no additional abnormality. There is no in dication of cervical lymphadenopathy. No abnormalities are seen along the course of the airway. Visua lized portions of the parotid glands and the submandibular salivary glands have a normal appearance.. Evaluation of the lung apices reveals no evidence of lung nodule or infiltrate. Evaluation of the cervical spine is remarkable for widespread cervical spondylosis without definite c entral canal stenosis. IMPRESSION: 1. No indication of hemodynamically significant stenosis at the carotid bifurcations or elsewhere. Incidental thyroid nodule in the right lobe measuring 0.8 cm in a patient greater than age 35. Recomm endation based on ACR guidelines: No further evaluation required. CTA head with intravenous contrast CLINICAL HISTORY: Expressive aphasia, seizure TECHNIQUE: 0.625 mm thick contiguous axial scans were obtained from the skull base to the skull vertex during r apid bolus administration of intravenous contrast material. Multiplanar reconstructions were produced in the coronal and sagittal planes. In addition 3 plane MIP instructions were produced and reviewed for this report. The axial source images and reconstructed images were reviewed for this report. CONTRAST DOSE REPORT: Omnipaque 350: 100 ml administered intravenously. All CT scans at this location are performed using CT dose reduction for ALARA by means of automated e xposure control. FINDINGS: Internal carotid arteries: Mild calcified atherosclerotic plaque is seen along the course of the intr acranial segments of both internal carotid arteries. There is no associated stenosis. Middle cerebral arteries:Normal and symmetrical M1 segments of the middle cerebral arteries are demon strated. No abnormalities are seen on evaluation of the insular or opercular branches. Anterior cerebral arteries:Bilaterally symmetrical A1 segments are demonstrated. No abnormalities are seen along the course of the A2 segments or their visualized pericallosal branches. An anterior comm unicating artery is identified. Vertebral arteries:Bilaterally symmetrical vertebral arteries are demonstrated. Both vertebral arteri es contribute to the basilar artery origin. Basilar artery:Basilar artery has an unremarkable appearance. Posterior cerebral arteries:Bilaterally symmetrical posterior cerebral arteries are identified. Late ral posterior communicating arteries are identified. [place] of [place]: Intact. see above. Dural sinuses: Dural venous sinuses are well demonstrated on this exam. There is no evidence of dural sinus thrombosis. IMPRESSION: 1. No indication of hemodynamically significant stenosis or large vessel occlusion. Signer Name: Rigo Marshall MD Signed: 12/31/2021 4:36 PM Workstation Name: [id number]
[2021-12-31] MEDS ORDERED: levETIRAcetam 1000 MG/NS 0.75% 1,000 MG/100 ML BAG IV ONE ×2 (16:55→17:02)
--- NOTE | 2021-12-31 17:05 | Emergency Department Report ---
ED Seizure HPI - General Chief Complaint: Neuro Symptoms/Deficit Stated Complaint: STROKE Time Seen by Provider: 12/31/21 12:45 Source: patient, EMS Mode of arrival: Stretcher Limitations: Physical Limitation - History of Present Illness Initial Comments: 56-year-old male seen at bedside with a past medical history of history of CVA with left-sided weakness X 3 years ago with a more recent stroke 1 year ago. Patient also have history of hypertension and seizure disorder, history of CVA with residual left-sided hemiparesis, slurred speech, hyperlipidemia. He presents to the hospital with a witnessed seizure. Patient states he was sleeping. Seizure was witnessed by son. Patient takes Keppra 1500 mg twice daily and he states he has been compliant with her last dose today. He also is compliant with Eliquis. Patient denies headache and states that he is currently asymptomatic and does not have any new neurodeficits. Patient has been in the ED for over 4 hours at time of my evaluation and was initially a code stroke and seen by telemetry neurologist. Patient received CT head, CT angiogram head and neck without acute findings noted. Neurologist recommends admission, Keppra level, and addition of Vimpat if Keppra is therapeutic but still not controlling patient's seizures. - Related Data Previous Rx's Medication Instructions Recorded Last Taken Type Acetaminophen [Non-Aspirin Extra 500 mg PO Q6HR PRN #30 tablet 08/05/20 Unknown Rx Strength] Aspirin EC [Halfprin EC] 81 mg PO QDAY #30 tablet 03/01/21 Unknown Rx Pravastatin [Pravachol] 40 mg PO QHS #30 03/01/21 Unknown Rx amLODIPine 2.5 mg PO DAILY #30 03/01/21 Unknown Rx levETIRAcetam [Keppra TAB] 1,500 mg PO BID #120 tablet 03/01/21 Unknown Rx Allergies Allergy/AdvReac Type Severity Reaction Status Date / Time No Known Allergies Allergy Unverified 12/22/18 12:19 ED Review of Systems ROS: Stated complaint: STROKE Other details as noted in HPI Comment: All other systems reviewed and negative ED Past Medical Hx - Past Medical History Previous Medical History?: Yes Hx Hypertension: Yes Hx CVA: Yes (left weakness) Hx Congestive Heart Failure: No Hx Diabetes: No Hx Seizures: Yes Hx Asthma: No Hx COPD: No - Social History Smoking Status: Never Smoker - Medications Home Medications: Home Medications Medication Instructions Recorded Confirmed Last Taken Type Acetaminophen [Non-Aspirin Extra 500 mg PO Q6HR PRN #30 tablet 08/05/20 02/25/21 Unknown Rx Strength] Aspirin EC [Halfprin EC] 81 mg PO QDAY #30 tablet 03/01/21 Unknown Rx Pravastatin [Pravachol] 40 mg PO QHS #30 03/01/21 Unknown Rx amLODIPine 2.5 mg PO DAILY #30 03/01/21 Unknown Rx levETIRAcetam [Keppra TAB] 1,500 mg PO BID #120 tablet 03/01/21 Unknown Rx ED Physical Exam - General Limitations: Physical Limitation - Other Other exam information: General: No acute distress Head: Atraumatic Eyes: normal appearance ENT: Moist mucous membranes Neck: Normal appearance, no midline tenderness Chest: Clear to auscultation bilaterally CV: Regular rate and rhythm Abdomen: Soft, normal bowel sounds, nontender, nondistended, no rebound or guarding Back: Normal inspection Extremity: Normal inspection, full range of motion Neuro: Alert O x 3, no facial asymmetry, see NIH stroke scale. Patient states that current deficits are his baseline Psych: Appropriate behavior Skin: No rash ED Course Vital Signs 12/31/21 12/31/21 12/31/21 13:21 13:30 13:42 Temperature 98.6 F Pulse Rate 101 H 90 Respiratory 26 H Rate Blood Pressure 162/80 O2 Sat by Pulse 99 Oximetry 12/31/21 12/31/21 12/31/21 13:46 14:00 14:16 Temperature Pulse Rate 93 H 90 91 H Respiratory 13 17 27 H Rate Blood Pressure 155/82 155/82 150/73 O2 Sat by Pulse 98 99 98 Oximetry 12/31/21 12/31/21 12/31/21 14:30 14:46 15:00 Temperature Pulse Rate 92 H 94 H 92 H Respiratory 23 25 H 24 Rate Blood Pressure 163/76 151/88 164/84 O2 Sat by Pulse 98 98 98 Oximetry 12/31/21 12/31/21 12/31/21 15:16 15:30 16:13 Temperature Pulse Rate 98 H 95 H 109 H Respiratory 23 20 14 Rate Blood Pressure 164/97 164/97 164/97 O2 Sat by Pulse 99 Oximetry 12/31/21 12/31/21 12/31/21 16:16 16:30 16:46 Temperature Pulse Rate 105 H 93 H 92 H Respiratory 18 22 23 Rate Blood Pressure 164/97 164/97 166/99 O2 Sat by Pulse 98 Oximetry 12/31/21 12/31/21 12/31/21 17:00 17:16 17:30 Temperature Pulse Rate 102 H 92 H 91 H Respiratory 18 22 19 Rate Blood Pressure 149/88 174/89 160/87 O2 Sat by Pulse 99 98 98 Oximetry 12/31/21 12/31/21 17:46 18:00 Temperature Pulse Rate 97 H 92 H Respiratory 14 32 H Rate Blood Pressure 159/96 167/85 O2 Sat by Pulse 99 98 Oximetry - Consultations Consultation #1: 12/31/21 Please refer to neurologist note ED Medical Decision Making - Lab Data Result diagrams: 12/31/21 13:41 12/31/21 13:41 Lab Results 12/31/21 12/31/21 12/31/21 Range/Units 13:41 13:41 15:03 WBC 13.3 H (4.5-11.0) K/mm3 RBC 5.53 H (3.65-5.03) M/mm3 Hgb 13.4 (11.8-15.2) gm/dl Hct 42.7 (35.5-45.6) % MCV 77 L (84-94) fl MCH 24 L (28-32) pg MCHC 31 L (32-34) % RDW 15.7 H (13.2-15.2) % Plt Count 196 (140-440) K/mm3 Lymph % (Auto) 5.5 L (13.4-35.0) % [place] % (Auto) 8.0 H (0.0-7.3) % Eos % (Auto) 0.1 (0.0-4.3) % Baso % (Auto) 0.2 (0.0-1.8) % Lymph # (Auto) 0.7 L (1.2-5.4) K/mm3 [place] # (Auto) 1.1 H (0.0-0.8) K/mm3 Eos # (Auto) 0.0 (0.0-0.4) K/mm3 Baso # (Auto) 0.0 (0.0-0.1) K/mm3 Seg Neutrophils % 86.2 H (40.0-70.0) % Seg Neutrophils # 11.5 H (1.8-7.7) K/mm3 PT 15.1 H (12.2-14.9) Sec. INR 1.04 (0.87-1.13) APTT 28.4 (24.2-36.6) Sec. Thrombin Time 28.0 H (15.1-19.6) Sec. Sodium 139 (137-145) mmol/L Potassium 4.0 (3.6-5.0) mmol/L Chloride 103.4 (98-107) mmol/L Carbon Dioxide 20 L (22-30) mmol/L Anion Gap 20 mmol/L BUN 15 (9-20) mg/dL Creatinine 0.8 (0.8-1.3) mg/dL Estimated GFR > 60 ml/min BUN/Creatinine Ratio 19 % Glucose 66 L (75-100) mg/dL Calcium 9.7 (8.4-10.2) mg/dL Magnesium 2.40 H (1.7-2.3) mg/dL - EKG Data -: EKG Interpreted by Ct EKG shows normal: sinus rhythm, intervals (Prolonged IN interval at 241), ST-T waves (No STEMI, LVH with repol ) Rate: normal (92) - EKG Data When compared to previous EKG there are: no significant change - Radiology Data Radiology results: report reviewed CT HEAD WITHOUT CONTRAST INDICATION / CLINICAL INFORMATION: Expressive aphasia, possible seizure. TECHNIQUE: All CT scans at this location are performed using CT dose reduction for ALARA by means of automated exposure control. COMPARISON: Head CT 02/25/2021 and MRI brain 02/27/2021 FINDINGS: HEMORRHAGE: No evidence of recent intracranial hemorrhage or extra-axial fluid collection. 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 In addition innumerable remote microhemorrhages are present in both cerebral hemispheres and within the sarah and these are likely hemorrhagic in etiology. EXTRA-AXIAL SPACES: Cortical sulci and sylvian fissures are enlarged reflecting a degree of parenchymal volume loss which is greater than expected for the patient's age of 56 years. Basilar cisterns have an unremarkable appearance. VENTRICULAR SYSTEM: The third and lateral ventricles are mildly enlarged reflecting presence of moderate parenchymal volume loss. CEREBRAL PARENCHYMA: Extensive periventricular, deep white matter and subcortical matter lucency is observed. This is probably secondary to advanced microvascular ischemic change. There is no indication of recent infarction. Is evidence of bilateral remote gangliocapsular infarctions. These were noted to be a hemorrhagic on MRI dated 02/27/2021. Subtle increased attenuation in the right gangliocapsular region likely represents a manifestation of mineralization in this location are unchanged from prior study. MIDLINE SHIFT OR HERNIATION: There is no mass effect. CEREBELLUM / BRAINSTEM: Brainstem has an unremarkable appearance. Age related cerebellar atrophy is noted. MIDLINE STRUCTURES:Pituitary gland has an unremarkable appearance. No abnormalities are seen in the pineal region. INTRACRANIAL VESSELS:Calcified atherosclerotic plaque is present along the course of the cavernous segments of both internal carotid arteries. Similar findings are seen at the distal vertebral arteries. CRANIOCERVICAL JUNCTION:No significant abnormality. ORBITS: visualized portions of the orbits have an unremarkable appearance. SOFT TISSUES of HEAD: No significant abnormality. CALVARIUM: Evaluation of bone windows reveals no abnormalities. PARANASAL SINUSES / MASTOID AIR CELLS: Paranasal sinuses are free from inflammatory mucosal disease. Mastoid air cells are normally pneumatized. ADDITIONAL FINDINGS: None. IMPRESSION: 1. No acute intracranial abnormality. 2. Parenchymal atrophy and microvascular ischemic changes are present greater than expected for age 56 years. 3. Remote bilateral gangliocapsular infarctions are again identified. These wer e noted to be due to remote hemorrhagic infarction based on MRI findings dated 02/27/2021. - Medical Decision Making 56-year-old male presents to the hospital with complaints of seizure activity. History of seizures status post stroke with residual deficits. Patient is currently at his baseline without complaints. CT head, CT angio head and neck without acute findings. Patient states he is compliant with his Keppra with last dose this morning. Neurology recommendation noted. Case discussed with hospitalist for admission. He will evaluate patient to determine if admission is warranted and dispo the patient Critical Care Time: No Critical care attestation.: If time is entered above; I have spent that time in minutes in the direct care of this critically ill patient, excluding procedure time. ED Disposition Clinical Impression: Seizure, History of CVA with residual deficit, vermin exterminator current use of anticoagulant Disposition: ADMITTED INPATIENT Is pt being admited?: No Condition: Stable Time of Disposition: 19:05 (DR Jennings to [facility] for admission vs d/c) - Assessment Assessment Interval: Baseline - Level of Consciousness 1a. Level of Consciousness: alert/keenly responsive - LOC Questions 1b. LOC Questions: answers both correctly - LOC Command 1c. LOC Commands: performs tasks correctly - Best Gaze 2. Best Gaze: normal - Visual 3. Visual: no visual loss - Facial Palsy 4. Facial Palsy: normal symmetrical movement - Motor Arm 5a. Motor Arm Left: drift 5b. Motor Arm Right: no drift - Motor Leg 6a. Motor Leg Left: drift 6b. Motor Leg Right: no drift - Limb Ataxia 7. Limb Ataxia: absent - Sensory 8. Sensory: normal - Best Language 9. Best Language: no aphasia - Dysarthria 10. Dysarthria: mild/moderate dysarthria - Extinction and Inattention 11. Extinction/Inattention: no abnormality - Scoring Total Score: 3 Stroke Severity: Minor Stroke
[2021-12-31 18:05] VITALS: BP 167/85
--- NOTE | 2022-01-01 13:31 | Electrocardiograph Report ---
[facility] Test Date: 2021-12-31 Test Time: 13:55:12 Pat Name: ADOLFO VINCENT Department: Room: Gender: M [employer]: [employer] : 1965 Requested By: SOBIA HENDRICKS Order Number: [id number] Reading MD: Dionte Bradford Measurements Intervals Mcdonald Rate: 92 P: 94 NE: 241 QRS: -20 QRSD: 103 T: 131 QT: 363 QTc: 450 Interpretive Statements Sinus rhythm Prolonged NE interval LVH with secondary repolarization abnormality Anterior ST elevation, probably due to LVH Compared to ECG 02/25/2021 20:07:10 No significant change noted. Electronically Signed On 01-01-2022 13:30:53 EDT by Dionte Bradford
== END 2021-12-31 20:30 | disposition admitted as inpatient to this hospital (09) ==
LOC: ED 12:43
DX: R56.9 Unspecified convulsions (principal); Z86.73 Personal history of transient ischemic attack (TIA), and cerebral infarction without residual deficits; I10 Essential (primary) hypertension; Z91.09 Other allergy status, other than to drugs and biological substances; Z79.899 Other long term (current) drug therapy
CPT/HCPCS: 36415; 70450; 70496; 70498; 80048; 80177; 83735; 85025; 85610; 85670; 85730; 93005; 96365; 96368; 99284; J1953; Q9967